=== PATIENT | male | born 1985 | race Caucasian/White ===

== ENCOUNTER 2017-01-26 17:17 | Emergency (ER) | payer BC, OTHER ==
[2017-01-26 17:50] VITALS: BP 127/74; PULSE 77; RESP 16; TEMP 98.8
--- NOTE | 2017-01-26 19:11 | ED ---
General Adult HPI - General Chief complaint: Upper Respiratory Infection Stated complaint: ENT Time Seen by Provider: 01/26/17 18:46 Source: patient, RN notes reviewed Mode of arrival: ambulatory Limitations: no limitations - History of Present Illness Initial comments: This is a 31-year-old male who presents with symptoms of sinus pressure that started last . Patient states he is been taking his azithromycin and has one dose left. Patient complains of some ear fullness and sinus headache but denies any cough, sore throat, fever or chills. Patient denies any shortness of breath. Patient denies any recent chest pain, abdominal pain, nausea/vomiting/diarrhea, back pain, numbness, tingling, hematuria, or visual changes, or any other complaints. - Related Data Home Medications Medication Instructions Recorded Confirmed Insulin Aspart [NovoLOG] 5 unit SQ AC-TID 06/03/14 01/26/17 Insulin Glargine [Lantus] 15 unit SQ HS 06/03/14 01/26/17 Azithromycin [Zithromax Z-pack] See Taper PO DAILY 01/26/17 01/26/17 Previous Rx's Medication Instructions Recorded Fluticasone Nasal [place] [Flonase 1 - 2 spray EA NOSTRIL DAILY #1 01/26/17 Nasal [place]] bottle Allergies Allergy/AdvReac Type Severity Reaction Status Date / Time No Known Allergies Allergy Verified 01/26/17 18:45 Review of Systems ROS Statement: Those systems with pertinent positive or pertinent negative responses have been documented in the HPI. ROS Other: All systems not noted in ROS Statement are negative. Past Medical History Past Medical History: Diabetes Mellitus History of Any Multi-Drug Resistant Organisms: None Reported Past Surgical History: No Surgical Hx Reported Past Psychological History: No Psychological Hx Reported Smoking Status: Never smoker Past Alcohol Use History: Occasional Past Drug Use History: Marijuana General Exam - General Exam Comments Initial Comments: General: The patient is awake and alert, in no distress, and does not appear acutely ill. Eye: Pupils are equal, round and reactive to light, extra-ocular movements are intact. No nystagmus. There is normal conjunctiva bilaterally. No signs of icterus. Ears: TMs pink and pearly with intact cone of light bilaterally. Normal external ear canals Nose: Nasal turbinates erythematous and edematous. Mouth and throat: There are moist mucous membranes and no oral lesions. Neck: The neck is supple, there is no tenderness or JVD. Cardiovascular: There is a regular rate and rhythm. No murmur, rub or gallop is appreciated. Respiratory: Lungs are clear to auscultation, respirations are non-labored, breath sounds are equal. No wheezes, stridor, rales, or rhonchi. Musculoskeletal: Normal ROM, no tenderness. Strength 5/5. Sensation intact. Radial pulses equal bilaterally 2+. Neurological: A&O x 3. CN II-XII intact, There are no obvious motor or sensory deficits. Coordination appears grossly intact. Speech is normal. Skin: Skin is warm and dry and no rashes or lesions are noted. Psychiatric: Cooperative, appropriate mood & affect, normal judgment. Limitations: no limitations Course Vital Signs 01/26/17 17:47 Temperature 98.8 F Pulse Rate 77 Respiratory 16 Rate Blood Pressure 127/74 O2 Sat by Pulse 99 Oximetry Medical Decision Making - Medical Decision Making Is a 31-year-old presents with symptoms of sinus infection. Patient has already been treated with antibiotics and still has 1 day left. On physical exam nasal turbinates are erythematous and edematous. Patient is afebrile in the EC today. I discussed that patient should finish his antibiotics. I discussed [id number] nasal rinses and nasal sprays. I discussed over-the- counter decongestants and ALLERGY pills for symptom relief. I discussed that most cases of sinusitis are viral. Patient was given a prescription for Flonase. I discussed that this is a steroid. I discussed that there is a risk that it can interfere with his blood sugar control due to the patient's history of diabetes. Discussed that patient should shop medication if it is affecting his blood glucose levels. I discussed return parameters. Discussed that patient should follow up with PCP in one to 2 days or return to the [facility] for any worsening symptoms or for any further concerns. Patient was receptive to this plan and patient will be discharged home. Disposition Clinical Impression: Sinusitis Disposition: HOME SELF-CARE Condition: Good Instructions: Sinusitis (ED) Additional Instructions: Please use Flonase as prescribed. May also try nasal rinses, Sudafed, Claritin for symptom relief. Please finish entire course of antibiotics currently on. Please use medication as discussed. Please follow-up with family doctor in the next 2 days of symptoms have not improved. Please return to emergency room if the symptoms increase or worsen or for any other concerns. Prescriptions: Fluticasone Nasal [place] [Flonase Nasal [place]] 1 - 2 spray EA NOSTRIL DAILY #1 bottle Referrals: Av Bain MD [Primary Care Provider] - 1-2 days Time of Disposition: 19:11
== END 2017-01-26 19:15 | disposition home or self-care (01) ==
LOC: EC 17:17
DX: J32.9 Chronic sinusitis, unspecified (principal); E11.9 Type 2 diabetes mellitus without complications; Z79.4 Long term (current) use of insulin
CPT/HCPCS: 99283

== ENCOUNTER 2017-01-28 12:30 | Emergency (ER) | payer OTHER ==
[2017-01-28 12:57] VITALS: BP 126/68; PULSE 73; RESP 16; TEMP 98.7
--- NOTE | 2017-01-28 13:20 | ED ---
General Adult HPI - General Chief complaint: Upper Respiratory Infection Stated complaint: Sinus Time Seen by Provider: 01/28/17 13:12 Source: patient, RN notes reviewed Mode of arrival: ambulatory Limitations: no limitations - History of Present Illness Initial comments: 31-year-old male who presents emergency room today with chief complaint of cough congestion and rhinorrhea over the last 10 days. Does admit that he was at the family doctor's office prescribed azithromycin for sinus infection. States that vision is antibiotic is still having the same symptoms. He states he didn't follow up here in the emergency room actually 2 days ago for this complaint was advised [id number] medication such as Flonase, Sudafed, Claritin. States been using this little relief. Does admit that at times feels like he's got fullness and pressure in his head and feels lightheaded at times. He denies any other complaints associated symptoms. Patient denies any recent fever, chills, shortness of breath, chest pain, back pain, abdominal pain , nausea or vomiting, numbness or tingling, dysuria or hematuria, constipation or diarrhea, headaches or visual changes, or any other complaints. - Related Data Home Medications Medication Instructions Recorded Confirmed Insulin Aspart [NovoLOG] 5 unit SQ AC-TID 06/03/14 01/26/17 Insulin Glargine [Lantus] 15 unit SQ HS 06/03/14 01/26/17 Azithromycin [Zithromax Z-pack] See Taper PO DAILY 01/26/17 01/26/17 Previous Rx's Medication Instructions Recorded Fluticasone Nasal [place] [Flonase 1 - 2 spray EA NOSTRIL DAILY #1 01/26/17 Nasal [place]] bottle Amoxicillin/Potassium Clav 1 each PO Q12HR #20 tab 01/28/17 [Augmentin 875-125 Tablet] Allergies Allergy/AdvReac Type Severity Reaction Status Date / Time No Known Allergies Allergy Verified 01/28/17 12:57 Review of Systems ROS Statement: Those systems with pertinent positive or pertinent negative responses have been documented in the HPI. ROS Other: All systems not noted in ROS Statement are negative. Past Medical History Past Medical History: Diabetes Mellitus History of Any Multi-Drug Resistant Organisms: None Reported Past Surgical History: No Surgical Hx Reported Past Psychological History: No Psychological Hx Reported Smoking Status: Never smoker Past Alcohol Use History: Occasional Past Drug Use History: Marijuana General Exam - General Exam Comments Initial Comments: General: The patient is awake and alert, in no distress, and does not appear acutely ill. Eye: Pupils are equal, round and reactive to light, extra-ocular movements are intact. No nystagmus. There is normal conjunctiva bilaterally. No signs of icterus. Ears, nose, mouth and throat: There are moist mucous membranes and no oral lesions. Multiple tenderness over the maxillary sinuses bilaterally. TMs clear bilaterally. Neck: The neck is supple, there is no tenderness or JVD. Cardiovascular: There is a regular rate and rhythm. No murmur, rub or gallop is appreciated. Respiratory: Lungs are clear to auscultation, respirations are non-labored, breath sounds are equal. No wheezes, stridor, rales, or rhonchi. Musculoskeletal: Normal ROM, no tenderness. Strength 5/5. Sensation intact. Pulses equal bilaterally 2+. Neurological: A&O x 3. CN II-XII intact, There are no obvious motor or sensory deficits. Coordination appears grossly intact. Speech is normal. Skin: Skin is warm and dry and no rashes or lesions are noted. Psychiatric: Cooperative, appropriate mood & affect, normal judgment. Limitations: no limitations Course Vital Signs 01/28/17 12:54 Temperature 98.7 F Pulse Rate 73 Respiratory 16 Rate Blood Pressure 126/68 O2 Sat by Pulse 99 Oximetry Medical Decision Making - Medical Decision Making Patient will be placed on Augmentin for sinus infection as he has had symptoms for 10 days with no relief. Advised faulted family doctor. Advised continue [id number] medications. Disposition Clinical Impression: Sinus infection Disposition: HOME SELF-CARE Condition: Good Instructions: Sinusitis (ED) Additional Instructions: Please use medication as discussed. Please follow-up with family doctor in the next 2 days of symptoms have not improved. Please return to emergency room if the symptoms increase or worsen or for any other concerns. Prescriptions: Amoxicillin/Potassium Clav [Augmentin 875-125 Tablet] 1 each PO Q12HR #20 tab Time of Disposition: 13:20
== END 2017-01-28 13:28 | disposition home or self-care (01) ==
LOC: EC 12:30
DX: J32.9 Chronic sinusitis, unspecified (principal); E11.9 Type 2 diabetes mellitus without complications; Z79.4 Long term (current) use of insulin; Z79.51 Long term (current) use of inhaled steroids
CPT/HCPCS: 99283

== ENCOUNTER 2017-02-04 20:19 | Emergency (ER) | payer OTHER ==
--- NOTE | 2017-02-04 20:58 | ED ---
General Adult HPI - General Chief complaint: ENT Stated complaint: Dizziness Time Seen by Provider: 02/04/17 20:37 Source: patient Mode of arrival: EMS Limitations: no limitations - History of Present Illness Initial comments: 31-year-old male patient presents to emergency department after having a near syncopal episode while at work. Patient states that he was working became very dizzy, sounds became muffled, and vision went dark. He states he has been having lightheadedness for the past week. Patient states that during this episode his cheeks became very hot and flushed, and his hands became cold. He states he has had headaches every day for the past 3 days. He states he is currently nauseated, denies any vomiting. Patient denies any chest pain, palpitations, shortness of breath, back pain, weakness, abdominal pain, constipation or diarrhea. Denies any blurred or double vision. Denies any hematuria, dysuria, frequency or urgency. Patient was seen here twice week for sinus symptoms and given antibiotics for sinusitis. Patient does have a past medical history significant for type 1 diabetes. Patient takes 5 units of Humalog before meals and 15 units of Lantus at bedtime. Patient states he does not check his blood sugar due to high cost of test strips. - Related Data Home Medications Medication Instructions Recorded Confirmed Insulin Aspart [NovoLOG] 5 unit SQ AC-TID 06/03/14 02/04/17 Insulin Glargine [Lantus] 15 unit SQ HS 06/03/14 02/04/17 Amoxicillin/Potassium Clav 1 tab PO Q12HR 02/04/17 02/04/17 [Augmentin 875-125 Tablet] Previous Rx's Medication Instructions Recorded Fluticasone Nasal [place] [Flonase 1 - 2 spray EA NOSTRIL DAILY #1 01/26/17 Nasal [place]] bottle Allergies Allergy/AdvReac Type Severity Reaction Status Date / Time No Known Allergies Allergy Verified 02/04/17 20:41 Review of Systems ROS Statement: Those systems with pertinent positive or pertinent negative responses have been documented in the HPI. ROS Other: All systems not noted in ROS Statement are negative. Past Medical History Past Medical History: Diabetes Mellitus History of Any Multi-Drug Resistant Organisms: None Reported Past Surgical History: No Surgical Hx Reported Past Psychological History: No Psychological Hx Reported Smoking Status: Never smoker Past Alcohol Use History: Occasional Past Drug Use History: Marijuana General Exam Limitations: no limitations General appearance: alert, in no apparent distress Head exam: Present: atraumatic, normocephalic, normal inspection Eye exam: Present: normal appearance, PERRL, EOMI. Absent: scleral icterus, conjunctival injection, periorbital swelling ENT exam: Present: normal exam, normal oropharynx, mucous membranes moist. Absent: mucous membranes dry Neck exam: Present: normal inspection. Absent: tenderness, meningismus, lymphadenopathy Respiratory exam: Present: normal lung sounds bilaterally. Absent: respiratory distress, wheezes, rales, rhonchi, stridor Cardiovascular Exam: Present: regular rate, normal rhythm, normal heart sounds. Absent: systolic murmur, diastolic murmur, rubs, gallop, clicks GI/Abdominal exam: Present: soft, normal bowel sounds. Absent: distended, tenderness, guarding, rebound, rigid Extremities exam: Present: normal inspection, full ROM, normal capillary refill. Absent: tenderness, pedal edema, joint swelling, calf tenderness Back exam: Present: normal inspection Neurological exam: Present: alert, oriented X3, CN II-XII intact, other ( Strength equal in all extremities 5/5.) Psychiatric exam: Present: normal affect, normal mood Skin exam: Present: warm, dry, intact, normal color. Absent: rash Course Vital Signs 02/04/17 20:38 Temperature 100.1 F H Pulse Rate 62 Respiratory 18 Rate Blood Pressure 141/92 O2 Sat by Pulse 98 Oximetry Medical Decision Making - Medical Decision Making 31-year-old male patient presented to emergency department today for a near syncopal episode while at work. Patient does have a past medical history significant for type 1 diabetes mellitus, he does take insulin, but he does not check his blood sugars. Patient also is being currently treated for a sinus infection. It is believed at this time that symptoms may be related to hypoglycemic episodes. Patient will be encouraged to monitor his blood glucose , and continue his antibiotics for treatment of his sinusitis. Patient will be discharged home at this time to follow-up with his primary care provider in one to 2 days for a recheck. Patient verbalizes understanding and agrees with this plan. - Lab Data Result diagrams: 02/04/17 20:57 02/04/17 20:57 Lab Results 03/15/17 03/15/17 03/15/17 Range/Units 20:57 20:57 21:03 WBC 5.8 (3.8-10.6) k/uL RBC 4.48 (4.30-5.90) m/uL Hgb 13.6 (13.0-17.5) gm/dL Hct 40.2 (39.0-53.0) % MCV 89.7 (80.0-100.0) fL MCH 30.3 (25.0-35.0) pg MCHC 33.8 (31.0-37.0) g/dL RDW 12.5 (11.5-15.5) % Plt Count 209 (150-450) k/uL Neutrophils % 73 % Lymphocytes % 17 % Monocytes % 7 % Eosinophils % 0 % Basophils % 0 % Neutrophils # 4.3 (1.3-7.7) k/uL Lymphocytes # 1.0 (1.0-4.8) k/uL Monocytes # 0.4 (0-1.0) k/uL Eosinophils # 0.0 (0-0.7) k/uL Basophils # 0.0 (0-0.2) k/uL Sodium 141 (137-145) mmol/L Potassium 4.0 (3.5-5.1) mmol/L Chloride 101 (98-107) mmol/L Carbon Dioxide 30 (22-30) mmol/L Anion Gap 10 mmol/L BUN 12 (9-20) mg/dL Creatinine 0.84 (0.66-1.25) mg/dL Est GFR (MDRD) Af Amer >60 (>60 ml/min/1.73 sqM) Est GFR (MDRD) Non-Af >60 (>60 ml/min/1.73 sqM) Glucose 235 H (74-99) mg/dL POC Glucose (mg/dL) 241 H (75-99) mg/dL POC Glu Rn Transfer ID [place], [place] Calcium 9.6 (8.4-10.2) mg/dL Total Bilirubin 1.2 (0.2-1.3) mg/dL AST 21 (17-59) U/L ALT 40 (21-72) U/L Alkaline Phosphatase 71 (38-126) U/L Total Protein 7.1 (6.3-8.2) g/dL Albumin 4.2 (3.5-5.0) g/dL Acetone, Qual Negative (Negative) - Radiology Data Radiology results: report reviewed CT of the brain without contrast was obtained, impression by Dr. Ch shows no acute intracranial hemorrhage, mass effect, or midline shift. Disposition Clinical Impression: Near syncope, Uncontrolled diabetes mellitus Disposition: HOME SELF-CARE Condition: Stable Instructions: Near Syncope (ED), Type 1 Diabetes in Adults (ED), Sinusitis (ED) Additional Instructions: Monitor blood glucose prior to administering insulin. Follow-up with primary care provider in one to 2 days for recheck. Complete antibiotic prescription and full. Return to emergency department for any worsening, new, or concerning symptoms. Referrals: Av Bain MD [Primary Care Provider] - 1-2 days Time of Disposition: 21:58
[2017-02-04 21:14] LABS: Basophils % (A) 0 %; CH 31.1; CHCM 34.8; Eosinophils % (A) 0 %; HCT 40.2 % (39.0-53.0); HDW 2.57; HGB 13.6 gm/dL (13.0-17.5); Luc # (Auto) 0.16; Luc % (Auto) 3; Lymphocytes % (A) 17 %; MCH 30.3 pg (25.0-35.0); MCHC 33.8 g/dL (31.0-37.0); MCV 89.7 fL (80.0-100.0); Mean Platelet Volume 8.9; Monocytes # (A) 0.4 k/uL (0-1.0); Monocytes % (A) 7 %; Neutrophils # (A) 4.3 k/uL (1.3-7.7); Neutrophils % (A) 73 %; RBC 4.48 m/uL (4.30-5.90); RDW 12.5 % (11.5-15.5); WBC 5.8 k/uL (3.8-10.6); WBC (Perox) 5.89
[2017-02-04 21:14] LABS: Glucose,Whole Blood 241 mg/dL (75-99)
[2017-02-04 21:28] LABS: ALT 40 U/L (21-72); AST 21 U/L (17-59); Alkaline Phosphatase 71 U/L (38-126); Anion Gap 10 mmol/L; Blood Urea Nitrogen 12 mg/dL (9-20); Calcium 9.6 mg/dL (8.4-10.2); Carbon Dioxide 30 mmol/L (22-30); Chloride 101 mmol/L (98-107); Glucose 235 mg/dL (74-99); Non-African American GFR(MDRD) >60 (>60 ml/min/1.73 sqM); Sodium 141 mmol/L (137-145); Total Bilirubin 1.2 mg/dL (0.2-1.3); Total Protein 7.1 g/dL (6.3-8.2)
--- NOTE | 2017-02-04 21:50 | CT ---
EXAMINATION TYPE: CT brain wo con DATE OF EXAM: 02/04/2017 9:20 PM COMPARISON: NONE HISTORY: Patient states he has been having sinus and ear congestion, near syncope today. CT DLP: 1133.10 mGycm Automated exposure control for dose reduction was used. FINDINGS: There is no acute intracranial hemorrhage, mass effect, or midline shift identified. The ventricles and sulci are within normal limits in size. Skeletal structures are unremarkable. The globes are intact. The mastoid sinus air cells and middle ear cavities and visualized paranasal s inuses are all clear with the exception of minimal mucosal thickening involving the left maxillary si nus. IMPRESSION: No acute intracranial hemorrhage, mass effect, or midline shift is seen.
[2017-02-04 22:03] VITALS: BP 139/82; PULSE 61; RESP 20; TEMP 99.3
== END 2017-02-04 22:21 | disposition home or self-care (01) ==
LOC: EC 20:19
DX: R55 Syncope and collapse (principal); E10.65 Type 1 diabetes mellitus with hyperglycemia; R11.0 Nausea; Z79.4 Long term (current) use of insulin
CPT/HCPCS: 36415; 70450; 80053; 82009; 85025; 93005; 99285

== ENCOUNTER 2017-02-06 15:06 | Emergency (ER) | payer OTHER ==
[2017-02-06] MEDS ORDERED: ONDANSETRON ODT 4 MG TAB PO STA (17:18)
[2017-02-06] MEDS ORDERED: ACETAMINOPHEN TAB 500 MG TAB PO STA (17:18)
--- NOTE | 2017-02-06 17:21 | ED ---
General Adult HPI - General Chief complaint: Chest Pain Stated complaint: Dizzy,Headache/vomiting Time Seen by Provider: 02/06/17 17:03 Source: patient, RN notes reviewed Mode of arrival: wheelchair Limitations: no limitations - History of Present Illness Initial comments: Patient 31-year-old male who presents emergency room today with chief complaint of sinus infection. Patient has been seen here in the emergency room for an complaint over the last 2 weeks. Patient does admit that he's been diagnosed with sinus infection was on azithromycin return from family doctor. Patient states that he had a changed to Augmentin which she spends still taking. Since he stopped and started again. States never started on Flonase. Does admit that he's tried Claritin at home and been using ibuprofen for headaches. Does admit to increased rhinorrhea. Does admit to a sore throat at times. Admits that over the last days had symptoms of nausea vomiting and some diarrhea. Patient does admit that he had some pain right side of the abdomen and lower chest wall. He states not having any pain or discomfort this time. Mitts to cough. Denies sputum production. He denies any complaints or symptoms. Patient denies any recent shortness of breath, chest pain, back pain, numbness or tingling, dysuria or hematuria, constipation, headaches or visual changes, or any other complaints. - Related Data Home Medications Medication Instructions Recorded Confirmed Insulin Aspart [NovoLOG] 5 unit SQ AC-TID 06/03/14 02/06/17 Insulin Glargine [Lantus] 15 unit SQ HS 06/03/14 02/06/17 Amoxicillin/Potassium Clav 1 tab PO Q12HR 02/04/17 02/06/17 [Augmentin 875-125 Tablet] Previous Rx's Medication Instructions Recorded Fluticasone Propionate [Flonase 1 - 2 spray EA NOSTRIL DAILY 5 Days 02/06/17 Allergy Relief] Loratadine [Claritin] 10 mg PO DAILY 20 Days 02/06/17 Ondansetron Odt [Zofran ODT] 4 mg PO Q8HR PRN #20 tab 02/06/17 Allergies Allergy/AdvReac Type Severity Reaction Status Date / Time No Known Allergies Allergy Verified 02/06/17 17:31 Review of Systems ROS Statement: Those systems with pertinent positive or pertinent negative responses have been documented in the HPI. ROS Other: All systems not noted in ROS Statement are negative. Past Medical History Past Medical History: Diabetes Mellitus History of Any Multi-Drug Resistant Organisms: None Reported Past Surgical History: No Surgical Hx Reported Past Psychological History: No Psychological Hx Reported Smoking Status: Never smoker Past Alcohol Use History: Occasional Past Drug Use History: Marijuana General Exam Limitations: no limitations Course Vital Signs 02/06/17 02/06/17 02/06/17 15:29 17:09 17:52 Temperature 100.6 F H 98.4 F Pulse Rate 74 73 76 Respiratory 18 16 16 Rate Blood Pressure 143/82 143/91 139/92 O2 Sat by Pulse 98 99 99 Oximetry Medical Decision Making - Medical Decision Making Patient reexamined at this time shows no signs of distress. Patient resting comfortably in the stretcher. Options were discussed about IV and labs. He is currently declined stating that he did have labs done recently here in the emergency room. He's had multiple visits for this complaint. He is not been compliant with medications that it been prescribed does not have his prescription for Flonase. Will be given a prescription again. Advised to use [id number] Claritin and Sudafed for his symptoms. Advised to increase oral fluids. Advised not to drink a pop. Advised to use nausea medication for symptoms as needed. Advised return to emergency room symptoms increase or worsen or for any other concerns. Disposition Clinical Impression: Acute sinusitis Disposition: HOME SELF-CARE Condition: Good Instructions: Sinusitis (ED) Additional Instructions: Please use medication as discussed. Please follow-up with family doctor in the next 2 days of symptoms have not improved. Please return to emergency room if the symptoms increase or worsen or for any other concerns. Prescriptions: Fluticasone Propionate [Flonase Allergy Relief] 1 - 2 spray EA NOSTRIL DAILY 5 Days Loratadine [Claritin] 10 mg PO DAILY 20 Days Ondansetron Odt [Zofran ODT] 4 mg PO Q8HR PRN #20 tab PRN Reason: Nausea Time of Disposition: 18:40
[2017-02-06 17:40] VITALS: RESP 16
[2017-02-06 19:12] VITALS: BP 146/83; PULSE 58; TEMP 98
--- NOTE | 2017-02-10 18:15 | XR ---
EXAMINATION TYPE: XR chest 2V DATE OF EXAM: 02/06/2017 5:35 PM COMPARISON: 03/15/2015 HISTORY: Cough TECHNIQUE: Frontal and lateral views of the chest are obtained. FINDINGS: Heart and mediastinum are normal. Lungs are clear. Diaphragm is normal. Bony thorax appear s normal. There are chest leads. IMPRESSION: Normal chest. No change.
== END 2017-02-06 19:11 | disposition home or self-care (01) ==
LOC: EC 15:06
DX: J01.90 Acute sinusitis, unspecified (principal); R19.7 Diarrhea, unspecified; R10.9 Unspecified abdominal pain; R07.89 Other chest pain; E11.9 Type 2 diabetes mellitus without complications; Z79.4 Long term (current) use of insulin
CPT/HCPCS: 71020; 99284

== ENCOUNTER 2018-05-30 11:09 | Emergency (ER) | payer OTHER ==
[2018-05-30 11:33] VITALS: RESP 20
--- NOTE | 2018-05-30 11:51 | ED ---
General Adult HPI - General Chief complaint: Dizziness Stated complaint: Dizzy, Finger numbness Time Seen by Provider: 05/30/18 11:36 Source: patient, RN notes reviewed Mode of arrival: ambulatory Limitations: no limitations - History of Present Illness Initial comments: Patient 32-year-old male presenting to the emergency room today with a chief complaint of headache. He doesn't that it started 4 days ago. He doesn't that he was at work. He does admit that he went to [facility]. Was evaluated there diagnosed with lens infection. Patient states he was told to take an [id number] decongestant. He states he's been taking off brand of Sudafed. Patient states that when he took this medication made him by mouth worse. He states is taken a few times. He states he's felt dizzy at times after this medication. He states that he's noticed some numbness sensation down to his fingertips. He states he's not had any other symptoms. He states still expecting a head pressure. He does admit that all week ago he had some cough congestion has not had any more cough but just feels the pressure behind his eyes. Patient denies any other symptoms or complaints at this time. Patient denies any recent fever, chills, shortness of breath, chest pain, back pain, abdominal pain, nausea or vomiting, dysuria or hematuria, constipation or diarrhea, visual changes, or any other complaints. - Related Data Home Medications Medication Instructions Recorded Confirmed Insulin Aspart [NovoLOG] 5 unit SQ AC-TID 06/03/14 05/30/18 Insulin Glargine [Lantus] 12 unit SQ HS 06/03/14 05/30/18 Previous Rx's Medication Instructions Recorded Fluticasone Propionate [Flonase 1 - 2 spray EA NOSTRIL DAILY 5 05/30/18 Allergy Relief] Days ml Allergies Allergy/AdvReac Type Severity Reaction Status Date / Time No Known Allergies Allergy Verified 05/30/18 11:33 Review of Systems ROS Statement: Those systems with pertinent positive or pertinent negative responses have been documented in the HPI. ROS Other: All systems not noted in ROS Statement are negative. Past Medical History Past Medical History: Diabetes Mellitus History of Any Multi-Drug Resistant Organisms: None Reported Past Surgical History: No Surgical Hx Reported Past Psychological History: No Psychological Hx Reported Smoking Status: Never smoker Past Alcohol Use History: Occasional Past Drug Use History: Marijuana General Exam - General Exam Comments Initial Comments: General: The patient is awake and alert, in no distress, and does not appear acutely ill. Eye: Pupils are equal, round and reactive to light, extra-ocular movements are intact. No nystagmus. There is normal conjunctiva bilaterally. No signs of icterus. Ears, nose, mouth and throat: There are moist mucous membranes and no oral lesions. Patient does have tenderness over the maxillary sinuses. Neck: The neck is supple, there is no tenderness or JVD. Cardiovascular: There is a regular rate and rhythm. No murmur, rub or gallop is appreciated. Respiratory: Lungs are clear to auscultation, respirations are non-labored, breath sounds are equal. No wheezes, stridor, rales, or rhonchi. Musculoskeletal: Normal ROM, no tenderness. Strength 5/5. Sensation intact. Pulses equal bilaterally 2+. Neurological: A&O x 3. CN II-XII intact, There are no obvious motor or sensory deficits. Coordination appears grossly intact. Speech is normal. Skin: Skin is warm and dry and no rashes or lesions are noted. Psychiatric: Cooperative, appropriate mood & affect, normal judgment. Limitations: no limitations Course Vital Signs 05/30/18 11:30 Temperature 98.5 F Pulse Rate 56 L Respiratory 20 Rate Blood Pressure 126/77 O2 Sat by Pulse 100 Oximetry Medical Decision Making - Medical Decision Making Patient's symptoms are consistent with sinus infection. Patient does have tenderness over the maxillary sinuses. He just met that it began feel worse after taking medication as Sudafed. Advised patient that some people do have a reaction to this medication. Patient labs been reviewed does show his glucose 250. He has not taken any insulin yet today. Patient does admit feeling better after IV fluids. 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 He was advised to increase oral fluids of water. Patient will be treated with Flonase for his sinus congestion and advised follow-up family doctor next 2 days return if symptoms increase or worsen. - Lab Data Result diagrams: 05/30/18 12:26 05/30/18 12:26 Lab Results 05/30/18 05/30/18 Range/Units 12:26 12:26 WBC 4.6 (3.8-10.6) k/uL RBC 4.75 (4.30-5.90) m/uL Hgb 14.6 (13.0-17.5) gm/dL Hct 42.1 (39.0-53.0) % MCV 88.5 (80.0-100.0) fL MCH 30.7 (25.0-35.0) pg MCHC 34.7 (31.0-37.0) g/dL RDW 13.0 (11.5-15.5) % Plt Count 228 (150-450) k/uL Neutrophils % 55 % Lymphocytes % 35 % Monocytes % 8 % Eosinophils % 1 % Basophils % 1 % Neutrophils # 2.5 (1.3-7.7) k/uL Lymphocytes # 1.6 (1.0-4.8) k/uL Monocytes # 0.4 (0-1.0) k/uL Eosinophils # 0.0 (0-0.7) k/uL Basophils # 0.0 (0-0.2) k/uL Sodium 142 (137-145) mmol/L Potassium 4.7 (3.5-5.1) mmol/L Chloride 101 (98-107) mmol/L Carbon Dioxide 32 H (22-30) mmol/L Anion Gap 9 mmol/L BUN 19 (9-20) mg/dL Creatinine 0.71 (0.66-1.25) mg/dL Est GFR (CKD-EPI)AfAm >90 (>60 ml/min/1.73 sqM) Est GFR (CKD-EPI)NonAf >90 (>60 ml/min/1.73 sqM) Glucose 250 H (74-99) mg/dL Calcium 9.5 (8.4-10.2) mg/dL Total Bilirubin 0.9 (0.2-1.3) mg/dL AST 15 L (17-59) U/L ALT 30 (21-72) U/L Alkaline Phosphatase 64 (38-126) U/L Total Protein 6.7 (6.3-8.2) g/dL Albumin 4.0 (3.5-5.0) g/dL Disposition Clinical Impression: Acute sinusitis Disposition: HOME SELF-CARE Condition: Good Instructions: Sinusitis (ED) Additional Instructions: Please use medication as discussed. Please follow-up with family doctor in the next 2 days of symptoms have not improved. Please return to emergency room if the symptoms increase or worsen or for any other concerns. Prescriptions: Fluticasone Propionate [Flonase Allergy Relief] 1 - 2 spray EA NOSTRIL DAILY 5 Days ml Is patient prescribed a controlled substance at d/c from ED?: No Referrals: Av Bain MD [Primary Care Provider] - 1-2 days Time of Disposition: 13:22
[2018-05-30] MEDS ORDERED: SODIUM CHLORIDE 0.9% 1,000 ML IV STA (12:02)
[2018-05-30 12:39] LABS: Basophils % (A) 1 %; Eosinophils % (A) 1 %; HCT 42.1 % (39.0-53.0); HGB 14.6 gm/dL (13.0-17.5); Lymphocytes # (A) 1.6 k/uL (1.0-4.8); Lymphocytes % (A) 35 %; MCH 30.7 pg (25.0-35.0); MCHC 34.7 g/dL (31.0-37.0); MCV 88.5 fL (80.0-100.0); Mean Platelet Volume 7.3; Monocytes # (A) 0.4 k/uL (0-1.0); Monocytes % (A) 8 %; Neutrophils # (A) 2.5 k/uL (1.3-7.7); Neutrophils % (A) 55 %; Platelet Count 228 k/uL (150-450); RBC 4.75 m/uL (4.30-5.90); WBC 4.6 k/uL (3.8-10.6)
[2018-05-30 12:55] LABS: ALT 30 U/L (21-72); AST 15 U/L (17-59); Alkaline Phosphatase 64 U/L (38-126); Anion Gap 9 mmol/L; Blood Urea Nitrogen 19 mg/dL (9-20); Calcium 9.5 mg/dL (8.4-10.2); Carbon Dioxide 32 mmol/L (22-30); Chloride 101 mmol/L (98-107); Glucose 250 mg/dL (74-99); Potassium 4.7 mmol/L (3.5-5.1); Sodium 142 mmol/L (137-145); Total Bilirubin 0.9 mg/dL (0.2-1.3); Total Protein 6.7 g/dL (6.3-8.2)
[2018-05-30 13:34] VITALS: BP 118/70; PULSE 72; TEMP 97.9
== END 2018-05-30 13:33 | disposition home or self-care (01) ==
LOC: EC 11:09
DX: J01.90 Acute sinusitis, unspecified (principal); R20.0 Anesthesia of skin; E11.9 Type 2 diabetes mellitus without complications; Z79.4 Long term (current) use of insulin
CPT/HCPCS: 36415; 80053; 85025; 96360; 99284

== ENCOUNTER 2018-06-01 07:47 | Observation (INO) | payer OTHER ==
[2018-06-01] MEDS ORDERED: MECLIZINE 12.5 MG TAB PO STA (08:09)
[2018-06-01] MEDS ORDERED: SODIUM CHLORIDE 0.9% 1,000 ML IV STA (08:09)
[2018-06-01 08:15] LABS: Glucose,Whole Blood 206 mg/dL (75-99)
[2018-06-01 08:40] LABS: Basophils % (A) 0 %; Eosinophils % (A) 1 %; HCT 39.9 % (39.0-53.0); HGB 13.2 gm/dL (13.0-17.5); Lymphocytes # (A) 1.5 k/uL (1.0-4.8); Lymphocytes % (A) 32 %; MCH 28.5 pg (25.0-35.0); MCV 86.3 fL (80.0-100.0); Mean Platelet Volume 7.8; Monocytes # (A) 0.3 k/uL (0-1.0); Monocytes % (A) 7 %; Neutrophils # (A) 2.7 k/uL (1.3-7.7); Neutrophils % (A) 59 %; Platelet Count 204 k/uL (150-450); RBC 4.62 m/uL (4.30-5.90); RDW 12.8 % (11.5-15.5); WBC 4.7 k/uL (3.8-10.6)
[2018-06-01 08:49] LABS: ALT 29 U/L (21-72); AST 16 U/L (17-59); Albumin 3.7 g/dL (3.5-5.0); Alkaline Phosphatase 58 U/L (38-126); Anion Gap 7 mmol/L; Blood Urea Nitrogen 16 mg/dL (9-20); Calcium 9.2 mg/dL (8.4-10.2); Carbon Dioxide 32 mmol/L (22-30); Chloride 102 mmol/L (98-107); Glucose 199 mg/dL (74-99); Potassium 3.9 mmol/L (3.5-5.1); Sodium 141 mmol/L (137-145); Total Bilirubin 0.8 mg/dL (0.2-1.3); Total Protein 6.1 g/dL (6.3-8.2)
--- NOTE | 2018-06-01 09:17 | XR ---
EXAMINATION TYPE: XR chest 2V DATE OF EXAM: 06/01/2018 COMPARISON: Chest x-ray February 06, 2017. HISTORY: Sore throat cough and congestion for one week, pneumonia? Per order. TECHNIQUE: Frontal and lateral views of the chest are obtained. FINDINGS: There is no focal air space opacity, pleural effusion, or pneumothorax seen. The cardiac silhouette size is within normal limits. The osseous structures are intact. IMPRESSION: No suspicious acute infiltrate.
--- NOTE | 2018-06-01 09:28 | ED ---
Dizziness HPI - General Chief Complaint: Dizziness Stated Complaint: Dizziness/Chest Pain Time Seen by Provider: 06/01/18 08:02 Source: patient Mode of arrival: wheelchair Limitations: no limitations - History of Present Illness Initial Comments: 32 years old fell has ongoing dizziness for about a week now he was treated with the sinus pressure or sinus infection he does have a history of diabetes he he woke up this morning he was quite dizzy he also developed some chest pain on the right side that was at 7:30 this morning it lasted off and on for a half an hour chest pain is resolved now, his medications worse were changed recently he denies any history of for blood clots as well as coronary artery disease he denies any history of any brain tumors in his family and nobody had any brain tumors or any aneurysms - Related Data Home Medications Medication Instructions Recorded Confirmed Insulin Aspart [NovoLOG] 5 unit SQ AC-TID 06/03/14 06/01/18 Insulin Glargine [Lantus] 12 unit SQ HS 06/03/14 06/01/18 Previous Rx's Medication Instructions Recorded Fluticasone Propionate [Flonase 1 - 2 spray EA NOSTRIL DAILY 5 05/30/18 Allergy Relief] Days ml Allergies Allergy/AdvReac Type Severity Reaction Status Date / Time No Known Allergies Allergy Verified 06/01/18 08:18 Review of Systems ROS Statement: Those systems with pertinent positive or pertinent negative responses have been documented in the HPI. ROS Other: All systems not noted in ROS Statement are negative. Past Medical History Past Medical History: Diabetes Mellitus History of Any Multi-Drug Resistant Organisms: None Reported Past Surgical History: No Surgical Hx Reported Past Psychological History: No Psychological Hx Reported Smoking Status: Never smoker Past Alcohol Use History: Occasional Past Drug Use History: Marijuana General Exam Limitations: no limitations Course Vital Signs 06/01/18 06/01/18 06/01/18 07:49 09:13 09:47 Temperature 98 F Pulse Rate 20 L 47 L Pulse Rate [ 56 L Sitting] Pulse Rate [ 50 L Standing] Pulse Rate [ 47 L Supine] Respiratory 53 H 18 Rate Blood Pressure 131/81 139/85 Blood Pressure 132/81 [Sitting] Blood Pressure 142/80 [Standing] Blood Pressure 135/83 [Supine] O2 Sat by Pulse 100 97 Oximetry She was reassessed at 10:15, he is a diabetic in the he recalls that he does get these chest pains off-and-on sometime in the right side sometime of the left side and his dad had a heart attack around 50 and considering this distracted for diabetes in a recurrent chest discomfort all observe him overnight with a cardiology consult and he be admitted to Dr. Dalal's hospitalist group. 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 Cordoba was contacted Dr. Cordoba agreed that plan as well 06/01/18 10:28 EKG Findings - EKG Comments: EKG Findings:: EKG is a sinus bradycardia ventricular rate is 50 AR interval is 142 QRS duration is 96 QT/QTc is 426/388 review of this EKG does not reveal any ST elevation or ST depression Medical Decision Making - Lab Data Result diagrams: 06/01/18 08:27 06/01/18 08:27 Lab Results 06/01/18 06/01/18 06/01/18 Range/Units 08:07 08:27 08:27 WBC 4.7 (3.8-10.6) k/uL RBC 4.62 (4.30-5.90) m/uL Hgb 13.2 (13.0-17.5) gm/dL Hct 39.9 (39.0-53.0) % MCV 86.3 (80.0-100.0) fL MCH 28.5 (25.0-35.0) pg MCHC 33.0 (31.0-37.0) g/dL RDW 12.8 (11.5-15.5) % Plt Count 204 (150-450) k/uL Neutrophils % 59 % Lymphocytes % 32 % Monocytes % 7 % Eosinophils % 1 % Basophils % 0 % Neutrophils # 2.7 (1.3-7.7) k/uL Lymphocytes # 1.5 (1.0-4.8) k/uL Monocytes # 0.3 (0-1.0) k/uL Eosinophils # 0.0 (0-0.7) k/uL Basophils # 0.0 (0-0.2) k/uL Sodium 141 (137-145) mmol/L Potassium 3.9 (3.5-5.1) mmol/L Chloride 102 (98-107) mmol/L Carbon Dioxide 32 H (22-30) mmol/L Anion Gap 7 mmol/L BUN 16 (9-20) mg/dL Creatinine 0.69 (0.66-1.25) mg/dL Est GFR (CKD-EPI)AfAm >90 (>60 ml/min/1.73 sqM) Est GFR (CKD-EPI)NonAf >90 (>60 ml/min/1.73 sqM) Glucose 199 H (74-99) mg/dL POC Glucose (mg/dL) 206 H (75-99) mg/dL POC Glu Clay Artist ID Anabel Narayanan Calcium 9.2 (8.4-10.2) mg/dL Total Bilirubin 0.8 (0.2-1.3) mg/dL AST 16 L (17-59) U/L ALT 29 (21-72) U/L Alkaline Phosphatase 58 (38-126) U/L Troponin I (0.000-0.034) ng/mL Total Protein 6.1 L (6.3-8.2) g/dL Albumin 3.7 (3.5-5.0) g/dL 06/01/18 Range/Units 08:27 WBC (3.8-10.6) k/uL RBC (4.30-5.90) m/uL Hgb (13.0-17.5) gm/dL Hct (39.0-53.0) % MCV (80.0-100.0) fL MCH (25.0-35.0) pg MCHC (31.0-37.0) g/dL RDW (11.5-15.5) % Plt Count (150-450) k/uL Neutrophils % % Lymphocytes % % Monocytes % % Eosinophils % % Basophils % % Neutrophils # (1.3-7.7) k/uL Lymphocytes # (1.0-4.8) k/uL Monocytes # (0-1.0) k/uL Eosinophils # (0-0.7) k/uL Basophils # (0-0.2) k/uL Sodium (137-145) mmol/L Potassium (3.5-5.1) mmol/L Chloride (98-107) mmol/L Carbon Dioxide (22-30) mmol/L Anion Gap mmol/L BUN (9-20) mg/dL Creatinine (0.66-1.25) mg/dL Est GFR (CKD-EPI)AfAm (>60 ml/min/1.73 sqM) Est GFR (CKD-EPI)NonAf (>60 ml/min/1.73 sqM) Glucose (74-99) mg/dL POC Glucose (mg/dL) (75-99) mg/dL POC Glu Clay Artist ID Calcium (8.4-10.2) mg/dL Total Bilirubin (0.2-1.3) mg/dL AST (17-59) U/L ALT (21-72) U/L Alkaline Phosphatase (38-126) U/L Troponin I <0.012 (0.000-0.034) ng/mL Total Protein (6.3-8.2) g/dL Albumin (3.5-5.0) g/dL Disposition Clinical Impression: Dizziness, Chest pain Disposition: ADMITTED IP TO THIS HOSP Condition: Good Referrals: Av Bain MD [Primary Care Provider] - 1-2 days
--- NOTE | 2018-06-01 09:56 | CT ---
EXAMINATION TYPE: CT brain wo con DATE OF EXAM: 06/01/2018 COMPARISON: 02/04/2017 HISTORY: Dizziness and Headache CT DLP: 1180.[address] of the brain was performed. The ventricles, basal cisterns and sulci overlying the cerebral convexities demonstrate a normal appe arance. There is no evidence for intracranial hemorrhage or sulcal effacement. No mass effects are seen. Osseous calvarium is intact. If symptoms persist consider MRI as clinically warranted. IMPRESSION: 1. No acute intracranial process is seen at this time.
--- NOTE | 2018-06-01 09:56 | CT ---
EXAMINATION TYPE: CT sinus wo con DATE OF EXAM: 06/01/2018 COMPARISON: None HISTORY: Dizziness and Headache CT DLP: 446.[address] of the paranasal sinuses was performed in the axial and coronal planes. Bone and soft tissue settings are submitted. The paranasal sinuses demonstrate normal aeration and development. The paranasal sinuses are free of mucosal thickening or air fluid level. The osteal meatal units are patent bilaterally. The nasal septum is midline. No bony destructive changes are seen within the field of view. IMPRESSION: Normal unenhanced CT of the paranasal sinuses.
[2018-06-01] MEDS ORDERED: NITROGLYCERIN SL TABS 0.4 MG TAB SUBLINGUAL PRN (10:29)
[2018-06-01] MEDS ORDERED: ACETAMINOPHEN TAB 325 MG TAB PO PRN (10:29)
[2018-06-01] MEDS ORDERED: MORPHINE SULFATE 2 MG/ML SYRINGE IVP PRN (10:29)
[2018-06-01 12:02] LABS: Glucose,Whole Blood 184 mg/dL (75-99)
[2018-06-01] MEDS: INSULIN ASPART 100 UNIT/ML 1 ML 10 ML VIAL SQ SCH ×2 (12:03→17:56)
[2018-06-01] MEDS ORDERED: INSULIN ASPART 100 UNIT/ML 1 ML 10 ML VIAL SQ ONE (12:04)
--- NOTE | 2018-06-01 14:46 | P.HPIM ---
History of Present Illness H&P Date: 06/01/18 Chief Complaint: Dizziness Patient is a 32-year-old male with a known history of diabetes type 1 came to ER with complaints of dizziness for about a week. Patient says that it all started with a sore throat about a week ago and lateral was having headache on and off. Today patient about went to work and then he felt very dizzy and the blurry vision along with fading and numbness. Patient also developed right lower chest pain and felt like something pulsating. No radiation. No cough or sputum production. No fever no chills. Patient felt like he is floating and felt very dizzy and came to the hospital for further evaluation. Denied any history of cardiac problems or blood clots. Patient was recently started on Flomax about a week ago for sinus problems. Denied any antibiotic use. Denied any recent travel or sick contacts. EKG showed sinus bradycardia with heart rate around [address] head and CT sinuses in the ER. Showed no acute abnormality. Chest x-ray showed no acute cardio pulmonary process Troponin 1 negative. CBG 206 on admission Review of Systems Constitutional: Patient denies any fever or chills . No generalized weakness or weight loss. Abdomen: Patient denied nausea vomiting and diarrhea and abdominal pain. Cardiovascular: Patient denies any chest pain or short of breath no palpitations. Respiratory: patient denied any cough is from production. No shortness of breath Neurologic: Patient denied any numbness or tingling headache. Patient does have dizziness Musculoskeletal: Patient denies any complaints of joint swelling or deformity. Skin: Negative Psychiatric: Negative Endocrine: No heat or cold intolerance. No recent weight gain. Genitourinary: No dysuria or hematuria. All other 14 point ROS negative except the above Past Medical History Past Medical History: Diabetes Mellitus Additional Past Medical History / Comment(s): IDDM type II diagnosed 2009 History of Any Multi-Drug Resistant Organisms: None Reported Past Surgical History: No Surgical Hx Reported Smoking Status: Never smoker - Past Family History Mother Family Medical History: Hyperlipidemia Additional Family Medical History / Comment(s): Elevated heart rate, RLS. Father Family Medical History: Coronary Artery Disease (CAD), Myocardial Infarction ([place] ) Additional Family Medical History / Comment(s): Father had a [place] at the age of 50 yrs and has 2 coronary stents. Medications and Allergies Home Medications Medication Instructions Recorded Confirmed Type Insulin Aspart [NovoLOG] 5 unit SQ AC-TID 06/03/14 06/01/18 History Insulin Glargine [Lantus] 12 unit SQ HS 06/03/14 06/01/18 History Fluticasone Propionate [Flonase 1 - 2 spray EA NOSTRIL DAILY 5 05/30/18 Rx Allergy Relief] Days ml Allergies Allergy/AdvReac Type Severity Reaction Status Date / Time No Known Allergies Allergy Verified 06/01/18 08:18 Physical Exam Vitals: Vital Signs Temp Pulse Pulse Pulse Pulse Resp BP 06/01/18 12:09 65 18 123/86 06/01/18 09:47 56 L 50 L 47 L 06/01/18 09:13 47 L 18 139/85 06/01/18 07:49 98 F 20 L 53 H 131/81 BP BP BP Pulse Ox 06/01/18 12:09 97 06/01/18 09:47 132/81 142/80 135/83 06/01/18 09:13 97 06/01/18 07:49 100 Intake and Output 05/31/18 06/01/18 06/01/18 22:59 06:59 14:59 Other: Weight 81.193 kg PHYSICAL EXAMINATION: Patient is lying in the bed comfortably, no acute distress, awake alert and oriented.. HEENT: Normocephalic. Neck is supple. Pupils reactive. Nostrils clear. Oral cavity is moist. Ears reveal no drainage. Neck reveals no JVD, carotid bruits, or thyromegaly. CHEST EXAMINATION: Trachea is central. Symmetrical expansion. Lung hodges clear to auscultation and percussion. CARDIAC: Normal S1, S2 with no gallops. No murmurs ABDOMEN: Soft. Bowel sounds normal. No organomegaly. No abdominal bruits. Extremities: reveal no edema. No clubbing or cyanosis Neurologically awake, alert, oriented x3 with well-coordinated movements. No focal deficits noted Skin: No rash or skin lesions. Psychiatric: Coperative. Nonsuicidal Musculoskeletal: No joint swelling or deformity. Normal range of motion. Results CBC & Chem 7: 06/01/18 08:27 06/01/18 08:27 Labs: Abnormal Lab Results - Last 24 Hours (Table) 07/10/18 07/10/18 07/10/18 Range/Units 08:07 08:27 12:01 Carbon Dioxide 32 H (22-30) mmol/L Glucose 199 H (74-99) mg/dL POC Glucose (mg/dL) 206 H 184 H (75-99) mg/dL AST 16 L (17-59) U/L Total Protein 6.1 L (6.3-8.2) g/dL Thrombosis Risk Factor Assmnt - DVT/VTE Prophylaxis DVT/VTE Prophylaxis: Pharmacologic Prophylaxis ordered - Choose All That Apply Any of the Below Risk Factors Present?: No Other Risk Factors: No Other congenital or acquired thrombophilia - If yes, enter type in comment: No Thrombosis Risk Factor Assessment Level: Very Low Risk Assessment and Plan Assessment: Dizziness likely due to vertigo and ear fullness Sinus bradycardia Chest pain likely pleuritic. D-dimer was ordered to rule out thrombosis. Diabetes type 1 Recent sinus problems Plan: Patient will be continued on telemetry monitoring. Initial EKG and troponins are negative. Patient will be started on meclizine 12.5 mg twice a day when necessary for dizziness. Will follow-up d-dimer level and also check UDS. Continue with home insulin dose and sliding scale. Cardiology was consulted. Further recommendations based on the clinical course. Time with Patient: Greater than 30
--- NOTE | 2018-06-01 15:02 | P.CRDCN ---
History of Present Illness History of present illness: Mr. Serna is a pleasant 32-year-old male past medical history significant for diabetes mellitus on insulin. We have been asked to see him in consultation for persistent dizziness. He states this is his third time coming to the hospital for similar symptoms in the last week. He states he feels light headed with any movement or position changes with pressure in his face. He feels like he has water in his ears. Today while he was at work he got up to walk around looking for boxes and became acutely light headed with blurred vision. 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 He then started having some pain in his chest on the right thoracic region that was heavy and sharp at times. The pain was intermittent with no specific aggravating factors and occurred approximately 5 times over the course of a few minutes. He denies radiation to the arm, back, neck or jaw. He did notice his heart was racing but felt regular just fast. He denies shortness of breath, nausea, vomiting or diaphoresis. CT brain is negative for an acute intracranial process. CT sinus normal. Irthostatic vital signs obtained were negative for hypotensive changes. He was recently started on flonase after leaving the ED 2 days ago and has noticed no change in his symptoms. EKG reveals sinus bradycardia heart rate 50. Chest x-ray negative for an acute cardiopulmonary process. Laboratory data reviewed, hemoglobin 13.2, platelets 24, sodium 141, potassium 3.9, creatinine 0.69, cardiac enzymes negative 1. Review of Systems At the time of my exam: CONSTITUTIONAL: Denies fever. Denies chills. EYES: Denies blurred vision. Denies vision changes. Denies eye pain. EARS, NOSE, MOUTH & THROAT: Denies headache. Denies sore throat. Denies ear pain. CARDIOVASCULAR: Denies chest pain. Denies shortness of breath. Denies orthopnea. Denies PND. Denies palpitations. RESPIRATORY: Denies cough. GASTROINTESTINAL: Denies abdominal pain. Denies diarrhea. Denies constipation. Denies nausea. Denies vomiting. MUSCULOSKELETAL: Denies myalgias. INTEGUMENTARY: Denies pruitis. Denies rash. NEUROLOGIC: Denies numbness. Denies tingling. Denies weakness. Complains of light headed with movement/position changes. PSYCHIATRIC: Denies anxiety. Denies depression. ENDOCRINE: Denies fatigue. Denies weight change. Denies polydipsia. Denies polyurina. GENITOURINARY: Denies burning, hematuria or urgency with micturation. HEMATOLOGIC: Denies history of anemia. Denies bleeding. Past Medical History Past Medical History: Diabetes Mellitus Additional Past Medical History / Comment(s): IDDM type II diagnosed 2009 History of Any Multi-Drug Resistant Organisms: None Reported Past Surgical History: No Surgical Hx Reported Smoking Status: Never smoker - Past Family History Mother Family Medical History: Hyperlipidemia Additional Family Medical History / Comment(s): Elevated heart rate, RLS. Father Family Medical History: Coronary Artery Disease (CAD), Myocardial Infarction ([place] ) Additional Family Medical History / Comment(s): Father had a [place] at the age of 50 yrs and has 2 coronary stents. Medications and Allergies Home Medications Medication Instructions Recorded Confirmed Type Insulin Aspart [NovoLOG] 5 unit SQ AC-TID 06/03/14 06/01/18 History Insulin Glargine [Lantus] 12 unit SQ HS 06/03/14 06/01/18 History Fluticasone Propionate [Flonase 1 - 2 spray EA NOSTRIL DAILY 5 05/30/18 Rx Allergy Relief] Days ml Allergies Allergy/AdvReac Type Severity Reaction Status Date / Time No Known Allergies Allergy Verified 06/01/18 08:18 Physical Exam Vitals: Vital Signs Temp Pulse Pulse Pulse Pulse Resp BP 06/01/18 13:11 98 F 57 L 18 122/60 06/01/18 12:09 65 18 123/86 06/01/18 09:47 56 L 50 L 47 L 06/01/18 09:13 47 L 18 139/85 06/01/18 07:49 98 F 20 L 53 H 131/81 BP BP BP Pulse Ox 06/01/18 13:11 99 06/01/18 12:09 97 06/01/18 09:47 132/81 142/80 135/83 06/01/18 09:13 97 06/01/18 07:49 100 Intake and Output 05/31/18 06/01/18 06/01/18 22:59 06:59 14:59 Other: Weight 81.193 kg Blood pressure 122/60 heart rate 57 afebrile maintaining oxygen saturation on room air GENERAL: This is a 32-year-old male in no apparent distress at the time of my examination. HEENT: Head is atraumatic, normocephalic. Pupils are equal, round. Sclerae anicteric. Conjunctivae are clear. Mucous membranes of the mouth are moist. Neck is supple. There is no jugular venous distention. No carotid bruit is heard. LUNGS: Clear to auscultation no wheezes, rales or rhonchi. No chest wall tenderness is noted on palpation or with deep breathing. HEART: Regular rate and rhythm without murmurs, rubs or gallops. S1 and S2 heard. ABDOMEN: Soft, nontender. Bowel sounds are heard. No organomegaly noted. EXTREMITIES: No evidence of peripheral edema and no calf tenderness noted. VASCULAR: Radial and dorsalis pedis pulses palpated, no evidence of clubbing. NEUROLOGIC: Patient is awake, alert and oriented x3. Results 06/01/18 08:27 06/01/18 08:27 Cardiac Enzymes 06/01/18 06/01/18 Range/Units 08:27 08:27 AST 16 L (17-59) U/L Troponin I <0.012 (0.000-0.034) ng/mL CBC 06/01/18 Range/Units 08:27 WBC 4.7 (3.8-10.6) k/uL RBC 4.62 (4.30-5.90) m/uL Hgb 13.2 (13.0-17.5) gm/dL Hct 39.9 (39.0-53.0) % Plt Count 204 (150-450) k/uL Comprehensive Metabolic Panel 06/01/18 Range/Units 08:27 Sodium 141 (137-145) mmol/L Potassium 3.9 (3.5-5.1) mmol/L Chloride 102 (98-107) mmol/L Carbon Dioxide 32 H (22-30) mmol/L BUN 16 (9-20) mg/dL Creatinine 0.69 (0.66-1.25) mg/dL Glucose 199 H (74-99) mg/dL Calcium 9.2 (8.4-10.2) mg/dL AST 16 L (17-59) U/L ALT 29 (21-72) U/L Alkaline Phosphatase 58 (38-126) U/L Total Protein 6.1 L (6.3-8.2) g/dL Albumin 3.7 (3.5-5.0) g/dL Current Medications Generic Name Dose Route Start Last Admin Trade Name Freq PRN Reason Stop Dose Admin Acetaminophen 650 mg 06/01/18 10:29 Tylenol Tab PO Q4HR PRN Pain Aspirin 325 mg 06/02/18 09:00 Aspirin PO DAILY ROBY Fluticasone Propionate 2 spray 06/02/18 09:00 Flonase Nasal [place] EA NOSTRIL DAILY ROBY Insulin Aspart 5 unit 06/01/18 12:30 06/01/18 12:03 Novolog SQ Not Given AC-TID ROBY Insulin Detemir 12 unit 06/01/18 21:00 Levemir SQ HS ROBY Meclizine HCl 12.5 mg 06/01/18 13:35 Antivert PO BID PRN Vertigo Morphine Sulfate 2 mg 06/01/18 10:29 Morphine Sulfate (Inj) IVP Q5M PRN Chest Pain Nitroglycerin 0.4 mg 06/01/18 10:29 Nitrostat SUBLINGUAL Q5M PRN Chest Pain Intake and Output 05/31/18 06/01/18 06/01/18 22:59 06:59 14:59 Other: Weight 81.193 kg Patient Weight 06/02/18 06:59 Weight 81.193 kg 06/01/18 08:27 06/01/18 08:27 Assessment and Plan Assessment: ASSESSMENT Dizzy with vision changes with position changes. Diabetes mellitus, maintained on insulin. PLAN Obtain 2D echocardiogram and doppler study to assess cardiac structure and function. Repeat EKG now. Agree with d-dimer. Tilt table test tomorrow. Continue to obtain serial cardiac enzymes to rule out an acute coronary event. Continue to monitor for an acute arrhythmia. Thank you kindly for this consultation. We will continue to follow. Nurse Practitioner note has been reviewed, I agree with a documented findings and plan of care. Patient was seen and examined.
[2018-06-01 15:29] LABS: Creatine Kinase 54 U/L (55-170)
[2018-06-01 15:40] LABS: Creatine Kinase MB <0.2 ng/mL (0.0-2.4); Troponin I <0.012 ng/mL (0.000-0.034)
[2018-06-01 16:12] VITALS: RESP 16
[2018-06-01 17:36] LABS: Glucose,Whole Blood 130 mg/dL (75-99)
[2018-06-01] MEDS: SODIUM CHLORIDE 0.9% 1,000 ML IV SCH (17:55)
[2018-06-01 20:35] LABS: Glucose,Whole Blood 95 mg/dL (75-99)
[2018-06-01] MEDS: INSULIN DETEMIR 100 UNIT/ML 10 ML VIAL SQ SCH (21:07)
[2018-06-01] MEDS: MECLIZINE 12.5 MG TAB PO PRN (21:07)
--- NOTE | 2018-06-01 21:44 | CT ---
EXAMINATION TYPE: CT angio chest with 3-D reconstruction renderings DATE OF EXAM: 06/01/2018 5:16 PM COMPARISON: None. HISTORY: R/O PE CT DLP: 285.80 mGycm Automated exposure control for dose reduction was used. CONTRAST: CTA scan of the thorax is performed with IV Contrast, patient injected with 80 mL of Isovue 370, pulmonary embolism protocol. 3-D reconstruction renderings. FINDINGS: LUNGS: The lungs are grossly clear, there is no concerning parenchymal mass or nodule identified. T here is no pleural effusion or pneumothorax seen. The tracheobronchial tree is patent. MEDIASTINUM: There is satisfactory enhancement of the pulmonary artery and its branches, there is no CT evidence for pulmonary embolism. There are no greater than 1 cm hilar or mediastinal lymph nodes. No pericardial effusion is seen. OTHER: No additional significant abnormality is seen. IMPRESSION: NEGATIVE FOR PULMONARY EMBOLISM; NO ACUTE RADIOGRAPHIC PROCESS.
[2018-06-01 21:54] LABS: Creatine Kinase 53 U/L (55-170)
[2018-06-01 22:08] LABS: Creatine Kinase MB <0.2 ng/mL (0.0-2.4); Troponin I <0.012 ng/mL (0.000-0.034)
[2018-06-01 22:19] LABS: Cholesterol 143 mg/dL (<200); HDL Cholesterol 44 mg/dL (40-60); Triglycerides 74 mg/dL (<150)
[2018-06-01 22:20] LABS: LDL Cholesterol,Calculated 84 mg/dL (0-99)
[2018-06-02 06:50] LABS: Glucose,Whole Blood 149 mg/dL (75-99)
[2018-06-02] MEDS: MECLIZINE 12.5 MG TAB PO PRN ×2 (07:57→20:50)
[2018-06-02] MEDS: FLUTICASONE 50MCG/SPRAY NASAL 16GM EA NOSTRIL SCH (07:58)
[2018-06-02] MEDS: INSULIN ASPART 100 UNIT/ML 1 ML 10 ML VIAL SQ SCH ×3 (08:21→17:43)
[2018-06-02] MEDS ORDERED: ASPIRIN 325 MG TAB PO SCH (09:00)
--- NOTE | 2018-06-02 10:42 | ECHOF ---
Referral Reason:dizziness MEASUREMENTS -------- HEIGHT: 177.8 cm WEIGHT: 81.2 kg BP: 122/60 RVIDd: 2.1 cm (< 3.3) IVSd: 0.8 cm (0.6 - 1.1) LVIDd: 4.6 cm (3.9 - 5.3) LVPWd: 0.8 cm (0.6 - 1.1) IVSs: 1.4 cm LVIDs: 2.7 cm LVPWs: 1.4 cm LAESV Index (A-L): 19.86 ml/m Ao Diam: 3.0 cm (2.0 - 3.7) AV Cusp: 2.0 cm (1.5 - 2.6) LA Diam: 3.3 cm (2.7 - 3.8) MV E Vijay: 1.04 m/s MV DecT: 270 ms MV A Vijay: 0.49 m/s MV E/A Ratio: 2.11 RAP: 5.00 mmHg RVSP: 24.09 mmHg MV EF SLOPE: 164.89 mm/s (70 - 150) MV EXCURSION: 2.09 cm (> 18.000) FINDINGS -------- Sinus rhythm. This was a technically good study. The left ventricular size is normal. Left ventricular wall thickness is normal. Overall left vent ricular systolic function is normal with, an EF between 55 - 60 %. The right ventricle is normal in size and function. Normal LA size by volume 22+/-6 ml/m2. The right atrium is normal in size. Aortic valve is trileaflet and is mildly thickened. There is no evidence of aortic regurgitation. There is no evidence of aortic stenosis. The mitral valve leaflets are mildly thickened. There is trace mitral regurgitation. Trace tricuspid regurgitation present. Right ventricular systolic pressure is normal at < 35 mmHg. There is no evidence of pulmonary hypertension. Trace/mild (physiologic) pulmonic regurgitation. The aortic root size is normal. Normal inferior vena cava with normal inspiratory collapse consistent with estimated right atrial pre ssure of 5 mmHg. There is no pericardial effusion. CONCLUSIONS -------- 1. Sinus rhythm. 2. This was a technically good study. 3. The left ventricular size is normal. 4. Left ventricular wall thickness is normal. 5. Overall left ventricular systolic function is normal with, an EF between 55 - 60 %. 6. Normal LA size by volume 22+/-6 ml/m2. 7. Aortic valve is trileaflet and is mildly thickened. 8. The mitral valve leaflets are mildly thickened. 9. There is trace mitral regurgitation. 10. Trace tricuspid regurgitation present. 11. Right ventricular systolic pressure is normal at < 35 mmHg. 12. There is no evidence of pulmonary hypertension. 13. Trace/mild (physiologic) pulmonic regurgitation. 14. The aortic root size is normal. 15. There is no pericardial effusion. NETWORK IN[employer]RA[employer]URE ARCHITECT: Jerry Cobos RDCS
--- NOTE | 2018-06-02 11:54 | P.PN ---
Subjective Mr. Serna is seen and examined resting comfortably in bed in no acute distress. He continues to complain of ongoing dizziness, congestion and generalized weakness. Telemetry tracings reveal significant bradycardia with resting heart rate as low as 40. Tilt table study test to be performed today currently pending. Laboratory data reviewed, cardiac enzymes negative 3, elevated d-dimer 0.85 CT angiogram performed negative for pulmonary embolism. Blood pressure 125/75 heart rate 72 afebrile maintaining oxygen saturation on room air. Echocardiogram performed yesterday reveals preserved left ventricular systolic function with ejection fraction 55-60%. Objective - Vital Signs Vital signs: Vital Signs Temp 98.2 F 06/02/18 11:19 Pulse 72 06/02/18 11:19 Resp 16 06/02/18 11:19 BP 125/75 06/02/18 11:19 Pulse Ox 100 06/02/18 11:19 Intake & Output 06/01/18 06/02/18 06/02/18 18:59 06:59 18:59 Output Total 500 Balance -500 Weight 80.2 kg Output: Urine 500 Other: Voiding Method Toilet Toilet Toilet # Voids 1 - Exam GENERAL: Well-appearing, well-nourished and in no acute distress. NECK: Supple without JVD or thyromegaly. LUNGS: Breath sounds clear to auscultation bilaterally. Respiration equal and unlabored. No wheezes, rales or rhonchi. HEART: Regular rate and rhythm without murmurs, rubs or gallops. S1 and S2 heard. EXTREMITIES: Normal range of motion, no edema. No clubbing or cyanosis. Peripheral pulses intact. - Labs CBC & Chem 7: 06/01/18 08:27 06/01/18 08:27 Labs: Abnormal Lab Results - Last 24 Hours (Table) 06/01/18 06/01/18 06/01/18 Range/Units 12:01 14:23 14:23 D-Dimer 0.85 H (<0.60) mg/L FEU POC Glucose (mg/dL) 184 H (75-99) mg/dL Total Creatine Kinase 54 L (55-170) U/L 06/01/18 06/01/18 06/02/18 Range/Units 17:28 20:56 06:46 D-Dimer (<0.60) mg/L FEU POC Glucose (mg/dL) 130 H 149 H (75-99) mg/dL Total Creatine Kinase 53 L (55-170) U/L Assessment and Plan Assessment: ASSESSMENT Dizzy with vision changes with position changes. Diabetes mellitus, maintained on insulin. Bradycardia, may be normal component in young active male. PLAN Proceed with tilt table study. If normal he should have a neurology evaluation. An acute coronary event has been ruled out. Upon discharge we will set up for a holter monitor through our office. Will need outpatient stress testing to assess heart rate response to exercise. Nurse Practitioner note has been reviewed, I agree with a documented findings and plan of care. Patient was seen and examined.
[2018-06-02 12:34] LABS: Glucose,Whole Blood 256 mg/dL (75-99)
[2018-06-02 13:40] LABS: Urine Alcohol Negative (Negative); Urine Barbiturate Negative (Negative); Urine Cocaine Negative (Negative); Urine Methadone Negative (Negative); Urine Opiates Negative (Negative); Urine Phencyclidine Negative (Negative)
[2018-06-02] MEDS ORDERED: SODIUM CHLORIDE 0.9% 500 ML IV ONE (13:50)
[2018-06-02 17:23] LABS: Glucose,Whole Blood 276 mg/dL (75-99)
[2018-06-02] MEDS: SODIUM CHLORIDE 0.9% 1,000 ML IV SCH (17:29)
--- NOTE | 2018-06-02 18:41 | P.CNNES ---
History of Present Illness Consult date: 06/02/18 History of Present Illness: The patient is a 32-year-old right-handed white male who states that his problem began one week ago after going swimming. He developed a sinus infection. He states he had felt some pressure in his sinuses and congestion as well as sinus headache. He states that he went to [facility] emergency room last week and was given Sudafed. He is symptoms did not resolve and he came to [facility] emergency room last and was given a nasal spray Flonase. This also did not help. He continued to go to work but yesterday morning at work he felt lightheadedness and he nearly passed out. He has been experiencing lightheadedness for about one week. He denied any vertigo. He is describes lightheadedness as a sense of feeling as if he is going to pass out. When he arrived in the emergency room was EKG showed bradycardia with a heart rate of 50. He states he did not pass out or lose consciousness. He states that he is also had a dry cough for 1 week. He did experience chest pain also yesterday when he was at work. Review of Systems Constitutional: Denies chills, Denies fever Eyes: denies blurred vision, denies pain Cardiovascular: Denies chest pain, Denies shortness of breath Respiratory: Denies cough Musculoskeletal: Denies myalgias Neurological: Denies numbness, Denies weakness Psychiatric: Denies anxiety, Denies depression Past Medical History Past Medical History: Diabetes Mellitus Additional Past Medical History / Comment(s): IDDM type II diagnosed 2009 History of Any Multi-Drug Resistant Organisms: None Reported Past Surgical History: No Surgical Hx Reported Smoking Status: Never smoker - Past Family History Mother Family Medical History: Hyperlipidemia Additional Family Medical History / Comment(s): Elevated heart rate, RLS. Father Family Medical History: Coronary Artery Disease (CAD), Myocardial Infarction ([place] ) Additional Family Medical History / Comment(s): Father had a [place] at the age of 50 yrs and has 2 coronary stents. Medications and Allergies Home Medications Medication Instructions Recorded Confirmed Type Insulin Aspart [NovoLOG] 5 unit SQ AC-TID 06/03/14 06/01/18 History Insulin Glargine [Lantus] 12 unit SQ HS 06/03/14 06/01/18 History Fluticasone Propionate [Flonase 1 - 2 spray EA NOSTRIL DAILY 5 05/30/18 Rx Allergy Relief] Days ml Allergies Allergy/AdvReac Type Severity Reaction Status Date / Time No Known Allergies Allergy Verified 06/01/18 08:18 Physical Examination - Vital Signs Vital Signs: Vital Signs Temp Pulse Resp BP Pulse Ox 06/02/18 16:00 16 06/02/18 15:10 98 F 53 L 16 119/78 100 06/02/18 11:19 98.2 F 72 16 125/75 100 06/02/18 07:07 97.4 F L 46 L 16 120/74 99 06/02/18 04:00 97.5 F L 56 L 16 116/71 99 06/01/18 23:01 16 06/01/18 22:58 98.3 F 72 16 117/70 100 06/01/18 20:00 16 06/01/18 19:47 98.3 F 70 16 127/79 99 Intake and Output 06/02/18 06/02/18 06/02/18 06:59 14:59 22:59 Intake Total 240 Balance 240 Intake: Oral 240 Other: Voiding Method Toilet Toilet Toilet # Voids 1 - Constitutional General appearance: cooperative, thin - EENT EENT: PERRL, hearing intact, vision intact - Respiratory Respiratory: lungs clear - Cardiovascular Cardiovascular: regular rate, normal S1, normal S2 - Integumentary Integumentary: normal - Neurologic Mental status: He was awake alert and oriented 3. Speech is fluent there is no a aphasia or dysarthria next Cranial nerves II through XII are grossly intact next Motor examination 5 out of 5 throughout Sensory examination intact to light touch next Deep tendon reflexes were 2+ and symmetric Coronation's finger to nose supination intact Gait was not tested Results - Laboratory Findings CBC and BMP: 06/01/18 08:27 06/01/18 08:27 Abnormal Lab Findings: Abnormal Labs 06/01/18 06/01/18 06/01/18 08:07 08:27 12:01 D-Dimer Carbon Dioxide 32 H Glucose 199 H POC Glucose (mg/dL) 206 H 184 H AST 16 L Total Creatine Kinase Total Protein 6.1 L 06/01/18 06/01/18 06/01/18 14:23 14:23 17:28 D-Dimer 0.85 H Carbon Dioxide Glucose POC Glucose (mg/dL) 130 H AST Total Creatine Kinase 54 L Total Protein 06/01/18 06/02/18 06/02/18 20:56 06:46 12:25 D-Dimer Carbon Dioxide Glucose POC Glucose (mg/dL) 149 H 256 H AST Total Creatine Kinase 53 L Total Protein 06/02/18 17:20 D-Dimer Carbon Dioxide Glucose POC Glucose (mg/dL) 276 H AST Total Creatine Kinase Total Protein Assessment and Plan (1) Pre-syncope Current Visit: Yes Status: Acute SNOMED Code(s): 319296225 (2) Acute sinusitis Current Visit: No Status: Acute SNOMED Code(s): 20110961 (3) Bradycardia Current Visit: Yes Status: Acute SNOMED Code(s): 58908452 Plan: The patient is a 32-year-old man who developed sinus infection and cough after swimming 1 week ago. He has been feeling a lightheadedness since that time. He is admitted to the hospital with chest pain, bradycardia, and lightheadedness. The patient may have pre-syncope secondary to bradycardia. The patient is undergoing cardiac evaluation. He has had a CT of the brain which was unremarkable. Recommend carotid ultrasound.
[2018-06-02] MEDS: INSULIN DETEMIR 100 UNIT/ML 10 ML VIAL SQ SCH (20:50)
[2018-06-02 20:54] LABS: Glucose,Whole Blood 262 mg/dL (75-99)
[2018-06-03 06:43] LABS: Glucose,Whole Blood 184 mg/dL (75-99)
[2018-06-03] MEDS: INSULIN ASPART 100 UNIT/ML 1 ML 10 ML VIAL SQ SCH ×3 (07:50→17:54)
--- NOTE | 2018-06-03 10:17 | CE ---
CARDIAC ELECTROPHYSIOLOGY REPORT This is a 32-year-old, male patient who presented with constant dizziness and sensation of fogginess in the head. His resting heart rate was in the mid 40s while lying down. His 12-lead ECG shows sinus rhythm with early repolarization abnormality (normal variant). There was normal [place] intervals, normal QT interval. No epsilon waves. No delta waves. Normal ST segments other than early repolarization abnormality. He underwent a tilt table test per protocol. Baseline blood pressure 131/84 mmHg, baseline heart rate 50 beats per minute. Patient is tilted upright at an angle of 70 degrees per protocol: He complained of lightheadedness throughout the procedure and his blood pressure was in the normal range. His heart rates ranged from 57 to 90 beats per minute (normal heart rates). He was laid supine at the end of procedure and in the supine position, his heart rate was 49 beats per minute. IMPRESSION: Patient complained of constant dizziness during the tilt-table test with a normal heart rate and blood pressure response to upright tilting. MMODL / IJN: [id number] /
[2018-06-03] MEDS: FLUTICASONE 50MCG/SPRAY NASAL 16GM EA NOSTRIL SCH (10:32)
[2018-06-03] MEDS: MECLIZINE 12.5 MG TAB PO PRN (10:32)
--- NOTE | 2018-06-03 11:09 | US ---
EXAMINATION TYPE: US carotid duplex BILAT DATE OF EXAM: 06/03/2018 COMPARISON: NONE CLINICAL HISTORY: Presyncope. headaches, dizziness, no h/o stroke EXAM MEASUREMENTS: RIGHT: Peak Systolic Velocity (PSV) cm/sec ----- Right CCA: 88.6 ----- Right ICA: 85.2 ----- Right ECA: 82.6 ICA/CCA ratio: 1.0 RIGHT: End Diastole cm/sec ----- Right CCA: 20.4 ----- Right ICA: 26.7 ----- Right ECA: 7.5 LEFT: Peak Systolic Velocity (PSV) cm/sec ----- Left CCA: 91.3 ----- Left ICA: 79.8 ----- Left ECA: 85.3 ICA/CCA ratio: 0.9 LEFT: End Diastole cm/sec ----- Left CCA: 20.6 ----- Left ICA: 27.0 ----- Left ECA: 10.6 VERTEBRALS (direction of flow): Right Vertebral: Antegrade Left Vertebral: Antegrade Rhythm: Normal Minimal homogeneous plaque on grayscale images. IMPRESSION: No hemodynamically significant stenosis is seen in either internal carotid artery.
[2018-06-03 12:25] LABS: Glucose,Whole Blood 146 mg/dL (75-99)
--- NOTE | 2018-06-03 12:56 | P.PN ---
Subjective Mr. Serna is seen and examined resting comfortably in bed in no acute distress. He continues to complain of ongoing dizziness, congestion and generalized weakness. Telemetry tracings reveal significant bradycardia with resting heart rate as low as 40. Tilt table study test to be performed today currently pending. Laboratory data reviewed, cardiac enzymes negative 3, elevated d-dimer 0.85 CT angiogram performed negative for pulmonary embolism. Blood pressure 125/75 heart rate 72 afebrile maintaining oxygen saturation on room air. Echocardiogram performed yesterday reveals preserved left ventricular systolic function with ejection fraction 55-60%. 06/03/2018 Tilt table study performed yesterday was negative. He continues to complains of dizziness at rest or with exertion despite what the heart rate is. Exercise stress test this morning was performed. There was no EKG evidence of ischemia and he achieved a heart rate of 155. He had symptoms of dizziness at this heart rate. Blood pressure 122/80 heart rate 62 afebrile. Objective - Vital Signs Vital signs: Vital Signs Temp 98.4 F 06/03/18 11:50 Pulse 62 06/03/18 11:50 Resp 16 06/03/18 11:50 BP 122/80 06/03/18 11:50 Pulse Ox 100 06/03/18 11:50 Intake & Output 06/02/18 06/03/18 06/03/18 18:59 06:59 18:59 Intake Total 240 Balance 240 Weight 79.832 kg Intake: Oral 240 Other: Voiding Method Toilet Toilet Toilet - Exam GENERAL: Well-appearing, well-nourished and in no acute distress. NECK: Supple without JVD or thyromegaly. LUNGS: Breath sounds clear to auscultation bilaterally. Respiration equal and unlabored. No wheezes, rales or rhonchi. HEART: Regular rate and rhythm without murmurs, rubs or gallops. S1 and S2 heard. EXTREMITIES: Normal range of motion, no edema. No clubbing or cyanosis. Peripheral pulses intact. - Labs CBC & Chem 7: 06/01/18 08:27 06/01/18 08:27 Labs: Abnormal Lab Results - Last 24 Hours (Table) 06/02/18 06/02/18 06/03/18 Range/Units 17:20 20:51 06:40 POC Glucose (mg/dL) 276 H 262 H 184 H (75-99) mg/dL 06/03/18 Range/Units 12:19 POC Glucose (mg/dL) 146 H (75-99) mg/dL Assessment and Plan Assessment: ASSESSMENT Dizzy with vision changes with position changes. Diabetes mellitus, maintained on insulin. Bradycardia, may be normal component in young active male. PLAN Bradycardia is normal variant, not causing his dizziness. Stable from a cardiac perspective. He can be discharged with a 24-hour Holter monitor. Follow up with Dr. Martinez in 2-3 weeks. Nurse Practitioner note has been reviewed, I agree with a documented findings and plan of care. Patient was seen and examined.
--- NOTE | 2018-06-03 14:08 | P.PN ---
Subjective Principal diagnosis: 32-year-old male patient who presented with dizziness and fuzziness in the head. His resting heart rates are from 45-50 beats a minute sinus rhythm/sinus bradycardia but with standing up and with little activity his heart rates are usually in the 60s. He underwent an exercise stress test and he demonstrated good exercise capacity as well as chronotropic capacity. His 2-D echo showed preserved LV size and systolic function. TSH is normal. His dizziness does not appear to be cardiac and certainly cannot be prescribed to the resting heart rates of between 45-50 bpm. He remained dizzy and fuzziness head even during his stress test while his heart rates were above 100 beats a minute PC for dictation [place] practitioner Objective - Vital Signs Vital signs: Vital Signs Temp 98.4 F 06/03/18 11:50 Pulse 62 06/03/18 11:50 Resp 16 06/03/18 11:50 BP 122/80 06/03/18 11:50 Pulse Ox 100 06/03/18 11:50 Intake & Output 06/02/18 06/03/18 06/03/18 18:59 06:59 18:59 Intake Total 240 240 Balance 240 240 Weight 79.832 kg Intake: Oral 240 240 Other: Voiding Method Toilet Toilet Toilet - Labs CBC & Chem 7: 06/01/18 08:27 06/01/18 08:27 Labs: Abnormal Lab Results - Last 24 Hours (Table) 06/02/18 06/02/18 06/03/18 Range/Units 17:20 20:51 06:40 POC Glucose (mg/dL) 276 H 262 H 184 H (75-99) mg/dL 06/03/18 Range/Units 12:19 POC Glucose (mg/dL) 146 H (75-99) mg/dL
--- NOTE | 2018-06-03 15:15 | EST ---
EXERCISE STRESS AGE: 32 SEX: M HT: 70" WT: 179 PROTOCOL: Malcolm Stress Test STAGE: 4 DURATION OF EXERCISE: 11:03 HEART RATE REST: 70 BLOOD PRESSURE REST: 117/69 MAXIMUM HEART RATE ACHIEVED: 154 MAXIMUM BLOOD PRESSURE: 163/57 85% MPHR: 159 100% MPHR: 187 METS: 12.1 INDICATIONS: Chest pain, Dizziness. CLINICAL INFORMATION: Anshu Serna is a 32-year-old male patient who presented with dizziness and chest pain. He underwent an exercise stress test. Baseline heart rate 70 beats per minute. Baseline blood pressure 117/69 mmHg. Baseline 12-lead ECG shows sinus rhythm with early repolarization abnormality. Patient exercised on a Malcolm protocol for 11 minute 3 seconds achieving a peak heart rate of 154 beats per minute. Normal blood pressure response to exercise. He complained of lightheadedness throughout the test at every stage and even into recovery. No chest pain. There is no ECG evidence for ischemia. No arrhythmias were noted. IMPRESSION: 1. Good exercise capacity. Normal heart rate response to exercise with adequate chronotropic capacity. Normal blood pressure response to exercise. No ECG evidence for ischemia. No arrhythmias. 2. The patient's lightheadedness does not correspond to patient's heart rhythm or blood pressure. Please look for noncardiac causes of dizziness and fuzziness in the head. MMODL / IJN: [id number] /
[2018-06-03 17:13] LABS: Glucose,Whole Blood 176 mg/dL (75-99)
[2018-06-03] MEDS: SODIUM CHLORIDE 0.9% 1,000 ML IV SCH (17:33)
--- NOTE | 2018-06-03 19:18 | EEG ---
ELECTROENCEPHALOGRAM REPORT DATE OF EE06/03/2018. REFERRING PHYSICIAN: Dr. Dalal. CONSULTING AND INTERPRETING PHYSICIAN: Dr. Musa Jacobo. INDICATION FOR EXAMINATION: This patient is a 32-year-old male being evaluated for near syncope and chest pain. CT scan of the brain was negative. AGE: 32. EEG FINDINGS: A routine 21 channel awake digital EEG recording was accomplished utilizing the 10-20 international system with bipolar and referential montages. The background activity in the most alert resting state consists of a low to medium amplitude, fairly well- developed and well-sustained 7-8 Hz activity over the posterior head regions. This posterior rhythm attenuates to eye opening. There is a small amount of low amplitude 18-20 Hz beta activity seen maximally over the anterior head regions. Muscle and movement artifact was observed on a few occasions during the tracing. Hyperventilation failed to add any additional information to the tracing. No further activation was noted. Photic stimulation at flash frequencies of 2-30 Hz produced a good symmetrical occipital driving response. No epileptiform discharges were seen. IMPRESSION: This EEG is normal for the patient's age. The EEG failed to reveal any focal, lateralized or epileptiform abnormalities. Clinical correlation is recommended. MMODL / IJN: [id number] /
[2018-06-03 20:18] VITALS: BP 134/82; PULSE 59; TEMP 98
--- NOTE | 2018-06-11 13:47 | HM ---
20 for a Holter monitor shows sinus mechanism heart racing from 42-120 beats a minute average 65 beats a minute. Several short runs of nonsustained atrial tachycardia, very brief. Nighttime bradycardia which is a normal finding No sustained arrhythmias MTDD
== END 2018-06-03 20:44 | disposition home or self-care (01) ==
LOC: EC 07:47 → 3OBS 10:29
PROVIDERS: ADMIT Hospitalist; ATTEND Hospitalist
DX: R42 Dizziness and giddiness (principal); H93.90 Unspecified disorder of ear, unspecified ear; R00.1 Bradycardia, unspecified; R05 Cough; J01.90 Acute sinusitis, unspecified; R55 Syncope and collapse; H53.8 Other visual disturbances; M54.6 Pain in thoracic spine; R53.1 Weakness; R07.89 Other chest pain; R79.89 Other specified abnormal findings of blood chemistry; E10.9 Type 1 diabetes mellitus without complications; Z79.4 Long term (current) use of insulin; Z79.51 Long term (current) use of inhaled steroids; Z82.49 Family history of ischemic heart disease and other diseases of the circulatory system
CPT/HCPCS: 99285 ×2; 96360 ×2; 36415; 95816; 93005; 93017; 93225; 93226; 93306; 93660; 85379; 80061; 80053; 82550; 82553; 84484; 85025; 80306; 71046; 93880; 70450; 71275; 70486; G0378 ×3; Q9967

== ENCOUNTER 2019-03-03 10:08 | Inpatient (IN) | payer OTHER ==
--- NOTE | 2019-03-03 11:05 | ED ---
Psych HPI - General Chief Complaint: Psychiatric Symptoms Stated Complaint: mental health Time Seen by Provider: 03/03/19 10:31 Source: patient, family, RN notes reviewed Mode of arrival: ambulatory Limitations: no limitations - History of Present Illness Initial Comments: 33-year-old male presents emergency Department with chief complaint of depression, hearing voices, suicidal ideation. Patient states that this has been building up for last few weeks. Patient states he cannot tolerate this time. Patient states they do not write states that he does have thoughts of hurting himself. No drug or alcohol abuse. Patient is well-controlled insulin dependent diabetic. Patient denies any physical complaints. Patient has talked her counselor past states is very expensive and did not help. - Related Data Home Medications Medication Instructions Recorded Confirmed INSULIN ASPART (NovoLOG) [NovoLOG 5 - 10 unit SQ ACHS 06/03/14 03/03/19 (formulary)] Insulin Glargine [Lantus] 12 unit SQ HS 06/03/14 03/03/19 Allergies Allergy/AdvReac Type Severity Reaction Status Date / Time No Known Allergies Allergy Verified 03/03/19 10:44 Review of Systems ROS Statement: Those systems with pertinent positive or pertinent negative responses have been documented in the HPI. ROS Other: All systems not noted in ROS Statement are negative. Past Medical History Past Medical History: Diabetes Mellitus Additional Past Medical History / Comment(s): IDDM type II diagnosed 2009 History of Any Multi-Drug Resistant Organisms: None Reported Past Surgical History: No Surgical Hx Reported Past Psychological History: No Psychological Hx Reported Smoking Status: Never smoker Past Alcohol Use History: Occasional Past Drug Use History: Marijuana - Past Family History Mother Family Medical History: Hyperlipidemia Additional Family Medical History / Comment(s): Elevated heart rate, RLS. Father Family Medical History: Coronary Artery Disease (CAD), Myocardial Infarction ([place]) Additional Family Medical History / Comment(s): Father had a MA at the age of 50 yrs and has 2 coronary stents. General Exam Limitations: no limitations General appearance: alert, in no apparent distress Head exam: Present: atraumatic, normocephalic, normal inspection Eye exam: Present: normal appearance, PERRL, EOMI. Absent: scleral icterus, conjunctival injection, periorbital swelling ENT exam: Present: normal exam, normal oropharynx, mucous membranes moist Neck exam: Present: normal inspection. Absent: tenderness, meningismus, lymphadenopathy Respiratory exam: Present: normal lung sounds bilaterally. Absent: respiratory distress, wheezes, rales, rhonchi, stridor Cardiovascular Exam: Present: regular rate, normal rhythm, normal heart sounds. Absent: systolic murmur, diastolic murmur, rubs, gallop, clicks Neurological exam: Present: alert, oriented X3, CN II-XII intact Psychiatric exam: Present: flat affect Skin exam: Present: warm, dry, intact, normal color. Absent: rash Course Vital Signs 03/03/19 10:18 Temperature 98.1 F Pulse Rate 63 Respiratory 20 Rate Blood Pressure 148/87 O2 Sat by Pulse 99 Oximetry Medical Decision Making - Medical Decision Making Patient evaluated by EPS case discussed with psychiatrist will admit for further treatment. - Lab Data Lab Results 03/03/19 Range/Units 10:50 Urine Opiates Screen Not Detected (NotDetected) Ur Oxycodone Screen Not Detected (NotDetected) Urine Methadone Screen Not Detected (NotDetected) Ur Propoxyphene Screen Not Detected (NotDetected) Ur Barbiturates Screen Not Detected (NotDetected) U Tricyclic Antidepress Not Detected (NotDetected) Ur Phencyclidine Scrn Not Detected (NotDetected) Ur Amphetamines Screen Not Detected (NotDetected) U Methamphetamines Scrn Not Detected (NotDetected) U Benzodiazepines Scrn Not Detected (NotDetected) Urine Cocaine Screen Not Detected (NotDetected) U Marijuana (THC) Screen Not Detected (NotDetected) Disposition Clinical Impression: Depression, Suicidal ideation, Psychosis Disposition: TRANSFER TO PSYCH HOSP/UNIT Referrals: Av Bain MD [Primary Care Provider] - 1-2 days
[2019-03-03 12:52] LABS: Amphetamine Screen,Urine Not Detected (NotDetected); Barbiturate Screen,Urine Not Detected (NotDetected); Benzodiazepines Screen,Urine Not Detected (NotDetected); Cocaine Screen,Urine Not Detected (NotDetected); Methadone Screen, Urine Not Detected (NotDetected); Opiate Screen,Urine Not Detected (NotDetected); Oxycodone Screen, Urine Not Detected (NotDetected); Phencyclidine Screen,Urine Not Detected (NotDetected); Tricyclic Antidepressant,Urine Not Detected (NotDetected); Urn Cannabinoid Scrn Not Detected (NotDetected)
[2019-03-03 17:13] LABS: Glucose,Whole Blood 391 mg/dL (75-99)
[2019-03-03] MEDS ORDERED: INSULIN ASPART (NovoLOG) 100 UNIT/ML VIAL SQ ONE (17:18)
[2019-03-03] MEDS ORDERED: MAG HYDROX/AL HYDROX/SIMETH 30 ML CUP PO PRN (17:46)
[2019-03-03] MEDS ORDERED: MAGNESIUM HYDROXIDE 2,400 MG/10 ML CUP PO PRN (17:46)
[2019-03-03] MEDS ORDERED: LORazepam 1 MG TAB PO PRN (17:46)
[2019-03-03] MEDS ORDERED: ACETAMINOPHEN TAB 325 MG TAB PO PRN (17:46)
[2019-03-03] MEDS ORDERED: ZIPRASIDONE 20 MG VIAL IM PRN (17:46)
[2019-03-03 18:28] VITALS: BP 137/79; PULSE 65; RESP 18; TEMP 98.2; BMI 25.8
[2019-03-03 20:01] LABS: Glucose,Whole Blood 328 mg/dL (75-99)
[2019-03-03] MEDS: INSULIN ASPART (NovoLOG) 100 UNIT/ML VIAL SQ SCH (20:46)
[2019-03-03] MEDS ORDERED: INSULIN DETEMIR (LEVEMIR) 100 UNIT/ML SYR SQ SCH (21:00)
[2019-03-04 06:57] LABS: Glucose,Whole Blood 144 mg/dL (75-99)
[2019-03-04] MEDS: INSULIN ASPART (NovoLOG) 100 UNIT/ML VIAL SQ SCH ×2 (08:42→13:09)
[2019-03-04 10:14] LABS: Basophils % (A) 0 %; Eosinophils # (A) 0.1 k/uL (0-0.7); Eosinophils % (A) 1 %; HCT 45.5 % (39.0-53.0); HGB 14.7 gm/dL (13.0-17.5); Lymphocytes # (A) 1.4 k/uL (1.0-4.8); Lymphocytes % (A) 26 %; MCH 29.1 pg (25.0-35.0); MCHC 32.3 g/dL (31.0-37.0); Mean Platelet Volume 7.4; Monocytes # (A) 0.2 k/uL (0-1.0); Monocytes % (A) 5 %; Neutrophils # (A) 3.6 k/uL (1.3-7.7); Neutrophils % (A) 67 %; Platelet Count 209 k/uL (150-450); RBC 5.06 m/uL (4.30-5.90); RDW 12.8 % (11.5-15.5); WBC 5.4 k/uL (3.8-10.6)
[2019-03-04 10:21] LABS: ALT 25 U/L (21-72); AST 17 U/L (17-59); Alkaline Phosphatase 56 U/L (38-126); Anion Gap 5 mmol/L; Bilirubin, Delta 0.2 mg/dL (0.0-0.2); Bilirubin,Unconjugated 0.7 mg/dL (0.0-1.1); Blood Urea Nitrogen 15 mg/dL (9-20); Calcium 9.6 mg/dL (8.4-10.2); Carbon Dioxide 33 mmol/L (22-30); Chloride 100 mmol/L (98-107); Cholesterol 173 mg/dL (<200); Glucose 261 mg/dL (74-99); HDL Cholesterol 58 mg/dL (40-60); LDL Cholesterol,Calculated 92 mg/dL (0-99); Potassium 4.2 mmol/L (3.5-5.1); Sodium 138 mmol/L (137-145); Total Bilirubin 0.9 mg/dL (0.2-1.3); Total Protein 6.5 g/dL (6.3-8.2); Triglycerides 115 mg/dL (<150)
[2019-03-04 12:55] LABS: Glucose,Whole Blood 245 mg/dL (75-99)
--- NOTE | 2019-03-04 15:04 | CONS ---
CONSULTATION DATE OF SERVICE: 03/04/2019 REASON FOR CONSULTATION: Advice regarding diabetes mellitus and other medical issues, requested by Psychiatry. HISTORY OF PRESENT ILLNESS: This 33-year-old gentleman with a past medical history of diabetes mellitus, history of THC, being followed by Dr. Bain in the outpatient setting, was admitted for psychiatric evaluation. There is no history of any fever, rigor or chills. No history of headache, loss of consciousness, seizures. The patient is taking a combination of Lantus and NovoLog. The blood sugars appear to be fairly controlled at home. The patient was admitted with suicidal ideations. Psychiatric evaluation is in progress. PAST MEDICAL HISTORY: 1. Diabetes mellitus, type 1. 2. History of THC. HOME MEDICATIONS: 1. Lantus 12 units subcutaneously at bedtime. 2. NovoLog 5 to 10 units before meals and at bedtime. ALLERGIES: NONE. FAMILY HISTORY: History of hyperlipidemia, history of restless legs syndrome. SOCIAL HISTORY: No history of smoking. History of THC. REVIEW OF SYSTEMS: ENT: No diminished hearing. No diminished vision. CARDIOVASCULAR SYSTEM: No angina, palpitations. RESPIRATORY SYSTEM: As mentioned earlier. GI: No nausea, vomiting. : No dysuria or retention. NERVOUS SYSTEM: No numbness, weakness. ALLERGY/IMMUNOLOGY: No asthma, hayfever. MUSCULOSKELETAL: As mentioned earlier. HEMATOLOGY/ONCOLOGY: No history of anemia. ENDOCRINE: As mentioned earlier. CONSTITUTIONAL: As mentioned earlier. DERMATOLOGY: Negative. RHEUMATOLOGY: Negative. PSYCHIATRY: As mentioned earlier. PHYSICAL EXAMINATION: Patient alert and oriented x3. Pulse is 87, blood pressure 126/78, respiration 16, temperature 98.1, pulse ox 100% on room air. HEENT: Conjunctivae normal. NECK: No jugular venous distention. CARDIOVASCULAR SYSTEM: S1, S2 muffled. RESPIRATORY SYSTEM: Breath sounds diminished at the bases. A few scattered rhonchi and crackles. ABDOMEN: Soft, non-tender. No mass palpable. LEGS: No edema. No swelling. NERVOUS SYSTEM: Higher functions as mentioned earlier. Moves all 4 limbs. No focal motor or sensory deficit. LYMPHATICS: No lymph node palpable in neck, axillae or groin. SKIN: No ulcer, rash, bleeding. JOINTS: No active deforming arthropathy. LABS: CBC within normal limits. Sodium 138, potassium 4.2, glucose 261, 245. ASSESSMENT: 1. Diabetes mellitus, type 1. 2. Depression. 3. History of tetrahydrocannabinol. RECOMMENDATIONS AND DISCUSSION: In this 33-year-old gentleman who presented with multiple medical issues, at this time I recommend to continue current medications, continue with symptomatic treatment. Otherwise, continue the rest of the home dose of medications and follow up closely with the primary physician in the outpatient setting. Insulin dosage changes may be necessary in the outpatient setting. Otherwise, hemoglobin A1c is not available. Further recommendations to follow. Thank you for letting us participate in the care of this patient. MMODL / IJN: [id number] /
[2019-03-04 20:02] LABS: Hemoglobin A1C 12.9 % (4.0-6.0)
--- NOTE | 2019-03-10 14:29 | P.HP ---
Psychiatric H&P - . H&P Date: 03/03/19 History & Physical: Allergies Allergy/AdvReac Type Severity Reaction Status Date / Time No Known Allergies Allergy Verified 03/03/19 18:18 Vital Signs Temp 98.2 F 03/03/19 18:20 Pulse 65 03/03/19 18:20 Resp 18 03/03/19 18:20 BP 137/79 03/03/19 18:20 Pulse Ox 100 03/03/19 17:48 Laboratory Last Values WBC 5.4 k/uL (3.8-10.6) 03/04/19 09:26 RBC 5.06 m/uL (4.30-5.90) 03/04/19 09:26 Hgb 14.7 gm/dL (13.0-17.5) 03/04/19 09:26 Hct 45.5 % (39.0-53.0) 03/04/19 09:26 MCV 90.0 fL (80.0-100.0) 03/04/19 09:26 MCH 29.1 pg (25.0-35.0) 03/04/19 09:26 MCHC 32.3 g/dL (31.0-37.0) 03/04/19 09:26 RDW 12.8 % (11.5-15.5) 03/04/19 09:26 Plt Count 209 k/uL (150-450) 03/04/19 09:26 Neutrophils % 67 % 03/04/19 09:26 Lymphocytes % 26 % 03/04/19 09:26 Monocytes % 5 % 03/04/19 09:26 Eosinophils % 1 % 03/04/19 09:26 Basophils % 0 % 03/04/19 09:26 Neutrophils # 3.6 k/uL (1.3-7.7) 03/04/19 09:26 Lymphocytes # 1.4 k/uL (1.0-4.8) 03/04/19 09:26 Monocytes # 0.2 k/uL (0-1.0) 03/04/19 09:26 Eosinophils # 0.1 k/uL (0-0.7) 03/04/19 09:26 Basophils # 0.0 k/uL (0-0.2) 03/04/19 09:26 Sodium 138 mmol/L (137-145) 03/04/19 09:26 Potassium 4.2 mmol/L (3.5-5.1) 03/04/19 09:26 Chloride 100 mmol/L (98-107) 03/04/19 09:26 Carbon Dioxide 33 mmol/L (22-30) H 03/04/19 09:26 Anion Gap 5 mmol/L 03/04/19 09:26 BUN 15 mg/dL (9-20) 03/04/19 09:26 Creatinine 0.70 mg/dL (0.66-1.25) 03/04/19 09:26 Est GFR (CKD-EPI)AfAm >90 (>60 ml/min/1.73 sqM) 03/04/19 09:26 Est GFR (CKD-EPI)NonAf >90 (>60 ml/min/1.73 sqM) 03/04/19 09:26 Glucose 261 mg/dL (74-99) H 03/04/19 09:26 POC Glucose (mg/dL) 245 mg/dL (75-99) H 03/04/19 12:43 POC [employer] ZACHARY Oksana Kumar 03/04/19 12:[address] Glu mg/dL 324 03/04/19 09:26 Hemoglobin A1c 12.9 % (4.0-6.0) H 03/04/19 09:26 Calcium 9.6 mg/dL (8.4-10.2) 03/04/19 09:26 Total Bilirubin 0.9 mg/dL (0.2-1.3) 03/04/19 09:26 Conjugated Bilirubin 0.0 mg/dL (0.0-0.3) 03/04/19 09:26 Unconjugated Bilirubin 0.7 mg/dL (0.0-1.1) 03/04/19 09:26 Delta Bilirubin 0.2 mg/dL (0.0-0.2) 03/04/19 09:26 AST 17 U/L (17-59) 03/04/19 09:26 ALT 25 U/L (21-72) 03/04/19 09:26 Alkaline Phosphatase 56 U/L (38-126) 03/04/19 09:26 Total Protein 6.5 g/dL (6.3-8.2) 03/04/19 09:26 Albumin 4.0 g/dL (3.5-5.0) 03/04/19 09:26 Triglycerides 115 mg/dL (<150) 03/04/19 09:26 Cholesterol 173 mg/dL (<200) 03/04/19 09:26 LDL Cholesterol, Calc 92 mg/dL (0-99) 03/04/19 09:26 HDL Cholesterol 58 mg/dL (40-60) 03/04/19 09:26 TSH 0.935 mIU/L (0.465-4.680) 03/04/19 09:26 Urine Opiates Screen Not Detected (NotDetected) 03/03/19 10:50 Ur Oxycodone Screen Not Detected (NotDetected) 03/03/19 10:50 Urine Methadone Screen Not Detected (NotDetected) 03/03/19 10:50 Ur Propoxyphene Screen Not Detected (NotDetected) 03/03/19 10:50 Ur Barbiturates Screen Not Detected (NotDetected) 03/03/19 10:50 U Tricyclic Antidepress Not Detected (NotDetected) 03/03/19 10:50 Ur Phencyclidine Scrn Not Detected (NotDetected) 03/03/19 10:50 Ur Amphetamines Screen Not Detected (NotDetected) 03/03/19 10:50 U Methamphetamines Scrn Not Detected (NotDetected) 03/03/19 10:50 U Benzodiazepines Scrn Not Detected (NotDetected) 03/03/19 10:50 Urine Cocaine Screen Not Detected (NotDetected) 03/03/19 10:50 U Marijuana (THC) Screen Not Detected (NotDetected) 03/03/19 10:50 Assessment and Plan Assessment: 33-year-old male presents emergency Department with chief complaint of depression, hearing voices, suicidal ideation. Patient states that this has been building up for last few weeks. Patient states he cannot tolerate this time. Patient states they do not write states that he does have thoughts of hurting himself. No drug or alcohol abuse. Patient is well-controlled insulin dependent diabetic. Patient denies any physical complaints. Patient has talked her counselor past states is very expensive and did not help. - Related Data Home Medications Medication Instructions Recorded Confirmed INSULIN ASPART (NovoLOG) [NovoLOG 5 - 10 unit SQ ACHS 06/03/14 03/03/19 (formulary)] Insulin Glargine [Lantus] 12 unit SQ HS 06/03/14 03/03/19 Allergies Allergy/AdvReac Type Severity Reaction Status Date / Time No Known Allergies Allergy Verified 03/03/19 10:44 Past Medical History Past Medical History: Diabetes Mellitus Additional Past Medical History / Comment(s): IDDM type II diagnosed 2008 History of Any Multi-Drug Resistant Organisms: None Reported Past Surgical History: No Surgical Hx Reported Past Psychological History: No Psychological Hx Reported Smoking Status: Never smoker Past Alcohol Use History: Occasional Past Drug Use History: Marijuana - Past Family History Mother Family Medical History: Hyperlipidemia Additional Family Medical History / Comment(s): Elevated heart rate, RLS. Father Family Medical History: Coronary Artery Disease (CAD), Myocardial Infarction ([place] ) Additional Family Medical History / Comment(s): Father had a [place] at the age of 50 yrs and has 2 coronary stents. Mental status examination time of admission 03/03/2019: The patient presents alert, pleasant, and cooperative. There calmly seated without any agitated behavior. []He reports that [his] mood is good. Affect is congruent and euthymic. [He] deny having any suicidal or homicidal ideation intent or plan. [He] denies any auditory or visual hallucinations. There is no evidence of any delusional thought content. [His] thought process is linear and goal-directed. [His] speech is fluent and nonpressured. [His] memory and concentration is grossly intact for the purposes of this session. Diagnosis: Adjustment disorder Plan: Discharge to home (1) Adjustment disorder with anxious mood Status: Acute Priority: Low Code(s): F43.22 - ADJUSTMENT DISORDER WITH ANXI ETY SNOMED Code(s): 36238827 Time with Patient: Less than 30
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
== END 2019-03-04 14:11 | disposition home or self-care (01) | DRG 885 ==
LOC: EC 10:08 → 3MHU 17:08
PROVIDERS: ADMIT Psychiatry & Neurology Psychiatry; ATTEND Psychiatry & Neurology Psychiatry
DX: F29 Unspecified psychosis not due to a substance or known physiological condition (principal); R45.851 Suicidal ideations; F32.9 Major depressive disorder, single episode, unspecified; E10.9 Type 1 diabetes mellitus without complications; Z79.4 Long term (current) use of insulin; Z82.49 Family history of ischemic heart disease and other diseases of the circulatory system
CPT/HCPCS: 80053; 80061; 80306; 82075; 82248; 83036; 84443; 85025; 99285

== ENCOUNTER 2019-06-07 08:41 | Emergency (ER) | payer OTHER ==
[2019-06-07 08:53] VITALS: TEMP 97.6
[2019-06-07] MEDS ORDERED: SODIUM CHLORIDE 0.9% 500 ML 500 ML IV STA (09:10)
[2019-06-07 09:19] LABS: Glucose,Whole Blood 369 mg/dL (75-99)
[2019-06-07 10:01] LABS: ALT 26 U/L (21-72); AST 20 U/L (17-59); African American GFR (CKD) >90 (>60 ml/min/1.73 sqM); Albumin 4.2 g/dL (3.5-5.0); Alkaline Phosphatase 71 U/L (38-126); Anion Gap 6 mmol/L; Blood Urea Nitrogen 21 mg/dL (9-20); Calcium 9.3 mg/dL (8.4-10.2); Carbon Dioxide 30 mmol/L (22-30); Chloride 103 mmol/L (98-107); Glucose 318 mg/dL (74-99); Magnesium 1.8 mg/dL (1.6-2.3); Potassium 4.1 mmol/L (3.5-5.1); Sodium 139 mmol/L (137-145); Total Bilirubin 0.6 mg/dL (0.2-1.3)
--- NOTE | 2019-06-07 10:03 | XR ---
EXAMINATION TYPE: XR chest 2V DATE OF EXAM: 06/07/2019 COMPARISON: Chest x-ray and CTA chest June 01, 2018. HISTORY: Lightheadedness and weakness. TECHNIQUE: Frontal and lateral views of the chest are obtained. FINDINGS: Overlying EKG leads are redemonstrated. There is no focal air space opacity, pleural effus ion, or pneumothorax seen. The cardiac silhouette size is within normal limits. The osseous struct ures are intact. IMPRESSION: No acute cardiopulmonary process. No significant change from prior studies.
[2019-06-07 10:04] LABS: INR 0.8 (<1.2); Prothrombin Time 9.4 sec (9.0-12.0)
[2019-06-07 10:12] LABS: Partial Thromboplastin Time 20.1 sec (22.0-30.0)
[2019-06-07 10:28] LABS: Basophils % (A) 0 %; Eosinophils % (A) 1 %; HCT 43.8 % (39.0-53.0); HGB 14.7 gm/dL (13.0-17.5); Lymphocytes # (A) 1.5 k/uL (1.0-4.8); Lymphocytes % (A) 29 %; MCH 29.2 pg (25.0-35.0); MCHC 33.5 g/dL (31.0-37.0); MCV 87.1 fL (80.0-100.0); Mean Platelet Volume 8.1; Monocytes # (A) 0.3 k/uL (0-1.0); Monocytes % (A) 6 %; Neutrophils # (A) 3.1 k/uL (1.3-7.7); Neutrophils % (A) 62 %; Platelet Count 196 k/uL (150-450); RBC 5.02 m/uL (4.30-5.90)
[2019-06-07 10:41] LABS: Appearance,Urine Clear (Clear); Bilirubin,Urine Negative (Negative); Blood,Urine Negative (Negative); Color,Urine Light Yellow; Glucose,Urine (UA) 4+ (Negative); Ketones,Urine Negative (Negative); Leukocyte Esterase,Urine Negative (Negative); Nitrite,Urine Negative (Negative); Protein,Urine Negative (Negative); Specific Gravity,Urine 1.036 (1.001-1.035); Urobilinogen,Urine <2.0 mg/dL (<2.0)
--- NOTE | 2019-06-07 10:45 | ED ---
General Adult HPI - General Chief complaint: Weakness Stated complaint: Lightheaded/nausea Time Seen by Provider: 06/07/19 08:50 Source: patient, family, RN notes reviewed Mode of arrival: ambulatory Limitations: no limitations - History of Present Illness Initial comments: This is a 33-year-old male who presents emergency Department complaining of gene ralized weakness. Patient states he is a diabetic and is insulin dependent. Patient states he had just eaten a granola bar and all of a sudden he started feeling lightheaded and slightly dizzy and a little abdominal upset but no pain or vomiting. Patient denies any diarrhea. Patient states prior to this he felt fine and had no symptoms whatsoever. Patient denies any fever or chills. Patient denies any chest pain difficulty breathing shortness of breath. Patient denies any headache patient denies numbness weakness. Patient denies any near syncopal episode. Patient denies any abdominal pain patient denies vomiting or diarrhea. - Related Data Home Medications Medication Instructions Recorded Confirmed INSULIN ASPART (NovoLOG) [NovoLOG See Protocol SQ ACHS 06/03/14 06/07/19 (formulary)] Insulin Glargine [Lantus] 10 - 15 unit SQ HS 06/03/14 06/07/19 Allergies Allergy/AdvReac Type Severity Reaction Status Date / Time No Known Allergies Allergy Verified 06/07/19 10:23 Review of Systems ROS Statement: Those systems with pertinent positive or pertinent negative responses have been documented in the HPI. ROS Other: All systems not noted in ROS Statement are negative. Past Medical History Past Medical History: Diabetes Mellitus Additional Past Medical History / Comment(s): IDDM type II diagnosed 2009 History of Any Multi-Drug Resistant Organisms: None Reported Past Surgical History: No Surgical Hx Reported Past Psychological History: No Psychological Hx Reported Smoking Status: Never smoker Past Alcohol Use History: Occasional Past Drug Use History: Marijuana - Past Family History Mother Family Medical History: Hyperlipidemia Additional Family Medical History / Comment(s): Elevated heart rate, RLS. Father Family Medical History: Coronary Artery Disease (CAD), Myocardial Infarction ([place]) Additional Family Medical History / Comment(s): Father had a [place] at the age of 50 yrs and has 2 coronary stents. General Exam - General Exam Comments Initial Comments: GENERAL: Patient is well-developed and well-nourished. Patient is nontoxic and well- hydrated and is in mild distress. ENT: Neck is soft and supple. No significant lymphadenopathy is noted. Oropharynx is clear. Moist mucous membranes. Neck has full range of motion without eliciting any pain. EYES: The sclera were anicteric and conjunctiva were pink and moist. Extraocular movements were intact and pupils were equal round and reactive to light. Eyelids were unremarkable. PULMONARY: Unlabored respirations. Good breath sounds bilaterally. No audible rales rhonchi or wheezing was noted. CARDIOVASCULAR: There is a regular rate and rhythm without any murmurs gallops or rubs. ABDOMEN: Soft and nontender with normal bowel sounds. No palpable organomegaly was noted. There is no palpable pulsatile mass. SKIN: Skin is clear with no lesions or rashes and otherwise unremarkable. NEUROLOGIC: Patient is alert and oriented x3. Cranial nerves II through XII are grossly intact. Motor and sensory are also intact. Normal speech, volume and content. Symmetrical smile. MUSCULOSKELETAL: Normal extremities with adequate strength and full range of motion. LYMPHATICS: No significant lymphadenopathy is noted PSYCHIATRIC: Normal psychiatric evaluation. Limitations: no limitations Course Vital Signs 06/07/19 06/07/19 08:50 09:40 Temperature 97.6 F Pulse Rate 66 Respiratory 20 Rate Blood Pressure 115/72 Blood Pressure 112/79 [Sitting] Blood Pressure 119/79 [Standing] Blood Pressure 120/78 [Supine] O2 Sat by Pulse 99 Oximetry Medical Decision Making - Medical Decision Making EKG shows normal sinus rhythm at 62 bpm TN interval is 136 dresses 92 QT inter ronni 392 QTC is 397. Patient's EKG shows peaked T waves but no other significant abnormalities. Patient's sugar was elevated emergency department received 4 units of NovoLog. Patient states she will follow-up with top stop attacher. - Lab Data Result diagrams: 06/07/19 09:28 06/07/19 09:28 Lab Results 06/07/19 06/07/19 06/07/19 Range/Units 08:54 09:28 09:28 WBC 5.0 (3.8-10.6) k/uL RBC 5.02 (4.30-5.90) m/uL Hgb 14.7 (13.0-17.5) gm/dL Hct 43.8 (39.0-53.0) % MCV 87.1 (80.0-100.0) fL MCH 29.2 (25.0-35.0) pg MCHC 33.5 (31.0-37.0) g/dL RDW 13.0 (11.5-15.5) % Plt Count 196 (150-450) k/uL Neutrophils % 62 % Lymphocytes % 29 % Monocytes % 6 % Eosinophils % 1 % Basophils % 0 % Neutrophils # 3.1 (1.3-7.7) k/uL Lymphocytes # 1.5 (1.0-4.8) k/uL Monocytes # 0.3 (0-1.0) k/uL Eosinophils # 0.0 (0-0.7) k/uL Basophils # 0.0 (0-0.2) k/uL PT (9.0-12.0) sec INR (<1.2) APTT (22.0-30.0) sec Sodium 139 (137-145) mmol/L Potassium 4.1 (3.5-5.1) mmol/L Chloride 103 (98-107) mmol/L Carbon Dioxide 30 (22-30) mmol/L Anion Gap 6 mmol/L BUN 21 H (9-20) mg/dL Creatinine 0.70 (0.66-1.25) mg/dL Est GFR (CKD-EPI)AfAm >90 (>60 ml/min/1.73 sqM) Est GFR (CKD-EPI)NonAf >90 (>60 ml/min/1.73 sqM) Glucose 318 H (74-99) mg/dL POC Glucose (mg/dL) 369 H (75-99) mg/dL POC Glu Thermal Cutter Hand ID Tony Klein Plasma Lactic Acid [place] (0.7-2.0) mmol/L Calcium 9.3 (8.4-10.2) mg/dL Magnesium 1.8 (1.6-2.3) mg/dL Total Bilirubin 0.6 (0.2-1.3) mg/dL AST 20 (17-59) U/L ALT 26 (21-72) U/L Alkaline Phosphatase 71 (38-126) U/L Troponin I (0.000-0.034) ng/mL Total Protein 7.0 (6.3-8.2) g/dL Albumin 4.2 (3.5-5.0) g/dL Urine Color Urine Appearance (Clear) Urine pH (5.0-8.0) Ur Specific [place] (1.001-1.035) Urine Protein (Negative) Urine Glucose (UA) (Negative) Urine Ketones (Negative) Urine Blood (Negative) Urine Nitrite (Negative) Urine Bilirubin (Negative) Urine Urobilinogen (<2.0) mg/dL Ur Leukocyte Esterase (Negative) Acetone, Qual Negative (Negative) 06/07/19 06/07/19 06/07/19 Range/Units 09:28 09:28 09:28 WBC (3.8-10.6) k/uL RBC (4.30-5.90) m/uL Hgb (13.0-17.5) gm/dL Hct (39.0-53.0) % MCV (80.0-100.0) fL MCH (25.0-35.0) pg MCHC (31.0-37.0) g/dL RDW (11.5-15.5) % Plt Count (150-450) k/uL Neutrophils % % Lymphocytes % % Monocytes % % Eosinophils % % Basophils % % Neutrophils # (1.3-7.7) k/uL Lymphocytes # (1.0-4.8) k/uL Monocytes # (0-1.0) k/uL Eosinophils # (0-0.7) k/uL Basophils # (0-0.2) k/uL PT 9.4 (9.0-12.0) sec INR 0.8 (<1.2) APTT 20.1 L (22.0-30.0) sec Sodium (137-145) mmol/L Potassium (3.5-5.1) mmol/L Chloride (98-107) mmol/L Carbon Dioxide (22-30) mmol/L Anion Gap mmol/L BUN (9-20) mg/dL Creatinine (0.66-1.25) mg/dL Est GFR (CKD-EPI)AfAm (>60 ml/min/1.73 sqM) Est GFR (CKD-EPI)NonAf (>60 ml/min/1.73 sqM) Glucose (74-99) mg/dL POC Glucose (mg/dL) (75-99) mg/dL POC Glu Thermal Cutter Hand ID Plasma Lactic Acid [place] 1.4 (0.7-2.0) mmol/L Calcium (8.4-10.2) mg/dL Magnesium (1.6-2.3) mg/dL Total Bilirubin (0.2-1.3) mg/dL AST (17-59) U/L ALT (21-72) U/L Alkaline Phosphatase (38-126) U/L Troponin I <0.012 (0.000-0.034) ng/mL Total Protein (6.3-8.2) g/dL Albumin (3.5-5.0) g/dL Urine Color Urine Appearance (Clear) Urine pH (5.0-8.0) Ur Specific [place] (1.001-1.035) Urine Protein (Negative) Urine Glucose (UA) (Negative) Urine Ketones (Negative) Urine Blood (Negative) Urine Nitrite (Negative) Urine Bilirubin (Negative) Urine Urobilinogen (<2.0) mg/dL Ur Leukocyte Esterase (Negative) Acetone, Qual (Negative) 06/07/19 Range/Units 10:22 WBC (3.8-10.6) k/uL RBC (4.30-5.90) m/uL Hgb (13.0-17.5) gm/dL Hct (39.0-53.0) % MCV (80.0-100.0) fL MCH (25.0-35.0) pg MCHC (31.0-37.0) g/dL RDW (11.5-15.5) % Plt Count (150-450) k/uL Neutrophils % % Lymphocytes % % Monocytes % % Eosinophils % % Basophils % % Neutrophils # (1.3-7.7) k/uL Lymphocytes # (1.0-4.8) k/uL Monocytes # (0-1.0) k/uL Eosinophils # (0-0.7) k/uL Basophils # (0-0.2) k/uL PT (9.0-12.0) sec INR (<1.2) APTT (22.0-30.0) sec Sodium (137-145) mmol/L Potassium (3.5-5.1) mmol/L Chloride (98-107) mmol/L Carbon Dioxide (22-30) mmol/L Anion Gap mmol/L BUN (9-20) mg/dL Creatinine (0.66-1.25) mg/dL Est GFR (CKD-EPI)AfAm (>60 ml/min/1.73 sqM) Est GFR (CKD-EPI)NonAf (>60 ml/min/1.73 sqM) Glucose (74-99) mg/dL POC Glucose (mg/dL) (75-99) mg/dL POC Glu Thermal Cutter Hand ID Plasma Lactic Acid [place] (0.7-2.0) mmol/L Calcium (8.4-10.2) mg/dL Magnesium (1.6-2.3) mg/dL Total Bilirubin (0.2-1.3) mg/dL AST (17-59) U/L ALT (21-72) U/L Alkaline Phosphatase (38-126) U/L Troponin I (0.000-0.034) ng/mL Total Protein (6.3-8.2) g/dL Albumin (3.5-5.0) g/dL Urine Color Light Yellow Urine Appearance Clear (Clear) Urine pH 6.0 (5.0-8.0) Ur Specific [place] 1.036 H (1.001-1.035) Urine Protein Negative (Negative) Urine Glucose (UA) 4+ H (Negative) Urine Ketones Negative (Negative) Urine Blood Negative (Negative) Urine Nitrite Negative (Negative) Urine Bilirubin Negative (Negative) Urine Urobilinogen <2.0 (<2.0) mg/dL Ur Leukocyte Esterase Negative (Negative) Acetone, Qual (Negative) Disposition Clinical Impression: Lightheaded, Dehydration, Hyperglycemia Disposition: HOME SELF-CARE Condition: Good Instructions (If sedation given, give patient instructions): Diabetic Hyperglycemia (ED) Additional Instructions: Patient should follow-up with an top stop attacher. Is patient prescribed a controlled substance at d/c from ED?: No Referrals: Av Bain MD [Primary Care Provider] - 1-2 days Time of Disposition: 12:08
[2019-06-07] MEDS ORDERED: INSULIN ASPART (NovoLOG) 100 UNIT/ML VIAL SQ ONE (12:02)
[2019-06-07 12:06] LABS: Glucose,Whole Blood 252 mg/dL (75-99)
[2019-06-07 13:03] VITALS: BP 113/68; PULSE 75; RESP 18
== END 2019-06-07 13:05 | disposition home or self-care (01) ==
LOC: EC 08:41
DX: E86.0 Dehydration (principal); E11.65 Type 2 diabetes mellitus with hyperglycemia; Z79.4 Long term (current) use of insulin
CPT/HCPCS: 36415; 71046; 80053; 81003; 82009; 83605; 83735; 84484; 85025; 85610; 85730; 93005; 96360; 99285

== ENCOUNTER 2020-02-29 14:05 | Emergency (ER) | payer OTHER ==
[2020-02-29 14:11] VITALS: RESP 18
[2020-02-29] MEDS ORDERED: SODIUM CHLORIDE 0.9% 1,000 ML IV ONE (15:17)
[2020-02-29 15:32] LABS: Basophils % (A) 0 %; Eosinophils # (A) 0.1 k/uL (0-0.7); Eosinophils % (A) 1 %; HCT 49.6 % (39.0-53.0); HGB 16.7 gm/dL (13.0-17.5); Lymphocytes # (A) 1.2 k/uL (1.0-4.8); Lymphocytes % (A) 13 %; MCH 29.5 pg (25.0-35.0); MCHC 33.7 g/dL (31.0-37.0); MCV 87.5 fL (80.0-100.0); Mean Platelet Volume 8.2; Monocytes # (A) 0.5 k/uL (0-1.0); Monocytes % (A) 5 %; Neutrophils # (A) 7.8 k/uL (1.3-7.7); Neutrophils % (A) 80 %; Platelet Count 215 k/uL (150-450); RBC 5.67 m/uL (4.30-5.90); RDW 12.1 % (11.5-15.5); WBC 9.7 k/uL (3.8-10.6)
--- NOTE | 2020-02-29 15:33 | ED ---
General Adult HPI - General Chief complaint: Headache Stated complaint: Headache/Dizzy Time Seen by Provider: 02/29/20 15:00 Source: patient, RN notes reviewed, old records reviewed Mode of arrival: ambulatory Limitations: no limitations - History of Present Illness Initial comments: 34-year-old male with type 1 diabetes presenting for evaluation of frontal headache and concern that he may be dehydrated. He's had a poor appetite over the past 12 hours. No vomiting. No fever. His headache is similar to previous sinus headaches he's had in the past and does admit that he was outside all day yesterday. He denies any pain complaints. Denies URI complaints. He has been compliant with his insulin. States his blood sugars have been running between 120 and 180. No dysuria or hematuria. - Related Data Home Medications Medication Instructions Recorded Confirmed INSULIN ASPART (NovoLOG) [NovoLOG See Protocol SQ ACHS 06/03/14 06/07/19 (formulary)] Insulin Glargine [Lantus] 10 - 15 unit SQ HS 06/03/14 06/07/19 Allergies Allergy/AdvReac Type Severity Reaction Status Date / Time No Known Allergies Allergy Verified 02/29/20 14:06 Review of Systems ROS Statement: Those systems with pertinent positive or pertinent negative responses have been documented in the HPI. ROS Other: All systems not noted in ROS Statement are negative. Past Medical History Past Medical History: Diabetes Mellitus Additional Past Medical History / Comment(s): IDDM type I diagnosed 2008 (no insulin pump) History of Any Multi-Drug Resistant Organisms: None Reported Past Surgical History: No Surgical Hx Reported Past Psychological History: No Psychological Hx Reported Smoking Status: Never smoker Past Alcohol Use History: None Reported, Occasional Past Drug Use History: None Reported, Marijuana - Past Family History Mother Family Medical History: Hyperlipidemia Additional Family Medical History / Comment(s): Elevated heart rate, RLS. Father Family Medical History: Coronary Artery Disease (CAD), Myocardial Infarction ([place]) Additional Family Medical History / Comment(s): Father had a [place] at the age of 50 yrs and has 2 coronary stents. General Exam Limitations: no limitations General appearance: alert, in no apparent distress Head exam: Present: atraumatic, normocephalic Eye exam: Present: normal appearance. Absent: PERRL, EOMI ENT exam: Present: mucous membranes dry Neck exam: Present: normal inspection. Absent: tenderness, meningismus Respiratory exam: Present: normal lung sounds bilaterally. Absent: respiratory distress, wheezes Cardiovascular Exam: Present: regular rate, normal rhythm GI/Abdominal exam: Present: soft. Absent: distended, tenderness, guarding, rebound Extremities exam: Present: normal inspection, normal capillary refill. Absent: pedal edema Neurological exam: Present: alert, oriented X3, CN II-XII intact. Absent: motor sensory deficit Psychiatric exam: Present: normal affect, normal mood Skin exam: Present: warm, dry, intact. Absent: cyanosis, diaphoretic Course Vital Signs 02/29/20 14:07 Temperature 98 F Pulse Rate 79 Respiratory 18 Rate Blood Pressure 112/81 O2 Sat by Pulse 99 Oximetry Medical Decision Making - Medical Decision Making 34-year-old male with lightheadedness, dehydration. Type I diabetic. CBC is normal, CMP shows elevated blood glucose at 200, normal anion gap, normal CO2. He has a sodium of 136 other electrolytes are within normal limits. Urinalysis showed 4+ glucose and 1+ ketones. He is given 1 L of IV hydration and on reeval uation is feeling better. He will closely monitor his blood sugar at home. He will maintain oral hydration. - Lab Data Result diagrams: 02/29/20 15:21 02/29/20 15:21 Lab Results 02/29/20 02/29/20 02/29/20 Range/Units 15:21 15:21 15:21 WBC 9.7 (3.8-10.6) k/uL RBC 5.67 (4.30-5.90) m/uL Hgb 16.7 (13.0-17.5) gm/dL Hct 49.6 (39.0-53.0) % MCV 87.5 (80.0-100.0) fL MCH 29.5 (25.0-35.0) pg MCHC 33.7 (31.0-37.0) g/dL RDW 12.1 (11.5-15.5) % Plt Count 215 (150-450) k/uL Neutrophils % 80 % Lymphocytes % 13 % Monocytes % 5 % Eosinophils % 1 % Basophils % 0 % Neutrophils # 7.8 H (1.3-7.7) k/uL Lymphocytes # 1.2 (1.0-4.8) k/uL Monocytes # 0.5 (0-1.0) k/uL Eosinophils # 0.1 (0-0.7) k/uL Basophils # 0.0 (0-0.2) k/uL Sodium 136 L (137-145) mmol/L Potassium 4.3 (3.5-5.1) mmol/L Chloride 100 (98-107) mmol/L Carbon Dioxide 26 (22-30) mmol/L Anion Gap 10 mmol/L BUN 19 (9-20) mg/dL Creatinine 0.62 L (0.66-1.25) mg/dL Est GFR (CKD-EPI)AfAm >90 (>60 ml/min/1.73 sqM) Est GFR (CKD-EPI)NonAf >90 (>60 ml/min/1.73 sqM) Glucose 202 H (74-99) mg/dL Calcium 10.0 (8.4-10.2) mg/dL Urine Color Yellow Urine Appearance Clear (Clear) Urine pH 5.5 (5.0-8.0) Ur Specific [place] 1.022 (1.001-1.035) Urine Protein Negative (Negative) Urine Glucose (UA) 4+ H (Negative) Urine Ketones 1+ H (Negative) Urine Blood Negative (Negative) Urine Nitrite Negative (Negative) Urine Bilirubin Negative (Negative) Urine Urobilinogen <2.0 (<2.0) mg/dL Ur Leukocyte Esterase Negative (Negative) Disposition Clinical Impression: Diabetes, Dehydration Disposition: HOME SELF-CARE Condition: Good Instructions (If sedation given, give patient instructions): Acute Headache (ED), Dehydration (ED) Additional Instructions: Please closely monitoring her blood sugar, please maintain hydration. Please return with worsening or changing symptoms. Is patient prescribed a controlled substance at d/c from ED?: No Referrals: Av Bain MD [Primary Care Provider] - 1-2 days Time of Disposition: 16:04
[2020-02-29 15:35] LABS: Appearance,Urine Clear (Clear); Bilirubin,Urine Negative (Negative); Blood,Urine Negative (Negative); Color,Urine Yellow; Glucose,Urine (UA) 4+ (Negative); Ketones,Urine 1+ (Negative); Leukocyte Esterase,Urine Negative (Negative); Nitrite,Urine Negative (Negative); PH, Urine 5.5 (5.0-8.0); Protein,Urine Negative (Negative); Specific Gravity,Urine 1.022 (1.001-1.035); Urobilinogen,Urine <2.0 mg/dL (<2.0)
[2020-02-29 15:44] LABS: African American GFR (CKD) >90 (>60 ml/min/1.73 sqM); Anion Gap 10 mmol/L; Blood Urea Nitrogen 19 mg/dL (9-20); Carbon Dioxide 26 mmol/L (22-30); Chloride 100 mmol/L (98-107); Glucose 202 mg/dL (74-99); Non-African American GFR(CKD) >90 (>60 ml/min/1.73 sqM); Potassium 4.3 mmol/L (3.5-5.1); Sodium 136 mmol/L (137-145)
[2020-02-29 16:19] VITALS: BP 128/85; PULSE 91; TEMP 98.2
== END 2020-02-29 16:25 | disposition home or self-care (01) ==
LOC: EC 14:05
DX: E10.65 Type 1 diabetes mellitus with hyperglycemia (principal); E86.0 Dehydration; Z79.4 Long term (current) use of insulin
CPT/HCPCS: 36415; 80048; 81003; 85025; 96360; 99284

== ENCOUNTER 2021-03-15 10:08 | Emergency (ER) | payer OTHER ==
[2021-03-15 10:12] VITALS: TEMP 98
[2021-03-15 10:21] LABS: Glucose,Whole Blood 288 mg/dL (75-99)
[2021-03-15] MEDS ORDERED: ACETAMINOPHEN TAB 500 MG TAB PO STA (10:28)
--- NOTE | 2021-03-15 10:31 | ED ---
General Adult HPI - General Chief complaint: Upper Respiratory Infection Stated complaint: body aches/lightheaded Time Seen by Provider: 03/15/21 10:21 Source: patient, RN notes reviewed Mode of arrival: ambulatory Limitations: no limitations - History of Present Illness Initial comments: Patient is a pleasant 35-year-old diabetic male presenting to the emergency department with not feeling well. Patient has been achy for the past 2-3 days. Patient has had some chills and fatigue. Patient did lose his taste. Slightly diminished small. Decreased appetite. Patient does have mild cough. No dyspnea. No abdominal pain. No vomiting or diarrhea. - Related Data Home Medications Medication Instructions Recorded Confirmed Insulin Aspart [NovoLOG Flexpen] See Protocol SQ AC-TID 03/15/21 03/15/21 Insulin Detemir [Levemir Flextouch] 15 units SQ HS 03/15/21 03/15/21 Allergies Allergy/AdvReac Type Severity Reaction Status Date / Time No Known Allergies Allergy Verified 03/15/21 11:04 Review of Systems ROS Statement: Those systems with pertinent positive or pertinent negative responses have been documented in the HPI. ROS Other: All systems not noted in ROS Statement are negative. Constitutional: Reports: as per HPI, chills Eyes: Denies: eye pain ENT: Denies: ear pain Respiratory: Reports: cough. Denies: dyspnea Cardiovascular: Denies: chest pain Endocrine: Reports: fatigue Gastrointestinal: Reports: as per HPI. Denies: abdominal pain Genitourinary: Denies: dysuria Musculoskeletal: Denies: back pain Skin: Denies: rash Neurological: Denies: weakness Past Medical History Past Medical History: Diabetes Mellitus Additional Past Medical History / Comment(s): IDDM type I diagnosed 2008 (no insulin pump) History of Any Multi-Drug Resistant Organisms: None Reported Past Surgical History: No Surgical Hx Reported Past Psychological History: No Psychological Hx Reported Smoking Status: Never smoker Past Alcohol Use History: None Reported, Occasional Past Drug Use History: None Reported, Marijuana - Past Family History Mother Family Medical History: Hyperlipidemia Additional Family Medical History / Comment(s): Elevated heart rate, RLS. Father Family Medical History: Coronary Artery Disease (CAD), Myocardial Infarction ([place]) Additional Family Medical History / Comment(s): Father had a [place] at the age of 50 yrs and has 2 coronary stents. General Exam Limitations: no limitations General appearance: alert, in no apparent distress Head exam: Present: normocephalic Eye exam: Present: normal appearance Neck exam: Present: normal inspection Respiratory exam: Present: normal lung sounds bilaterally Cardiovascular Exam: Present: regular rate, normal rhythm GI/Abdominal exam: Present: soft. Absent: tenderness Extremities exam: Present: normal inspection. Absent: pedal edema, calf tenderness Neurological exam: Present: alert Psychiatric exam: Present: normal affect, normal mood Skin exam: Present: normal color Course Vital Signs 03/15/21 10:10 Temperature 98 F Pulse Rate 76 Respiratory 20 Rate Blood Pressure 130/81 O2 Sat by Pulse 98 Oximetry EKG Findings - EKG Comments: EKG Findings:: Normal sinus rhythm at 65. ND 146. QRS 96. QT 392. QTC 407. Normal axis. Normal QRS. No acute ST change. Medical Decision Making - Medical Decision Making Patient reevaluated and updated. Patient made aware of stability for undiagnosed COVID-19 infection and recommend he gets rechecked if symptoms continue - Lab Data Result diagrams: 03/15/21 10:42 03/15/21 10:42 Lab Results 03/15/21 03/15/21 03/15/21 Range/Units 10:19 10:21 10:42 WBC 6.9 (3.8-10.6) k/uL RBC 4.95 (4.30-5.90) m/uL Hgb 15.4 (13.0-17.5) gm/dL Hct 43.7 (39.0-53.0) % MCV 88.4 (80.0-100.0) fL MCH 31.2 (25.0-35.0) pg MCHC 35.3 (31.0-37.0) g/dL RDW 11.9 (11.5-15.5) % Plt Count 194 (150-450) k/uL MPV 8.1 Neutrophils % 77 % Lymphocytes % 17 % Monocytes % 4 % Eosinophils % 1 % Basophils % 0 % Neutrophils # 5.3 (1.3-7.7) k/uL Lymphocytes # 1.2 (1.0-4.8) k/uL Monocytes # 0.3 (0-1.0) k/uL Eosinophils # 0.1 (0-0.7) k/uL Basophils # 0.0 (0-0.2) k/uL PT (9.0-12.0) sec INR (<1.2) APTT (22.0-30.0) sec Sodium (137-145) mmol/L Potassium (3.5-5.1) mmol/L Chloride (98-107) mmol/L Carbon Dioxide (22-30) mmol/L Anion Gap mmol/L BUN (9-20) mg/dL Creatinine (0.66-1.25) mg/dL Est GFR (CKD-EPI)AfAm (>60 ml/min/1.73 sqM) Est GFR (CKD-EPI)NonAf (>60 ml/min/1.73 sqM) Glucose (74-99) mg/dL POC Glucose (mg/dL) 288 H (75-99) mg/dL POC Glu Computer Systems Engineer ID Svacha, II, Roshan Plasma Lactic Acid Homar (0.7-2.0) mmol/L Calcium (8.4-10.2) mg/dL Magnesium (1.6-2.3) mg/dL Total Bilirubin (0.2-1.3) mg/dL AST (17-59) U/L ALT (4-49) U/L Alkaline Phosphatase (38-126) U/L Lactate Dehydrogenase (313-618) U/L C-Reactive Protein (<1.0) mg/dL Total Protein (6.3-8.2) g/dL Albumin (3.5-5.0) g/dL Coronavirus (PCR) Not Detected (Not Detectd) 03/15/21 03/15/21 03/15/21 Range/Units 10:42 10:42 10:42 WBC (3.8-10.6) k/uL RBC (4.30-5.90) m/uL Hgb (13.0-17.5) gm/dL Hct (39.0-53.0) % MCV (80.0-100.0) fL MCH (25.0-35.0) pg MCHC (31.0-37.0) g/dL RDW (11.5-15.5) % Plt Count (150-450) k/uL MPV Neutrophils % % Lymphocytes % % Monocytes % % Eosinophils % % Basophils % % Neutrophils # (1.3-7.7) k/uL Lymphocytes # (1.0-4.8) k/uL Monocytes # (0-1.0) k/uL Eosinophils # (0-0.7) k/uL Basophils # (0-0.2) k/uL PT 9.6 (9.0-12.0) sec INR 0.9 (<1.2) APTT 21.3 L (22.0-30.0) sec Sodium 135 L (137-145) mmol/L Potassium 4.6 (3.5-5.1) mmol/L Chloride 98 (98-107) mmol/L Carbon Dioxide 26 (22-30) mmol/L Anion Gap 11 mmol/L BUN 16 (9-20) mg/dL Creatinine 0.62 L (0.66-1.25) mg/dL Est GFR (CKD-EPI)AfAm >90 (>60 ml/min/1.73 sqM) Est GFR (CKD-EPI)NonAf >90 (>60 ml/min/1.73 sqM) Glucose 312 H (74-99) mg/dL POC Glucose (mg/dL) (75-99) mg/dL POC Glu Computer Systems Engineer ID Plasma Lactic Acid Homar 1.2 (0.7-2.0) mmol/L Calcium 10.0 (8.4-10.2) mg/dL Magnesium 1.8 (1.6-2.3) mg/dL Total Bilirubin 1.0 (0.2-1.3) mg/dL AST 24 (17-59) U/L ALT 24 (4-49) U/L Alkaline Phosphatase 83 (38-126) U/L Lactate Dehydrogenase 393 (313-618) U/L C-Reactive Protein 1.0 H (<1.0) mg/dL Total Protein 7.7 (6.3-8.2) g/dL Albumin 4.7 (3.5-5.0) g/dL Coronavirus (PCR) (Not Detectd) - Radiology Data Radiology results: image reviewed (Chest x-ray shows no acute process) Disposition Clinical Impression: Chills, Fatigue Disposition: HOME SELF-CARE Condition: Stable Instructions (If sedation given, give patient instructions): Fever in Adults (ED), Viral Syndrome (ED) Additional Instructions: Please do follow-up with your primary care physician in the next day or 2 for recheck. Administer insulin when he returned home as planned. If symptoms continue you will need repeat testing in the near future. Return for positive test, difficulty breathing, fevers, worsening or change in symptoms or other concerns. Is patient prescribed a controlled substance at d/c from ED?: No Referrals: Av Bain MD [Primary Care Provider] - 1-2 days Time of Disposition: 12:18
[2021-03-15 10:58] LABS: Basophils % (A) 0 %; Eosinophils # (A) 0.1 k/uL (0-0.7); Eosinophils % (A) 1 %; HCT 43.7 % (39.0-53.0); HGB 15.4 gm/dL (13.0-17.5); Lymphocytes # (A) 1.2 k/uL (1.0-4.8); Lymphocytes % (A) 17 %; MCH 31.2 pg (25.0-35.0); MCHC 35.3 g/dL (31.0-37.0); MCV 88.4 fL (80.0-100.0); Mean Platelet Volume 8.1; Monocytes # (A) 0.3 k/uL (0-1.0); Monocytes % (A) 4 %; Neutrophils # (A) 5.3 k/uL (1.3-7.7); Neutrophils % (A) 77 %; Platelet Count 194 k/uL (150-450); RBC 4.95 m/uL (4.30-5.90); RDW 11.9 % (11.5-15.5); WBC 6.9 k/uL (3.8-10.6)
[2021-03-15 11:15] LABS: ALT 24 U/L (4-49); AST 24 U/L (17-59); African American GFR (CKD) >90 (>60 ml/min/1.73 sqM); Albumin 4.7 g/dL (3.5-5.0); Alkaline Phosphatase 83 U/L (38-126); Anion Gap 11 mmol/L; Blood Urea Nitrogen 16 mg/dL (9-20); Carbon Dioxide 26 mmol/L (22-30); Chloride 98 mmol/L (98-107); Glucose 312 mg/dL (74-99); LDH 393 U/L (313-618); Magnesium 1.8 mg/dL (1.6-2.3); Non-African American GFR(CKD) >90 (>60 ml/min/1.73 sqM); Potassium 4.6 mmol/L (3.5-5.1); Sodium 135 mmol/L (137-145); Total Protein 7.7 g/dL (6.3-8.2)
[2021-03-15 11:27] LABS: INR 0.9 (<1.2); Prothrombin Time 9.6 sec (9.0-12.0)
--- NOTE | 2021-03-15 11:31 | XR ---
EXAMINATION TYPE: XR chest 1V portable DATE OF EXAM: 03/15/2021 COMPARISON: Chest x-ray 06/07/2019 HISTORY: Body aches, headache, Covid 19 TECHNIQUE: Single frontal view of the chest is obtained. FINDINGS: There is no focal air space opacity, pleural effusion, or pneumothorax seen. The cardiac silhouette size is within normal limits. The osseous structures are intact. IMPRESSION: No acute process.
[2021-03-15 11:36] LABS: Partial Thromboplastin Time 21.3 sec (22.0-30.0)
[2021-03-15 12:39] VITALS: BP 125/81; PULSE 82; RESP 18
[2021-03-16 06:48] LABS: Ferritin 186.7 ng/mL (22.0-322.0)
== END 2021-03-15 12:39 | disposition home or self-care (01) ==
LOC: EC 10:08
DX: R68.83 Chills (without fever) (principal); R53.83 Other fatigue; R42 Dizziness and giddiness; R05 Cough; R63.0 Anorexia; R52 Pain, unspecified; E10.9 Type 1 diabetes mellitus without complications; Z20.822 Contact with and (suspected) exposure to COVID-19
CPT/HCPCS: 36415; 71045; 80053; 82728; 83605; 83615; 83735; 84145; 85025; 85610; 85730; 86140; 87635; 93005; 99284

== ENCOUNTER 2021-11-26 18:40 | Emergency (ER) | payer OTHER ==
[2021-11-26 19:44] VITALS: BP 148/101; RESP 18
[2021-11-26] MEDS ORDERED: SODIUM CHLORIDE 0.9% 1,000 ML IV ONE (21:25)
[2021-11-26] MEDS ORDERED: IBUPROFEN 400 MG TAB PO STA (21:27)
[2021-11-26] MEDS ORDERED: ONDANSETRON 4 MG/2 ML VIAL IVP STA (21:27)
--- NOTE | 2021-11-26 21:32 | ED ---
URI HPI - General Chief Complaint: Upper Respiratory Infection Stated Complaint: Covid+, dizzy Time Seen by Provider: 11/26/21 20:57 Source: patient Mode of arrival: ambulatory Limitations: no limitations - History of Present Illness Initial Comments: 's patient is a 36-year-old man who presents with complaint that he feels he is getting dehydrated and just not feeling well in general. The patient states he started getting sick on [place] and then was diagnosed with COVID-19 infection. He states that he just does not seem to be improving. He complains of having cough, body aches, fever and chills, nausea and diarrhea. Patient feels like he is dehydrated though he is taking fluids. MD Complaint: cough, nasal congestion, other Consistency: constant Improves With: nothing Worsens With: nothing Associated Symptoms: fever, chills, myalgias, headache, nasal congestion, cough, nausea, diarrhea - Related Data Home Medications Medication Instructions Recorded Confirmed Insulin Aspart [NovoLOG Flexpen] See Protocol SQ AC-TID 03/15/21 11/26/21 Insulin Detemir [Levemir Flextouch] 15 units SQ HS 03/15/21 11/26/21 Previous Rx's Medication Instructions Recorded Azithromycin [Zithromax Z-pack (6 250 mg PO DIRECTED #6 tab 11/27/21 tabs)] Allergies Allergy/AdvReac Type Severity Reaction Status Date / Time No Known Allergies Allergy Verified 11/26/21 21:46 Review of Systems ROS Statement: Those systems with pertinent positive or pertinent negative responses have been documented in the HPI. ROS Other: All systems not noted in ROS Statement are negative. Constitutional: Reports: fever, chills ENT: Reports: congestion Respiratory: Reports: cough. Denies: dyspnea, wheezes Cardiovascular: Denies: chest pain, palpitations Gastrointestinal: Reports: nausea, diarrhea. Denies: abdominal pain, vomiting, constipation Genitourinary: Denies: dysuria, hematuria Musculoskeletal: Denies: back pain Skin: Denies: rash Neurological: Reports: headache. Denies: weakness, numbness Past Medical History Past Medical History: Diabetes Mellitus Additional Past Medical History / Comment(s): IDDM type I diagnosed 2008 (no insulin pump), COVID 11/12 History of Any Multi-Drug Resistant Organisms: None Reported Past Surgical History: No Surgical Hx Reported Past Psychological History: No Psychological Hx Reported Smoking Status: Never smoker Past Alcohol Use History: None Reported, Occasional Past Drug Use History: None Reported, Marijuana - Past Family History Mother Family Medical History: Hyperlipidemia Additional Family Medical History / Comment(s): Elevated heart rate, RLS. Father Family Medical History: Coronary Artery Disease (CAD), Myocardial Infarction ([place]) Additional Family Medical History / Comment(s): Father had a ME at the age of 50 yrs and has 2 coronary stents. General Exam Limitations: no limitations General appearance: alert, in no apparent distress Head exam: Present: atraumatic, normocephalic Eye exam: Present: normal appearance Respiratory exam: Present: normal lung sounds bilaterally. Absent: respiratory distress, wheezes, rales, rhonchi, stridor, accessory muscle use, decreased breath sounds Cardiovascular Exam: Present: regular rate, normal rhythm, normal heart sounds. Absent: systolic murmur, diastolic murmur, rubs, gallop GI/Abdominal exam: Present: soft. Absent: distended, tenderness, guarding, rebound, rigid, mass Extremities exam: Present: normal inspection Back exam: Present: normal inspection. Absent: CVA tenderness (R), CVA tenderness (L) Neurological exam: Present: alert Skin exam: Present: warm, dry, intact, normal color. Absent: rash Course Vital Signs 11/26/21 11/27/21 19:40 00:12 Temperature 100.2 F H Pulse Rate 88 77 Respiratory 18 18 Rate Blood Pressure 148/101 O2 Sat by Pulse 97 97 Oximetry Medical Decision Making - Lab Data Result diagrams: 11/26/21 21:58 11/26/21 21:58 Lab Results 11/26/21 11/26/21 Range/Units 21:58 21:58 WBC 7.8 (3.8-10.6) k/uL RBC 4.83 (4.30-5.90) m/uL Hgb 14.9 (13.0-17.5) gm/dL Hct 42.8 (39.0-53.0) % MCV 88.6 (80.0-100.0) fL MCH 30.9 (25.0-35.0) pg MCHC 34.9 (31.0-37.0) g/dL RDW 11.8 (11.5-15.5) % Plt Count 205 (150-450) k/uL MPV 8.8 Neutrophils % 76 % Lymphocytes % 13 % Monocytes % 8 % Eosinophils % 0 % Basophils % 0 % Neutrophils # 6.0 (1.3-7.7) k/uL Lymphocytes # 1.1 (1.0-4.8) k/uL Monocytes # 0.6 (0-1.0) k/uL Eosinophils # 0.0 (0-0.7) k/uL Basophils # 0.0 (0-0.2) k/uL Sodium 137 (137-145) mmol/L Potassium 4.1 (3.5-5.1) mmol/L Chloride 101 (98-107) mmol/L Carbon Dioxide 22 (22-30) mmol/L Anion Gap 14 mmol/L BUN 13 (9-20) mg/dL Creatinine 0.56 L (0.66-1.25) mg/dL Est GFR (CKD-EPI)AfAm >90 (>60 ml/min/1.73 sqM) Est GFR (CKD-EPI)NonAf >90 (>60 ml/min/1.73 sqM) Glucose 209 H (74-99) mg/dL Calcium 8.9 (8.4-10.2) mg/dL Acetone, Qual Negative (Negative) Disposition Clinical Impression: COVID-19, Pneumonia Disposition: HOME SELF-CARE Condition: Good Instructions (If sedation given, give patient instructions): Pneumonia (ED) Prescriptions: Azithromycin [Zithromax Z-pack (6 tabs)] 250 mg PO DIRECTED #6 tab Is patient prescribed a controlled substance at d/c from ED?: No Referrals: Av Bain MD [Primary Care Provider] - 1-2 days
--- NOTE | 2021-11-26 21:38 | XR ---
EXAMINATION TYPE: XR chest 2V DATE OF EXAM: 11/26/2021 COMPARISON: 03/15/2021 HISTORY: Cough TECHNIQUE: 2 view FINDINGS: There is a poorly marginated 4 cm patch of infiltrate in the left lower lung field. Heart a nd mediastinum are normal. Diaphragm is normal. Bony thorax is intact IMPRESSION: Small pneumonia in the left lower lobe appears new compared to old exam. Normal heart.
[2021-11-26 22:07] LABS: Basophils % (A) 0 %; Eosinophils % (A) 0 %; HCT 42.8 % (39.0-53.0); HGB 14.9 gm/dL (13.0-17.5); Lymphocytes # (A) 1.1 k/uL (1.0-4.8); Lymphocytes % (A) 13 %; MCH 30.9 pg (25.0-35.0); MCHC 34.9 g/dL (31.0-37.0); MCV 88.6 fL (80.0-100.0); Mean Platelet Volume 8.8; Monocytes # (A) 0.6 k/uL (0-1.0); Monocytes % (A) 8 %; Neutrophils % (A) 76 %; Platelet Count 205 k/uL (150-450); RBC 4.83 m/uL (4.30-5.90); RDW 11.8 % (11.5-15.5); WBC 7.8 k/uL (3.8-10.6)
[2021-11-26 22:19] LABS: African American GFR (CKD) >90 (>60 ml/min/1.73 sqM); Anion Gap 14 mmol/L; Blood Urea Nitrogen 13 mg/dL (9-20); Calcium 8.9 mg/dL (8.4-10.2); Carbon Dioxide 22 mmol/L (22-30); Chloride 101 mmol/L (98-107); Glucose 209 mg/dL (74-99); Non-African American GFR(CKD) >90 (>60 ml/min/1.73 sqM); Potassium 4.1 mmol/L (3.5-5.1); Sodium 137 mmol/L (137-145)
[2021-11-26] MEDS ORDERED: AZITHROMYCIN 500 MG TAB PO STA (23:08)
[2021-11-27 00:13] VITALS: PULSE 77
[2021-11-27 01:01] VITALS: TEMP 98.9
== END 2021-11-27 01:01 | disposition home or self-care (01) ==
LOC: EC 18:40
DX: U07.1 COVID-19 (principal); J18.9 Pneumonia, unspecified organism; E11.9 Type 2 diabetes mellitus without complications; Z79.4 Long term (current) use of insulin
CPT/HCPCS: 36415; 80048; 82009; 85025; 71046; 96365; 96375; 96361; 99284; J2405; J0696

== ENCOUNTER 2022-03-05 08:09 | Emergency (ER) | payer OTHER ==
[2022-03-05 08:14] VITALS: TEMP 98.3
--- NOTE | 2022-03-05 08:59 | ED ---
Chest Pain HPI - General Chief Complaint: Chest Pain Stated Complaint: chest pressure Time Seen by Provider: 03/05/22 08:16 Source: patient, RN notes reviewed Mode of arrival: ambulatory Limitations: no limitations - History of Present Illness Initial Comments: This is a 36 -year-old male presented to the emergency Department with chief complaint right-sided chest discomfort. Patient states he woke up to sensation states she has intermittent symptoms in which she feels a pinching sensation in the right side of his ribs. Denies any abdominal point size and has not diarrhea constipation no shortness of breath no recent fevers or chills. Patient has no prior lung or cardiac disease does admit that he is a type I diabetic on insulin. Patient denies any trauma no rashes noted. - Related Data Home Medications Medication Instructions Recorded Confirmed Insulin Aspart [NovoLOG Flexpen] See Protocol SQ AC-TID 03/15/21 03/05/22 Insulin Detemir [Levemir Flextouch] 15 units SQ HS 03/15/21 03/05/22 Allergies Allergy/AdvReac Type Severity Reaction Status Date / Time No Known Allergies Allergy Verified 03/05/22 09:12 Review of Systems ROS Statement: Those systems with pertinent positive or pertinent negative responses have been documented in the HPI. ROS Other: All systems not noted in ROS Statement are negative. EKG Findings - EKG Comments: EKG Findings:: EKG performed at 8:25 sinus bradycardia with a rate of 53 [place] 142 QRS 99 QT/QTC 401/385 Past Medical History Past Medical History: Diabetes Mellitus Additional Past Medical History / Comment(s): IDDM type I diagnosed 2008 (no insulin pump), COVID 11/12 History of Any Multi-Drug Resistant Organisms: None Reported Past Surgical History: No Surgical Hx Reported Past Psychological History: No Psychological Hx Reported Smoking Status: Never smoker Past Alcohol Use History: None Reported, Occasional Past Drug Use History: None Reported, Marijuana - Past Family History Mother Family Medical History: Hyperlipidemia Additional Family Medical History / Comment(s): Elevated heart rate, RLS. Father Family Medical History: Coronary Artery Disease (CAD), Myocardial Infarction ([place]) Additional Family Medical History / Comment(s): Father had a [place] at the age of 50 yrs and has 2 coronary stents. General Exam Limitations: no limitations General appearance: alert, in no apparent distress Head exam: Present: atraumatic, normocephalic, normal inspection Eye exam: Present: normal appearance, PERRL, EOMI. Absent: scleral icterus, conjunctival injection, periorbital swelling ENT exam: Present: normal exam, mucous membranes moist Neck exam: Present: normal inspection. Absent: tenderness, meningismus, lymphadenopathy Respiratory exam: Present: normal lung sounds bilaterally, chest wall tenderness. Absent: respiratory distress, wheezes, rales, rhonchi, stridor Cardiovascular Exam: Present: regular rate, normal rhythm, normal heart sounds. Absent: systolic murmur, diastolic murmur, rubs, gallop, clicks GI/Abdominal exam: Present: soft, normal bowel sounds. Absent: distended, tenderness, guarding, rebound, rigid Course Vital Signs 03/05/22 03/05/22 03/05/22 08:12 08:57 09:19 Temperature 98.3 F Pulse Rate 55 L 57 L Pulse Rate [ 67 [place] ] Respiratory 18 18 Rate Blood Pressure 149/91 134/90 O2 Sat by Pulse 99 99 Oximetry 03/05/22 10:23 Temperature Pulse Rate 64 Pulse Rate [ [place] Tier ] Respiratory 18 Rate Blood Pressure 133/85 O2 Sat by Pulse 98 Oximetry Chest Pain MDM - MDM Labs EKG and chest x-ray unremarkable. Patient's had episodic chest wall pain. Patient does not have any evidence of cardiac disease no lung infection at this time. Patient discharged advised take anti-inflammatories return for any worsening changes symptoms. Disposition Clinical Impression: Chest wall pain Disposition: HOME SELF-CARE Condition: Stable Instructions (If sedation given, give patient instructions): Chest Pain (ED) Additional Instructions: Please return to the Emergency Department if symptoms worsen or any other concerns. Is patient prescribed a controlled substance at d/c from ED?: No Referrals: Av Bain MD [Primary Care Provider] - 1-2 days Time of Disposition: 10:44
[2022-03-05 09:06] LABS: Basophils # (A) 0.1 k/uL (0-0.2); Basophils % (A) 1 %; Eosinophils # (A) 0.1 k/uL (0-0.7); Eosinophils % (A) 1 %; HCT 44.5 % (39.0-53.0); HGB 14.7 gm/dL (13.0-17.5); Lymphocytes # (A) 1.3 k/uL (1.0-4.8); Lymphocytes % (A) 27 %; MCH 29.6 pg (25.0-35.0); MCV 89.6 fL (80.0-100.0); Mean Platelet Volume 8.5; Monocytes # (A) 0.3 k/uL (0-1.0); Monocytes % (A) 7 %; Neutrophils # (A) 2.9 k/uL (1.3-7.7); Neutrophils % (A) 62 %; Platelet Count 189 k/uL (150-450); RBC 4.97 m/uL (4.30-5.90); RDW 12.5 % (11.5-15.5); WBC 4.8 k/uL (3.8-10.6)
[2022-03-05 09:19] LABS: INR 0.9 (<1.2); Partial Thromboplastin Time 22.7 sec (22.0-30.0); Prothrombin Time 9.7 sec (9.0-12.0)
[2022-03-05 09:23] LABS: ALT 20 U/L (4-49); AST 19 U/L (17-59); African American GFR (CKD) >90 (>60 ml/min/1.73 sqM); Albumin 4.2 g/dL (3.5-5.0); Alkaline Phosphatase 71 U/L (38-126); Anion Gap 9 mmol/L; Blood Urea Nitrogen 15 mg/dL (9-20); Calcium 9.5 mg/dL (8.4-10.2); Carbon Dioxide 27 mmol/L (22-30); Chloride 102 mmol/L (98-107); Glucose 251 mg/dL (74-99); Lipase 36 U/L (23-300); Magnesium 1.9 mg/dL (1.6-2.3); Non-African American GFR(CKD) >90 (>60 ml/min/1.73 sqM); Potassium 4.2 mmol/L (3.5-5.1); Sodium 138 mmol/L (137-145); Total Bilirubin 1.1 mg/dL (0.2-1.3); Total Protein 7.2 g/dL (6.3-8.2)
--- NOTE | 2022-03-05 10:29 | XR ---
EXAMINATION TYPE: XR chest 2V DATE OF EXAM: 03/05/2022 COMPARISON: 11/26/2021 INDICATION: Chest pain TECHNIQUE: Frontal and lateral views of the chest are obtained. FINDINGS: The heart size is normal. The pulmonary vasculature is normal. The lungs are clear. Previous left lung infiltrate has resolved. IMPRESSION: 1. No acute pulmonary process.
[2022-03-05 11:27] VITALS: BP 134/88; PULSE 78; RESP 20
== END 2022-03-05 11:22 | disposition home or self-care (01) ==
LOC: EC 08:09
DX: R07.89 Other chest pain (principal); E11.9 Type 2 diabetes mellitus without complications; Z86.16 Personal history of COVID-19
CPT/HCPCS: 36415; 71046; 80053; 83690; 83735; 84484; 85025; 85379; 85610; 85730; 93005; 99285

== ENCOUNTER 2023-08-25 08:14 | Emergency (ER) | payer OTHER ==
--- NOTE | 2023-08-25 08:30 | ED ---
Extremity Problem HPI - General Chief complaint: Extremity Problem,Nontraumatic Stated complaint: numbness in hand and feet Time Seen by Provider: 08/25/23 08:19 Source: patient, RN notes reviewed Mode of arrival: ambulatory Limitations: no limitations - History of Present Illness Initial comments: This is a 38-year-old male who presents to the emergency department for numbness and tingling in his bilateral upper and lower extremities. States that he has type 1 diabetes, and has had problems with peripheral neuropathy in his feet. However, over the last 3 days it has got much worse and is now also in his hands. He does note that he has been unable to get his nighttime insulin for 4 days as he is waiting for his paycheck, which she does not get until 08/28. States that his blood sugar has been well controlled, and that it is usually been running around 160. Also states that he has felt fairly rundown over the last couple of days and is worried that he may be getting sick. They have tried him on gabapentin, however this made him feel very loopy, and he stopped taking it. He has since been taking [id number] vitamin B12, which he states had actually been making him feel much better in terms of the neuropathy. Denies any fevers, chills, sore throat, cough, dyspnea, chest pain, palpitations, abdominal pain, nausea, vomiting, diarrhea, or back pain. - Related Data Home Medications Medication Instructions Recorded Confirmed Insulin Aspart [NovoLOG Flexpen] See Protocol SQ AC-TID 03/15/21 03/05/22 Insulin Detemir [Levemir Flextouch] 15 units SQ HS 03/15/21 03/05/22 Allergies Allergy/AdvReac Type Severity Reaction Status Date / Time No Known Allergies Allergy Verified 08/25/23 08:18 Review of Systems ROS Statement: Those systems with pertinent positive or pertinent negative responses have been documented in the HPI. ROS Other: All systems not noted in ROS Statement are negative. Past Medical History Past Medical History: Diabetes Mellitus Additional Past Medical History / Comment(s): IDDM type I diagnosed 2008 (no insulin pump), COVID 11/12 History of Any Multi-Drug Resistant Organisms: None Reported Past Surgical History: No Surgical Hx Reported Past Psychological History: No Psychological Hx Reported Smoking Status: Never smoker Past Alcohol Use History: None Reported, Occasional Past Drug Use History: Marijuana - Past Family History Mother Family Medical History: Hyperlipidemia Additional Family Medical History / Comment(s): Elevated heart rate, RLS. Father Family Medical History: Coronary Artery Disease (CAD), Myocardial Infarction ([place]) Additional Family Medical History / Comment(s): Father had a [place] at the age of 50 yrs and has 2 coronary stents. General Exam Limitations: no limitations General appearance: alert, in no apparent distress Head exam: Present: atraumatic, normocephalic, normal inspection Respiratory exam: Present: normal lung sounds bilaterally. Absent: respiratory distress, wheezes, rales, rhonchi, stridor Cardiovascular Exam: Present: regular rate, normal rhythm, normal heart sounds. Absent: systolic murmur, diastolic murmur, rubs, gallop, clicks Neurological exam: Present: alert, oriented X3, CN II-XII intact, other (Sensation is equal and intact bilaterally to the upper and lower extremities.) Expanded Motor strength exam: RUE: 5, LUE: 5, RLE: 5, LLE: 5 Psychiatric exam: Present: normal affect, normal mood Skin exam: Present: warm, dry, intact, normal color. Absent: rash Course Vital Signs 08/25/23 08/25/23 08:16 10:06 Temperature 98.1 F 98.7 F Pulse Rate 49 L 73 Respiratory 16 17 Rate Blood Pressure 169/88 138/76 O2 Sat by Pulse 100 100 Oximetry Medical Decision Making - Medical Decision Making This is a 38-year-old male who presents to the emergency department for numbness and tingling in the bilateral upper and lower extremities. Was pt. sent in by a medical professional or institution? @ -No Did you speak to anyone other than the patient for history? @ -No Did you review nursing and triage notes? @ -Yes, and I agree, it is accurate with regards to the patient's symptoms. Were old charts reviewed? @ -No Differential Diagnosis? @ -Differential Peripheral neuropathy: Diabetic neuropathy, vitamin B12 deficiency, alcoholism, CVA/TIA, this is not meant to be an all-inclusive list. EKG interpreted by me (3pts min.)? @ -Not obtained X-rays interpreted by me (1pt min.)? @ -Not obtained CT interpreted by me (1pt min.)? @ -Not obtained U/S interpreted by me (1pt. min.)? @ -Not obtained What testing was considered but not performed? (CT, X-rays, U/S, labs)? Why? @ -None What meds were considered but not given? Why? @ -None Did you discuss the management of the patient with other professionals? @ -No Did you reconcile home meds? @ -No Was smoking cessation discussed for >3mins.? @ -No Was critical care preformed (if so, how long)? @ -No Were there social determinants of health that impacted care today? How? (Homelessness, low income, unemployed, alcoholism, drug addiction, transportation, low edu. Level, literacy, decrease access to med. care, nursing home, rehab)? @ -No Was there de-escalation of care discussed even if they declined? (Discuss DNR or withdrawal of care, Hospice)? @ -No What co-morbidities impacted this encounter? (DM, HTN, Smoking, COPD, CAD, Cancer, CVA, Hep., AIDS, mental health diagnosis, sleep apnea, morbid obesity)? @ -DM Was patient admitted / discharged? @ -Discharged. Lab work obtained revealing a blood sugar of 253. There was no evidence of acidosis or other findings to suggest DKA. Discussed with the patient that it is very possible that this is related to advancement of the diabetes. Advised he discussed with his primary care provider the financial difficulties associated with his current prescription, and see if he can be started on something more affordable or if there is some way he can be set up with prescription savings programs. Discussed risks for progressive neuropathy if he continues to have elevated blood sugar and cannot take his prescribed medication. Patient expresses understanding and was discharged home in stable condition. Undiagnosed new problem with uncertain prognosis? @ -None Drug Therapy requiring intensive monitoring for toxicity (Heparin, Nitro, Insulin, Cardizem)? @ -None Were any procedures done? @ -None Diagnosis/symptom? @ -Peripheral neuropathy Acute, or Chronic, or Acute on Chronic? @ -Chronic Uncomplicated (without systemic symptoms) or Complicated (systemic symptoms)? @ -Uncomplicated Side effects of treatment? @ -None Exacerbation, Progression, or Severe Exacerbation] @ -Exacerbation vs progression Poses a threat to life or bodily function? @ -No Return precautions reviewed in depth, the patient is instructed to return to the emergency department with any new, worsening, or concerning symptoms. Patient verbalized understanding. This case was discussed in detail with the attending ED physician, Dr. Rosario. Presentation, findings, and treatment plan discussed in detail as well. - Lab Data Result diagrams: 08/25/23 08:52 08/25/23 08:52 Lab Results 08/25/23 08/25/23 08/25/23 Range/Units 08:52 08:52 08:52 WBC 5.3 (3.8-10.6) k/uL RBC 4.52 (4.30-5.90) m/uL Hgb 14.1 (13.0-17.5) gm/dL Hct 41.8 (39.0-53.0) % MCV 92.4 (80.0-100.0) fL MCH 31.1 (25.0-35.0) pg MCHC 33.7 (31.0-37.0) g/dL RDW 12.7 (11.5-15.5) % Plt Count 184 (150-450) k/uL MPV 9.7 Neutrophils % 67 % Lymphocytes % 24 % Monocytes % 6 % Eosinophils % 1 % Basophils % 0 % Neutrophils # 3.6 (1.3-7.7) k/uL Lymphocytes # 1.3 (1.0-4.8) k/uL Monocytes # 0.3 (0-1.0) k/uL Eosinophils # 0.1 (0-0.7) k/uL Basophils # 0.0 (0-0.2) k/uL Sodium 137 (137-145) mmol/L Potassium 4.5 (3.5-5.1) mmol/L Chloride 102 (98-107) mmol/L Carbon Dioxide 29 (22-30) mmol/L Anion Gap 6 mmol/L BUN 13 (9-20) mg/dL Creatinine 0.66 (0.66-1.25) mg/dL Est GFR (CKD-EPI)AfAm >90 (>60 ml/min/1.73 sqM) Est GFR (CKD-EPI)NonAf >90 (>60 ml/min/1.73 sqM) Glucose 253 H (74-99) mg/dL Calcium 9.5 (8.4-10.2) mg/dL Magnesium 1.9 (1.6-2.3) mg/dL Total Bilirubin 0.7 (0.2-1.3) mg/dL AST 37 (17-59) U/L ALT 36 (4-49) U/L Alkaline Phosphatase 73 (38-126) U/L Total Protein 6.9 (6.3-8.2) g/dL Albumin 4.1 (3.5-5.0) g/dL TSH 1.310 (0.465-4.680) mIU/L Influenza Type A (PCR) Not Detected (Not Detectd) Influenza Type B (PCR) Not Detected (Not Detectd) RSV (PCR) Not Detected (Not Detectd) SARS-CoV-2 (PCR) Not Detected (Not Detectd) Disposition Clinical Impression: Peripheral neuropathy Disposition: HOME SELF-CARE Instructions (If sedation given, give patient instructions): Peripheral Neuropathy (ED) Additional Instructions: Return to the emergency department with any new, worsening, or concerning symptoms. Continue taking [id number] vitamin B12. Resume taking your nighttime insulin as soon as you are able to. Follow up with your primary care provider in 1-2 days. Is patient prescribed a controlled substance at d/c from ED?: No Referrals: Av Bain MD [Primary Care Provider] - 1-2 days
[2023-08-25 09:18] LABS: Basophils % (A) 0 %; Eosinophils # (A) 0.1 k/uL (0-0.7); Eosinophils % (A) 1 %; HCT 41.8 % (39.0-53.0); HGB 14.1 gm/dL (13.0-17.5); Lymphocytes # (A) 1.3 k/uL (1.0-4.8); Lymphocytes % (A) 24 %; MCH 31.1 pg (25.0-35.0); MCHC 33.7 g/dL (31.0-37.0); MCV 92.4 fL (80.0-100.0); Mean Platelet Volume 9.7; Monocytes # (A) 0.3 k/uL (0-1.0); Monocytes % (A) 6 %; Neutrophils # (A) 3.6 k/uL (1.3-7.7); Neutrophils % (A) 67 %; Platelet Count 184 k/uL (150-450); RBC 4.52 m/uL (4.30-5.90); RDW 12.7 % (11.5-15.5); WBC 5.3 k/uL (3.8-10.6)
[2023-08-25 09:30] LABS: ALT 36 U/L (4-49); AST 37 U/L (17-59); African American GFR (CKD) >90 (>60 ml/min/1.73 sqM); Albumin 4.1 g/dL (3.5-5.0); Alkaline Phosphatase 73 U/L (38-126); Anion Gap 6 mmol/L; Blood Urea Nitrogen 13 mg/dL (9-20); Calcium 9.5 mg/dL (8.4-10.2); Carbon Dioxide 29 mmol/L (22-30); Chloride 102 mmol/L (98-107); Glucose 253 mg/dL (74-99); Magnesium 1.9 mg/dL (1.6-2.3); Non-African American GFR(CKD) >90 (>60 ml/min/1.73 sqM); Potassium 4.5 mmol/L (3.5-5.1); Sodium 137 mmol/L (137-145); Total Bilirubin 0.7 mg/dL (0.2-1.3); Total Protein 6.9 g/dL (6.3-8.2)
[2023-08-25 10:16] VITALS: BP 138/76; PULSE 73; RESP 17; TEMP 98.7
== END 2023-08-25 10:18 | disposition home or self-care (01) ==
LOC: EC 08:14
DX: G90.09 Other idiopathic peripheral autonomic neuropathy (principal); E10.42 Type 1 diabetes mellitus with diabetic polyneuropathy; F12.90 Cannabis use, unspecified, uncomplicated; Z86.16 Personal history of COVID-19; Z79.4 Long term (current) use of insulin; Z20.822 Contact with and (suspected) exposure to COVID-19
CPT/HCPCS: 36415; 80053; 83735; 84443; 85025; 87636; 99284

== ENCOUNTER 2023-11-12 11:03 | Emergency (ER) | payer OTHER ==
[2023-11-12 11:47] VITALS: RESP 18
--- NOTE | 2023-11-12 12:31 | ED ---
General Adult HPI - General Chief complaint: Extremity Injury, Lower Stated complaint: leg pain Time Seen by Provider: 11/12/23 12:19 Source: patient, RN notes reviewed, old records reviewed Mode of arrival: ambulatory Limitations: no limitations - History of Present Illness Initial comments: 38-year-old male history of type 1 diabetes presenting with bilateral lower extremity pain and cramping. Patient states his symptoms have been present for many months. He's been seen by his primary care provider and his neurologist. He states he had peripheral nerve testing done. He states he was prescribed gabapentin but has not been taking this medication because it made him feel somewhat lightheaded. He denies any injury. Denies fever. Denies chest pain or dyspnea. - Related Data Home Medications Medication Instructions Recorded Confirmed Insulin Aspart [NovoLOG Flexpen] See Protocol SQ AC-TID 03/15/21 03/05/22 Insulin Detemir [Levemir Flextouch] 15 units SQ HS 03/15/21 03/05/22 Allergies Allergy/AdvReac Type Severity Reaction Status Date / Time No Known Allergies Allergy Verified 11/12/23 11:29 Review of Systems ROS Statement: Those systems with pertinent positive or pertinent negative responses have been documented in the HPI. ROS Other: All systems not noted in ROS Statement are negative. Past Medical History Past Medical History: Diabetes Mellitus Additional Past Medical History / Comment(s): IDDM type I diagnosed 2008 (no insulin pump), COVID 11/12 History of Any Multi-Drug Resistant Organisms: None Reported Past Surgical History: No Surgical Hx Reported Past Psychological History: No Psychological Hx Reported Smoking Status: Never smoker Past Alcohol Use History: None Reported, Occasional Past Drug Use History: Marijuana - Past Family History Mother Family Medical History: Hyperlipidemia Additional Family Medical History / Comment(s): Elevated heart rate, RLS. Father Family Medical History: Coronary Artery Disease (CAD), Myocardial Infarction ([place] ) Additional Family Medical History / Comment(s): Father had a [place] at the age of 50 yrs and has 2 coronary stents. General Exam Limitations: no limitations General appearance: alert, in no apparent distress Head exam: Present: atraumatic, normocephalic Eye exam: Present: normal appearance, PERRL ENT exam: Present: mucous membranes moist Respiratory exam: Present: normal lung sounds bilaterally. Absent: respiratory distress, wheezes Cardiovascular Exam: Present: regular rate, normal rhythm GI/Abdominal exam: Present: soft. Absent: distended, tenderness, guarding Extremities exam: Present: normal inspection, normal capillary refill. Absent: pedal edema, joint swelling, calf tenderness Neurological exam: Present: alert, oriented X3, CN II-XII intact. Absent: motor sensory deficit Psychiatric exam: Present: normal affect, normal mood Skin exam: Present: warm, dry, intact. Absent: cyanosis, diaphoretic Course Vital Signs 11/12/23 11/12/23 11:27 12:22 Temperature 98.4 F Pulse Rate 82 74 Respiratory 18 18 Rate Blood Pressure 137/69 136/81 O2 Sat by Pulse 99 98 Oximetry Medical Decision Making - Medical Decision Making Was pt. sent in by a medical professional or institution (NIKI Retana, CLINICAL SPECIALIST, urgent care, hospital, or [facility]...) When possible be specific @ -No Did you speak to anyone other than the patient for history (EMS, parent, family, police, friend...)? What history was obtained from this source @ -No Did you review nursing and triage notes (agree or disagree)? Why? @ -I reviewed and agree with nursing and triage notes Were old charts reviewed (outside hosp., previous admission, EMS record, old EKG, old radiological studies, urgent care reports/EKG's, [facility] records)? Report findings @ -No old charts were reviewed Differential Diagnosis (chest pain, altered mental status, abdominal pain women, abdominal pain men, vaginal bleeding, weakness, fever, dyspnea, syncope, headache, dizziness, GI bleed, back pain, seizure, CVA, palpatations, mental health, musculoskeletal)? @ -[Electrolyte abnormality, peripheral neuropathy EKG interpreted by me (3pts min.). @ -As above X-rays interpreted by me (1pt min.). @ -None done CT interpreted by me (1pt min.). @ -None done U/S interpreted by me (1pt. min.). @ -None done What testing was considered but not performed or refused? (CT, X-rays, U/S, labs)? Why? @ -None What meds were considered but not given or refused? Why? @ -None Did you discuss the management of the patient with other professionals (professionals i.e. NIKI Retana, CLINICAL SPECIALIST, lab, RT, psych nurse, social media community manager, corporate lawyer, teacher, tactical deception plans officer, showcase trimmer)? Give summary @ -No Was smoking cessation discussed for >3mins.? @ -No Was critical care preformed (if so, how long)? @ -No Were there social determinants of health that impacted care today? How? (Homelessness, low income, unemployed, alcoholism, drug addiction, transportation, low edu. Level, literacy, decrease access to med. care, snf, rehab)? @ -No Was there de-escalation of care discussed even if they declined (Discuss DNR or withdrawal of care, Hospice)? DNR status @ -No What co-morbidities impacted this encounter? (DM, HTN, Smoking, COPD, CAD, Cancer, CVA, ARF, Chemo, Hep., AIDS, mental health diagnosis, sleep apnea, morbid obesity)? @ Type I diabetic Was patient admitted / discharged? Hospital course, mention meds given and route, prescriptions, significant lab abnormalities, going to OR and other pertinent info. @ -[38-year-old male with type 1 diabetes who has complained of bilateral leg pain for the past several months. He's been seen by his primary care and his neurologist. Symptoms persist. His physical exam is unremarkable, legs are warm with normal cap refill no swelling no tenderness to palpation, no erythema. I did obtain laboratory testing on this patient he has normal CBC, normal CMP with the exception of elevated blood glucose at 340. No signs of DKA. Normal potassium, normal magnesium. Patient is instructed to follow with his primary care provider regarding continuous glucose monitor and an insulin pump for tighter blood glucose control. Stable for continued outpatient follow-up. Undiagnosed new problem with uncertain prognosis? @ -No Drug Therapy requiring intensive monitoring for toxicity (Heparin, Nitro, Insulin, Cardizem)? @ -No] Were any procedures done? @ -[No] Diagnosis/symptom? @ -[Hyperglycemia, leg pain Acute, or Chronic, or Acute on Chronic? @ -[Chronic Uncomplicated (without systemic symptoms) or Complicated (systemic symptoms)? @ -[default] Side effects of treatment? @ -[No] Exacerbation, Progression, or Severe Exacerbation? @ -[No] Poses a threat to life or bodily function? How? (Chest pain, [place], [place], pneumonia, PE, COPD, DKA, ARF, appy, cholecystitis, CVA, Diverticulitis, Homicidal, Suicidal, threat to staff... and all critical care pts) @ -[Low risk at this time - Lab Data Result diagrams: 11/12/23 12:42 11/12/23 12:42 Lab Results 11/12/23 11/12/23 Range/Units 12:42 12:42 WBC 6.4 (3.8-10.6) k/uL RBC 4.74 (4.30-5.90) m/uL Hgb 14.4 (13.0-17.5) gm/dL Hct 42.4 (39.0-53.0) % MCV 89.5 (80.0-100.0) fL MCH 30.3 (25.0-35.0) pg MCHC 33.9 (31.0-37.0) g/dL RDW 12.2 (11.5-15.5) % Plt Count 182 (150-450) k/uL MPV 8.7 Neutrophils % 69 % Lymphocytes % 23 % Monocytes % 5 % Eosinophils % 1 % Basophils % 1 % Neutrophils # 4.4 (1.3-7.7) k/uL Lymphocytes # 1.5 (1.0-4.8) k/uL Monocytes # 0.3 (0-1.0) k/uL Eosinophils # 0.1 (0-0.7) k/uL Basophils # 0.0 (0-0.2) k/uL Sodium 137 (137-145) mmol/L Potassium 4.6 (3.5-5.1) mmol/L Chloride 99 (98-107) mmol/L Carbon Dioxide 29 (22-30) mmol/L Anion Gap 9 mmol/L BUN 20 (9-20) mg/dL Creatinine 0.64 L (0.66-1.25) mg/dL Est GFR (CKD-EPI)AfAm >90 (>60 ml/min/1.73 sqM) Est GFR (CKD-EPI)NonAf >90 (>60 ml/min/1.73 sqM) Glucose 344 H (74-99) mg/dL Calcium 9.5 (8.4-10.2) mg/dL Magnesium 1.9 (1.6-2.3) mg/dL Total Bilirubin 0.8 (0.2-1.3) mg/dL AST 19 (17-59) U/L ALT 19 (4-49) U/L Alkaline Phosphatase 85 (38-126) U/L Total Protein 7.1 (6.3-8.2) g/dL Albumin 4.3 (3.5-5.0) g/dL Disposition Clinical Impression: Leg pain, Hyperglycemia Disposition: HOME SELF-CARE Condition: Fair Instructions (If sedation given, give patient instructions): Diabetic Hyperglycemia (ED) Is patient prescribed a controlled substance at d/c from ED?: No Referrals: Av Bain MD [Primary Care Provider] - 1-2 days Justin Vu MD [REFERRING] - 1-2 days Wero Anthony MD [STAFF PHYSICIAN] - 1-2 days Time of Disposition: 13:51
[2023-11-12 13:34] LABS: Basophils % (A) 1 %; Eosinophils # (A) 0.1 k/uL (0-0.7); Eosinophils % (A) 1 %; HCT 42.4 % (39.0-53.0); HGB 14.4 gm/dL (13.0-17.5); Lymphocytes # (A) 1.5 k/uL (1.0-4.8); Lymphocytes % (A) 23 %; MCH 30.3 pg (25.0-35.0); MCHC 33.9 g/dL (31.0-37.0); MCV 89.5 fL (80.0-100.0); Mean Platelet Volume 8.7; Monocytes # (A) 0.3 k/uL (0-1.0); Monocytes % (A) 5 %; Neutrophils # (A) 4.4 k/uL (1.3-7.7); Neutrophils % (A) 69 %; Platelet Count 182 k/uL (150-450); RBC 4.74 m/uL (4.30-5.90); RDW 12.2 % (11.5-15.5); WBC 6.4 k/uL (3.8-10.6)
[2023-11-12 13:43] LABS: ALT 19 U/L (4-49); AST 19 U/L (17-59); African American GFR (CKD) >90 (>60 ml/min/1.73 sqM); Albumin 4.3 g/dL (3.5-5.0); Alkaline Phosphatase 85 U/L (38-126); Anion Gap 9 mmol/L; Blood Urea Nitrogen 20 mg/dL (9-20); Calcium 9.5 mg/dL (8.4-10.2); Carbon Dioxide 29 mmol/L (22-30); Chloride 99 mmol/L (98-107); Glucose 344 mg/dL (74-99); Magnesium 1.9 mg/dL (1.6-2.3); Non-African American GFR(CKD) >90 (>60 ml/min/1.73 sqM); Potassium 4.6 mmol/L (3.5-5.1); Sodium 137 mmol/L (137-145); Total Bilirubin 0.8 mg/dL (0.2-1.3); Total Protein 7.1 g/dL (6.3-8.2)
[2023-11-12 14:18] VITALS: BP 126/84; PULSE 79; TEMP 98.1
== END 2023-11-12 14:13 | disposition home or self-care (01) ==
LOC: EC 11:03
DX: M79.605 Pain in left leg (principal); M79.604 Pain in right leg; E10.65 Type 1 diabetes mellitus with hyperglycemia; F12.90 Cannabis use, unspecified, uncomplicated; Z79.4 Long term (current) use of insulin; Z86.16 Personal history of COVID-19
CPT/HCPCS: 36415; 80053; 83735; 85025; 99283

== ENCOUNTER 2023-11-29 12:05 | Emergency (ER) | payer OTHER ==
[2023-11-29] MEDS ORDERED: METOCLOPRAMIDE 5 MG/ML 2 ML VIAL IVP STA (12:55)
[2023-11-29] MEDS ORDERED: SODIUM CHLORIDE 0.9% 1,000 ML IV STA (12:55)
--- NOTE | 2023-11-29 13:06 | ED ---
General Adult HPI - General Chief complaint: Dizziness Stated complaint: left leg numbness,dizzieness Time Seen by Provider: 11/29/23 12:10 Source: patient Mode of arrival: ambulatory - History of Present Illness Initial comments: Dictation was produced using [employer] dictation software. please excuse any grammatical, word or spelling errors. Chief Complaint: 38-year-old type I diabetic presents to the ER for headache, dizziness and paresthesias to the left lower extremity History of Present Illness: Patient is a 38-year-old male presents emergency department for one day of lightheadedness, generalized weakness chest pain, headache and left lower extremity paresthesias. Patient is type I diabetic he is insulin-dependent. Denies any fever, chills or night sweats. States that his headache is reportedly severe RVs had headaches like this in the past. He is told that he had vertigo when seen at an outside emergency Department months ago. Patient states that he is having difficulty walking. The ROS documented in this emergency department record has been reviewed and confirmed by me. Those systems with pertinent positive or negative responses have been documented in the HPI. All other systems are other negative and/or noncontributory. - Related Data Home Medications Medication Instructions Recorded Confirmed Insulin Aspart [NovoLOG Flexpen] See Protocol SQ AC-TID 03/15/21 03/05/22 Insulin Detemir [Levemir Flextouch] 15 units SQ HS 03/15/21 03/05/22 Allergies Allergy/AdvReac Type Severity Reaction Status Date / Time No Known Allergies Allergy Verified 11/29/23 12:11 Review of Systems ROS Statement: Those systems with pertinent positive or pertinent negative responses have been documented in the HPI. ROS Other: All systems not noted in ROS Statement are negative. Past Medical History Past Medical History: Diabetes Mellitus Additional Past Medical History / Comment(s): IDDM type I diagnosed 2008 (no insulin pump), COVID 11/12 History of Any Multi-Drug Resistant Organisms: None Reported Past Surgical History: No Surgical Hx Reported Past Psychological History: No Psychological Hx Reported Smoking Status: Never smoker Past Alcohol Use History: None Reported Past Drug Use History: None Reported - Past Family History Mother Family Medical History: Hyperlipidemia Additional Family Medical History / Comment(s): Elevated heart rate, RLS. Father Family Medical History: Coronary Artery Disease (CAD), Myocardial Infarction ([place]) Additional Family Medical History / Comment(s): Father had a [place] at the age of 50 yrs and has 2 coronary stents. General Exam - General Exam Comments Initial Comments: PHYSICAL EXAM: General Impression: Alert and oriented x3, not in acute distress HEENT: Normocephalic atraumatic, extra-ocular movements intact, pupils equal and reactive to light bilaterally, mucous membranes moist. Cardiovascular: Heart regular rate and rhythm Chest: Able to complete full sentences, no retractions, no tachypnea Abdomen: abdomen soft, non-tender, non-distended, no organomegaly Musculoskeletal: Pulses present and equal in all extremities, no peripheral edema Motor: no focal deficits noted Neurological: CN II-XII grossly intact, no focal motor or sensory deficits noted, normal gait, no extremity ataxia Skin: Intact with no visualized rashes Psych: Normal affect and mood Course Vital Signs 11/29/23 11/29/23 11/29/23 12:08 13:09 14:00 Temperature 98.3 F 98.0 F Pulse Rate 57 L 62 63 Respiratory 18 18 20 Rate Blood Pressure 164/89 150/94 144/94 O2 Sat by Pulse 100 99 100 Oximetry Medical Decision Making - Medical Decision Making My EKG interpretation: Ventricular rate 58, sinus bradycardia,. 156, QS 97, QTC 397. No VT prolongation, no QTC prolongation, no ST or T-wave changes noted. Overall, this EKG is unremarkable Was pt. sent in by a medical professional or institution ([facility], SHE[employer] WORK[employer] SUPERVISOR, urgent care, hospital, or custodial...) When possible be specific @ -No Did you speak to anyone other than the patient for history (EMS, parent, family, police, friend...)? What history was obtained from this source @ -No Did you review nursing and triage notes (agree or disagree)? Why? @ -I reviewed and agree with nursing and triage notes Were old charts reviewed (outside hosp., previous admission, EMS record, old EKG, old radiological studies, urgent care reports/EKG's, custodial records)? Report findings @ -No old charts were reviewed Differential Diagnosis (chest pain, altered mental status, abdominal pain women, abdominal pain men, vaginal bleeding, musculoskeletal, weakness, fever, dyspnea, syncope, headache, dizziness, GI bleed, back pain, seizure, CVA, palpatations, mental health)? @ -Differential Dizziness: Benign paroxysmal positional Vertigo, Menieres disease, otitis media, acoustic neuroma, vertebrobasilar insufficiency, cerebellar stroke, encephalitis, hypovolemic, arrhythmia, coronary artery syndrome, anemia, this is not meant to be an all-inclusive list EKG interpreted by me (3pts min.). @ -See above X-rays interpreted by me (1pt min.). @ -None done CT interpreted by me (1pt min.). @ -None done U/S interpreted by me (1pt. min.). @ -None done What testing was considered but not performed or refused? (CT, X-rays, U/S, labs)? Why? @ -None What meds were considered but not given or refused? Why? @ -None Did you discuss the management of the patient with other professionals (professionals i.e. , PA, SHEET [employer] WORKER SUPERVISOR, lab, RT, psych nurse, social service director, car distributor, teacher, legal compliance officer, home health care case manager)? Give summary @ -No Was smoking cessation discussed for >3mins.? @ -No Was critical care preformed (if so, how long)? @ -No Were there social determinants of health that impacted care today? How? (Homelessness, low income, unemployed, alcoholism, drug addiction, transportation, low edu. Level, literacy, decrease access to med. care, usp, rehab)? @ -No Was there de-escalation of care discussed even if they declined (Discuss DNR or withdrawal of care, Hospice)? DNR status @ -No What co-morbidities impacted this encounter? (DM, HTN, Smoking, COPD, CAD, Cancer, CVA, ARF, Chemo, Hep., AIDS, mental health diagnosis, sleep apnea, morbid obesity)? @ -None Was patient admitted / discharged? Hospital course, mention meds given and route, prescriptions, significant lab abnormalities, going to OR and other pertinent info. @ -38 yo diabetic male presents to the ER for dizziness, chest pain, headache and paresthesias to the left lower extremity. Vital signs stable. Neurologic exam is benign. Physical examination is benign. Patient acute distress. Lab oratory evaluation is unremarkable. Viral testing negative. EKG is negative. Patient reevaluated at bedside from been stable medical condition. This point is unclear what is causing patient's symptoms however he has no high-risk features. Patient discharged told to follow-up with primary care doctor. Undiagnosed new problem with uncertain prognosis? @ -No Drug Therapy requiring intensive monitoring for toxicity (Heparin, Nitro, Insulin, Cardizem)? @ -No Were any procedures done? @ -No Diagnosis/symptom? Acute, or Chronic, or Acute on Chronic? Uncomplicated (without systemic symptoms) or Complicated (systemic symptoms)? @ -Dizziness Side effects of treatment? @ -No Exacerbation, Progression, or Severe Exacerbation? @ -No Poses a threat to life or bodily function? How? (Chest pain, [place], CO, pneumonia, PE, COPD, DKA, ARF, appy, cholecystitis, CVA, Diverticulitis, Homicidal, Suicidal, threat to staff... and all critical care pts) @ -No - Lab Data Result diagrams: 11/29/23 13:12 11/29/23 13:12 Lab Results 11/29/23 11/29/23 11/29/23 Range/Units 13:12 13:12 13:12 WBC 5.4 (3.8-10.6) k/uL RBC 4.73 (4.30-5.90) m/uL Hgb 14.2 (13.0-17.5) gm/dL Hct 41.8 (39.0-53.0) % MCV 88.4 (80.0-100.0) fL MCH 30.0 (25.0-35.0) pg MCHC 33.9 (31.0-37.0) g/dL RDW 12.9 (11.5-15.5) % Plt Count 204 (150-450) k/uL MPV 9.6 Neutrophils % 68 % Lymphocytes % 24 % Monocytes % 4 % Eosinophils % 1 % Basophils % 1 % Neutrophils # 3.7 (1.3-7.7) k/uL Lymphocytes # 1.3 (1.0-4.8) k/uL Monocytes # 0.2 (0-1.0) k/uL Eosinophils # 0.1 (0-0.7) k/uL Basophils # 0.0 (0-0.2) k/uL PT 10.2 (10.0-12.5) sec INR 0.9 (<1.2) APTT 23.3 (22.0-30.0) sec Sodium 140 (137-145) mmol/L Potassium 4.5 (3.5-5.1) mmol/L Chloride 103 (98-107) mmol/L Carbon Dioxide 28 (22-30) mmol/L Anion Gap 9 mmol/L BUN 18 (9-20) mg/dL Creatinine 0.70 (0.66-1.25) mg/dL Est GFR (CKD-EPI)AfAm >90 (>60 ml/min/1.73 sqM) Est GFR (CKD-EPI)NonAf >90 (>60 ml/min/1.73 sqM) Glucose 149 H (74-99) mg/dL Plasma Lactic Acid Homar (0.7-2.0) mmol/L Calcium 9.7 (8.4-10.2) mg/dL Magnesium 1.9 (1.6-2.3) mg/dL Total Bilirubin 0.9 (0.2-1.3) mg/dL AST 26 (17-59) U/L ALT 31 (4-49) U/L Alkaline Phosphatase 69 (38-126) U/L Total Protein 7.4 (6.3-8.2) g/dL Albumin 4.4 (3.5-5.0) g/dL Influenza Type A (PCR) (Not Detectd) Influenza Type B (PCR) (Not Detectd) RSV (PCR) (Not Detectd) SARS-CoV-2 (PCR) (Not Detectd) 11/29/23 11/29/23 Range/Units 13:12 13:12 WBC (3.8-10.6) k/uL RBC (4.30-5.90) m/uL Hgb (13.0-17.5) gm/dL Hct (39.0-53.0) % MCV (80.0-100.0) fL MCH (25.0-35.0) pg MCHC (31.0-37.0) g/dL RDW (11.5-15.5) % Plt Count (150-450) k/uL MPV Neutrophils % % Lymphocytes % % Monocytes % % Eosinophils % % Basophils % % Neutrophils # (1.3-7.7) k/uL Lymphocytes # (1.0-4.8) k/uL Monocytes # (0-1.0) k/uL Eosinophils # (0-0.7) k/uL Basophils # (0-0.2) k/uL PT (10.0-12.5) sec INR (<1.2) APTT (22.0-30.0) sec Sodium (137-145) mmol/L Potassium (3.5-5.1) mmol/L Chloride (98-107) mmol/L Carbon Dioxide (22-30) mmol/L Anion Gap mmol/L BUN (9-20) mg/dL Creatinine (0.66-1.25) mg/dL Est GFR (CKD-EPI)AfAm (>60 ml/min/1.73 sqM) Est GFR (CKD-EPI)NonAf (>60 ml/min/1.73 sqM) Glucose (74-99) mg/dL Plasma Lactic Acid Homar 1.0 (0.7-2.0) mmol/L Calcium (8.4-10.2) mg/dL Magnesium (1.6-2.3) mg/dL Total Bilirubin (0.2-1.3) mg/dL AST (17-59) U/L ALT (4-49) U/L Alkaline Phosphatase (38-126) U/L Total Protein (6.3-8.2) g/dL Albumin (3.5-5.0) g/dL Influenza Type A (PCR) Not Detected (Not Detectd) Influenza Type B (PCR) Not Detected (Not Detectd) RSV (PCR) Not Detected (Not Detectd) SARS-CoV-2 (PCR) Not Detected (Not Detectd) Disposition Clinical Impression: Dizziness Disposition: HOME SELF-CARE Condition: Fair Instructions (If sedation given, give patient instructions): Dizziness (ED) Is patient prescribed a controlled substance at d/c from ED?: No Referrals: Av Bain MD [Primary Care Provider] - 1-2 days Time of Disposition: 15:09
[2023-11-29 14:07] LABS: Basophils % (A) 1 %; Eosinophils # (A) 0.1 k/uL (0-0.7); Eosinophils % (A) 1 %; HCT 41.8 % (39.0-53.0); HGB 14.2 gm/dL (13.0-17.5); Lymphocytes # (A) 1.3 k/uL (1.0-4.8); Lymphocytes % (A) 24 %; MCHC 33.9 g/dL (31.0-37.0); MCV 88.4 fL (80.0-100.0); Mean Platelet Volume 9.6; Monocytes # (A) 0.2 k/uL (0-1.0); Monocytes % (A) 4 %; Neutrophils # (A) 3.7 k/uL (1.3-7.7); Neutrophils % (A) 68 %; Platelet Count 204 k/uL (150-450); RBC 4.73 m/uL (4.30-5.90); RDW 12.9 % (11.5-15.5); WBC 5.4 k/uL (3.8-10.6)
[2023-11-29 14:18] LABS: INR 0.9 (<1.2); Partial Thromboplastin Time 23.3 sec (22.0-30.0); Prothrombin Time 10.2 sec (10.0-12.5)
[2023-11-29 14:29] LABS: ALT 31 U/L (4-49); AST 26 U/L (17-59); African American GFR (CKD) >90 (>60 ml/min/1.73 sqM); Albumin 4.4 g/dL (3.5-5.0); Alkaline Phosphatase 69 U/L (38-126); Anion Gap 9 mmol/L; Blood Urea Nitrogen 18 mg/dL (9-20); Calcium 9.7 mg/dL (8.4-10.2); Carbon Dioxide 28 mmol/L (22-30); Chloride 103 mmol/L (98-107); Glucose 149 mg/dL (74-99); Magnesium 1.9 mg/dL (1.6-2.3); Non-African American GFR(CKD) >90 (>60 ml/min/1.73 sqM); Potassium 4.5 mmol/L (3.5-5.1); Sodium 140 mmol/L (137-145); Total Bilirubin 0.9 mg/dL (0.2-1.3); Total Protein 7.4 g/dL (6.3-8.2)
[2023-11-29 14:32] VITALS: BP 144/94
[2023-11-29 15:37] VITALS: PULSE 58; RESP 18; TEMP 97.9
== END 2023-11-29 15:31 | disposition home or self-care (01) ==
LOC: EC 12:05
DX: R42 Dizziness and giddiness (principal); R00.1 Bradycardia, unspecified; E10.9 Type 1 diabetes mellitus without complications; Z79.4 Long term (current) use of insulin; Z20.822 Contact with and (suspected) exposure to COVID-19; Z86.16 Personal history of COVID-19
CPT/HCPCS: 36415; 93005; 80053; 83605; 83735; 85025; 85610; 85730; 87636; 99284; 96374; 96361; J2765

== ENCOUNTER → 2024-03-01 | Outpatient (CLI) | payer OTHER ==
[2024-03-01 16:24] LABS: Basophils # (A) 0.04 X 10*3/uL (0.00-0.10); Basophils % (A) 0.8 %; Eosinophils # (A) 0.05 X 10*3/uL (0.04-0.35); HCT 41.2 % (39.6-50.0); HGB 13.8 g/dL (13.0-17.0); Lymphocytes # (A) 1.56 X 10*3/uL (0.90-5.00); Lymphocytes % (A) 32.6 %; MCH 30.2 pg (27.0-32.0); MCHC 33.5 g/dL (32.0-37.0); MCV 90.2 FL (80.0-97.0); Mean Platelet Volume 11.8 FL (9.5-12.2); Monocytes # (A) 0.36 X 10*3/uL (0.20-1.00); Monocytes % (A) 7.5 %; NRBC Per 100 WBC 0 X 10*3/uL (0.00-0.01); Neutrophils # (A) 2.75 X 10*3/uL (1.80-7.70); Neutrophils % (A) 57.7 %; Platelet Count 199 X 10*3/uL (140-440); RBC 4.57 X 10*6/uL (4.40-5.60); RDW 12.2 % (11.5-14.5); WBC 4.78 X 10*3/uL (4.50-10.00)
[2024-03-01 16:30] LABS: ALT 32 U/L (10-49); AST 20 U/L (14-35); Albumin 4.5 g/dL (3.8-4.9); Albumin/Globulin Ratio 1.67 Ratio (1.60-3.17); Alkaline Phosphatase 74 U/L (41-126); BUN/Creat Ratio 18.25 Ratio (12.00-20.00); Blood Urea Nitrogen 14.6 mg/dL (9.0-27.0); Carbon Dioxide 25.4 mmol/L (21.6-31.8); Chloride 101 mmol/L (96-109); Chol/HDL Ratio 2.45 Ratio; Globulin 2.7 g/dL (1.6-3.3); Glucose 293 mg/dL (70-110); LDL Cholesterol,Calculated 111.3 mg/dL (0.0-131.0); Magnesium 1.8 mg/dL (1.5-2.4); Sodium 137 mmol/L (135-145); Total Bilirubin 0.8 mg/dL (0.3-1.2); Total Protein 7.2 g/dL (6.2-8.2)
[2024-03-01 19:40] LABS: Microalbumin Creatinine Ratio <25 mg/g Cr (0-30); Urine Creatinine 47.2 mg/dL (39.0-259.0)
== END | disposition home or self-care (01) ==
LOC: LABWHC1 11:39
PROVIDERS: ATTEND Internal Medicine Geriatric Medicine
DX: E08.40 Diabetes mellitus due to underlying condition with diabetic neuropathy, unspecified (principal); E89.6 Postprocedural adrenocortical (-medullary) hypofunction; E78.5 Hyperlipidemia, unspecified; R00.1 Bradycardia, unspecified; R03.0 Elevated blood-pressure reading, without diagnosis of hypertension
CPT/HCPCS: 36415; 80053; 80061; 82043; 82570; 83036; 83735; 84439; 84443; 85025

== ENCOUNTER 2024-09-27 08:33 | Emergency (ER) | payer OTHER ==
[2024-09-27 08:41] VITALS: BP 135/88; TEMP 97.7
--- NOTE | 2024-09-27 08:57 | ED ---
Extremity Problem HPI - General Chief complaint: Extremity Problem,Nontraumatic Stated complaint: L leg pain Time Seen by Provider: 09/27/24 08:42 Source: patient, RN notes reviewed Mode of arrival: ambulatory Limitations: no limitations - History of Present Illness Initial comments: This is a 39-year-old male who presents to the emergency department for left leg pain. Patient states that about 3 days ago he was [place] about a half an acre of land. The next day he developed pain in the left calf and states that it feels like a charley horse. Unsure if it is related to raking the leaves. He does have a small bruise on the kaur. He has had problems with charley horses before, but states that they always go away. This one has essentially been constant over the last 3 days. He is still able to ambulate. Denies any history of blood clots. Denies any chest pain or shortness of breath. MD Complaint: extremity pain - Related Data Home Medications Medication Instructions Recorded Confirmed Insulin Aspart [NovoLOG Flexpen] 15 units SQ AC-TID 03/15/21 09/27/24 Insulin Detemir [Levemir Flextouch] 20 units SQ HS 03/15/21 09/27/24 DULoxetine HCL [Cymbalta] 30 mg PO HS 09/27/24 09/27/24 Previous Rx's Medication Instructions Recorded Ketorolac [Toradol] 10 mg PO Q6HR PRN #15 tab 09/27/24 methocarbamoL [Robaxin-750] 1,500 mg PO TID PRN #30 tab 09/27/24 Allergies Allergy/AdvReac Type Severity Reaction Status Date / Time No Known Allergies Allergy Verified 09/27/24 10:06 Review of Systems ROS Statement: Those systems with pertinent positive or pertinent negative responses have been documented in the HPI. ROS Other: All systems not noted in ROS Statement are negative. Past Medical History Past Medical History: Diabetes Mellitus Additional Past Medical History / Comment(s): IDDM type I diagnosed 2008 (no insulin pump), COVID 11/12 History of Any Multi-Drug Resistant Organisms: None Reported Past Surgical History: No Surgical Hx Reported Additional Past Surgical History / Comment(s): eustachian tubes Past Psychological History: No Psychological Hx Reported Smoking Status: Never smoker Past Alcohol Use History: None Reported Past Drug Use History: None Reported - Past Family History Mother Family Medical History: Hyperlipidemia Additional Family Medical History / Comment(s): Elevated heart rate, RLS. Father Family Medical History: Coronary Artery Disease (CAD), Myocardial Infarction ([place]) Additional Family Medical History / Comment(s): Father had a [place] at the age of 50 yrs and has 2 coronary stents. General Exam Limitations: no limitations General appearance: alert, in no apparent distress Head exam: Present: atraumatic, normocephalic, normal inspection Respiratory exam: Present: normal lung sounds bilaterally. Absent: respiratory distress, wheezes, rales, rhonchi, stridor Cardiovascular Exam: Present: regular rate, normal rhythm, normal heart sounds. Absent: systolic murmur, diastolic murmur, rubs, gallop, clicks Extremities exam: Present: other (Left calf tenderness. No swelling or erythema. Small area of ecchymosis inferior to the right knee on the medial side. 2+ DP and PT pulses. Capillary refill less than 1 second.) Neurological exam: Present: alert, oriented X3, CN II-XII intact Psychiatric exam: Present: normal affect, normal mood Skin exam: Present: warm, dry, intact. Absent: rash Course Vital Signs 09/27/24 09/27/24 08:35 09:44 Temperature 97.7 F Pulse Rate 82 76 Respiratory 18 17 Rate Blood Pressure 135/88 135/88 O2 Sat by Pulse 99 100 Oximetry Medical Decision Making - Medical Decision Making This is a 39-year-old male who presents to the emergency department for left leg pain. Was pt. sent in by a medical professional or institution? @ -No Did you speak to anyone other than the patient for history? @ -No Did you review nursing and triage notes? @ -Yes, and I agree, it is accurate with regards to the patient's symptoms. Were old charts reviewed? @ -No Differential Diagnosis? @ -Differential Musculoskeletal Muscular strain, contusion, ligament sprain, fracture, arthritis, septic arth ritis, bursitis, cellulitis, muscle spasm, nerve compression, DVT, arterial occlusion, herpes zoster, electrolyte abnormality, tumor.... This is not meant to be in all inclusive list EKG interpreted by me (3pts min.)? @ -Not obtained X-rays interpreted by me (1pt min.)? @ -Not obtained CT interpreted by me (1pt min.)? @ -Not obtained U/S interpreted by me (1pt. min.)? @ -Duplex ultrasound of the left lower extremity obtained. My interpretation identifies no evidence of a DVT. What testing was considered but not performed? (CT, X-rays, U/S, labs)? Why? @ -None What meds were considered but not given? Why? @ -None Did you discuss the management of the patient with other professionals? @ -No Did you reconcile home meds? @ -No Was smoking cessation discussed for >3mins.? @ -No Was critical care preformed (if so, how long)? @ -No Were there social determinants of health that impacted care today? How? (Homelessness, low income, unemployed, alcoholism, drug addiction, transportation, low edu. Level, literacy, decrease access to med. care, senior living, rehab)? @ -No Was there de-escalation of care discussed even if they declined? (Discuss DNR or withdrawal of care, Hospice)? @ -No What co-morbidities impacted this encounter? (DM, HTN, Smoking, COPD, CAD, Cancer, CVA, Hep., AIDS, mental health diagnosis, sleep apnea, morbid obesity)? @ -DM Was patient admitted / discharged? @ -Discharged. Lab work demonstrates a mildly elevated lactic acid of 2.1 and was otherwise unremarkable. Duplex ultrasound demonstrates an acute versus chronic superficial clot in the proximal lesser saphenous vein. Findings reviewed with the patient. Symptoms well-controlled in the emergency department. Advised that blood thinner use is controversial in this case, however he is at increased risk for developing a DVT. Advised follow-up with hi s PCP in the next few days with the possibility of a repeat ultrasound. Toradol and Robaxin prescribed for symptomatic management. Advised warm compresses and elevation of the extremity as well. Patient discharged home in stable condition. Case discussed with ED attending Dr. Khan. Return precautions reviewed in depth, the patient is instructed to return to the emergency department with any new, worsening, or concerning symptoms. Patient verbalized understanding. Undiagnosed new problem with uncertain prognosis? @ -None Drug Therapy requiring intensive monitoring for toxicity (Heparin, Nitro, Insulin, Cardizem)? @ -None Were any procedures done? @ -None Diagnosis/symptom? @ -Left leg pain, superficial venous thrombosis of the left lower extremity Acute, or Chronic, or Acute on Chronic? @ -Acute Uncomplicated (without systemic symptoms) or Complicated (systemic symptoms)? @ -Uncomplicated Side effects of treatment? @ -None Exacerbation, Progression, or Severe Exacerbation] @ -Not applicable Poses a threat to life or bodily function? @ -No - Lab Data Result diagrams: 09/27/24 09:30 09/27/24 09:30 Lab Results 09/27/24 09/27/24 09/27/24 Range/Units : 09: 09:30 WBC 5.2 (3.8-10.6) k/uL RBC 5.24 (4.30-5.90) m/uL Hgb 15.5 (13.0-17.5) gm/dL Hct 47.3 (39.0-53.0) % MCV 90.4 (80.0-100.0) fL MCH 29.7 (25.0-35.0) pg MCHC 32.8 (31.0-37.0) g/dL RDW 12.8 (11.5-15.5) % Plt Count 213 (150-450) k/uL MPV 8.5 Neutrophils % 60 % Lymphocytes % 29 % Monocytes % 5 % Eosinophils % 2 % Basophils % 1 % Neutrophils # 3.1 (1.3-7.7) k/uL Lymphocytes # 1.5 (1.0-4.8) k/uL Monocytes # 0.3 (0-1.0) k/uL Eosinophils # 0.1 (0-0.7) k/uL Basophils # 0.0 (0-0.2) k/uL Sodium 138 (137-145) mmol/L Potassium 4.5 (3.5-5.1) mmol/L Chloride 102 (98-107) mmol/L Carbon Dioxide 29 (22-30) mmol/L Anion Gap 7 mmol/L BUN 19 (9-20) mg/dL Creatinine 0.71 (0.66-1.25) mg/dL Est GFR (CKD-EPI)AfAm >90 (>60 ml/min/1.73 sqM) Est GFR (CKD-EPI)NonAf >90 (>60 ml/min/1.73 sqM) Glucose 296 H (74-99) mg/dL Lactic Ac Sepsis Rflx Plasma Lactic Acid Homar 2.1 H* (0.7-2.0) mmol/L Calcium 10.1 (8.4-10.2) mg/dL Magnesium 1.8 (1.6-2.3) mg/dL Total Bilirubin 0.6 (0.2-1.3) mg/dL AST 22 (17-59) U/L ALT 27 (4-49) U/L Alkaline Phosphatase 76 (38-126) U/L Total Protein 8.1 (6.3-8.2) g/dL Albumin 4.9 (3.5-5.0) g/dL 09/27/24 Range/Units 09:51 WBC (3.8-10.6) k/uL RBC (4.30-5.90) m/uL Hgb (13.0-17.5) gm/dL Hct (39.0-53.0) % MCV (80.0-100.0) fL MCH (25.0-35.0) pg MCHC (31.0-37.0) g/dL RDW (11.5-15.5) % Plt Count (150-450) k/uL MPV Neutrophils % % Lymphocytes % % Monocytes % % Eosinophils % % Basophils % % Neutrophils # (1.3-7.7) k/uL Lymphocytes # (1.0-4.8) k/uL Monocytes # (0-1.0) k/uL Eosinophils # (0-0.7) k/uL Basophils # (0-0.2) k/uL Sodium (137-145) mmol/L Potassium (3.5-5.1) mmol/L Chloride (98-107) mmol/L Carbon Dioxide (22-30) mmol/L Anion Gap mmol/L BUN (9-20) mg/dL Creatinine (0.66-1.25) mg/dL Est GFR (CKD-EPI)AfAm (>60 ml/min/1.73 sqM) Est GFR (CKD-EPI)NonAf (>60 ml/min/1.73 sqM) Glucose (74-99) mg/dL Lactic Ac Sepsis Rflx Y Plasma Lactic Acid Homar (0.7-2.0) mmol/L Calcium (8.4-10.2) mg/dL Magnesium (1.6-2.3) mg/dL Total Bilirubin (0.2-1.3) mg/dL AST (17-59) U/L ALT (4-49) U/L Alkaline Phosphatase (38-126) U/L Total Protein (6.3-8.2) g/dL Albumin (3.5-5.0) g/dL - Radiology Data Radiology results: report reviewed, image reviewed Disposition Clinical Impression: Acute superficial venous thrombosis of left lower extremity Disposition: HOME SELF-CARE Instructions (If sedation given, give patient instructions): Superficial Thrombophlebitis (ED) Additional Instructions: Return to the emergency department with any new, worsening, or concerning sympt oms. Take the Toradol with Tylenol as needed for pain relief. If you choose to take the Toradol, do not take any other anti-inflammatories such as ibuprofen, take one or the other. Take the Robaxin as 1 to 2 tablets up to 3-4 times daily. You can apply warm compresses and elevate the leg. Follow-up with your primary care provider in the next couple of days. You may need a repeat ultrasound. Prescriptions: methocarbamoL [Robaxin-750] 1,500 mg PO TID PRN #30 tab PRN Reason: Pain Ketorolac [Toradol] 10 mg PO Q6HR PRN #15 tab PRN Reason: Pain Is patient prescribed a controlled substance at d/c from ED?: No Referrals: Nehemiah Zhu MD [Primary Care Provider] - 1-2 days Time of Disposition: 10:37
--- NOTE | 2024-09-27 09:27 | US ---
EXAMINATION TYPE: US venous doppler duplex LE LT DATE OF EXAM: 09/27/2024 9:18 AM COMPARISON: NONE CLINICAL INDICATION: Male, 39 years old with history of pain; Left calf and popliteal pain x 3 days - Hx diabetes type 1, Pain, Swelling TECHNIQUE: The lower extremity deep venous system is examined utilizing real time linear array sonog vicente with graded compression, color doppler sonography, and spectral doppler. SIDE PERFORMED: Left FINDINGS: VESSELS IMAGED: Common Femoral Vein Deep Femoral Vein Greater Saphenous Vein * Femoral Vein Popliteal Vein Small Saphenous Vein * Proximal Calf Veins (* superficial vessels) Right Leg: NA Left Leg: Negative for DVT; Acute vs chronic superficial clot within the proximal lesser saphenous vein. IMPRESSION: 1. Left lower extremity ultrasound negative for deep venous thrombosis. 2. Some superficial venous thrombosis within the lesser saphenous vein may be present as may be chron ic with incomplete obstruction. [facility], , 09/27/2024 9:25 AM
[2024-09-27] MEDS: KETOROLAC 15 MG/ML 1 ML VIAL IVP STA (09:34)
[2024-09-27] MEDS: SODIUM CHLORIDE 0.9% 1,000 ML IV STA (09:35)
[2024-09-27] MEDS: ORPHENADRINE 30 MG/ML 2 ML VIAL IVP STA (09:36)
[2024-09-27] MEDS: MAGNESIUM OXIDE 400 MG TAB PO STA (09:40)
[2024-09-27 09:44] LABS: Basophils % (A) 1 %; Eosinophils # (A) 0.1 k/uL (0-0.7); Eosinophils % (A) 2 %; HCT 47.3 % (39.0-53.0); HGB 15.5 gm/dL (13.0-17.5); Lymphocytes # (A) 1.5 k/uL (1.0-4.8); Lymphocytes % (A) 29 %; MCH 29.7 pg (25.0-35.0); MCHC 32.8 g/dL (31.0-37.0); MCV 90.4 fL (80.0-100.0); Mean Platelet Volume 8.5; Monocytes # (A) 0.3 k/uL (0-1.0); Monocytes % (A) 5 %; Neutrophils # (A) 3.1 k/uL (1.3-7.7); Neutrophils % (A) 60 %; Platelet Count 213 k/uL (150-450); RBC 5.24 m/uL (4.30-5.90); RDW 12.8 % (11.5-15.5); WBC 5.2 k/uL (3.8-10.6)
[2024-09-27 09:46] VITALS: PULSE 76; RESP 17
[2024-09-27 09:50] LABS: ALT 27 U/L (4-49); AST 22 U/L (17-59); African American GFR (CKD) >90 (>60 ml/min/1.73 sqM); Albumin 4.9 g/dL (3.5-5.0); Alkaline Phosphatase 76 U/L (38-126); Anion Gap 7 mmol/L; Blood Urea Nitrogen 19 mg/dL (9-20); Calcium 10.1 mg/dL (8.4-10.2); Carbon Dioxide 29 mmol/L (22-30); Chloride 102 mmol/L (98-107); Glucose 296 mg/dL (74-99); Magnesium 1.8 mg/dL (1.6-2.3); Non-African American GFR(CKD) >90 (>60 ml/min/1.73 sqM); Potassium 4.5 mmol/L (3.5-5.1); Sodium 138 mmol/L (137-145); Total Bilirubin 0.6 mg/dL (0.2-1.3); Total Protein 8.1 g/dL (6.3-8.2)
[2024-09-27] MEDS: ACET/COD 300 MG/30 MG STARTER PACK 6 TAB BTL PO STA (10:52)
== END 2024-09-27 10:57 | disposition home or self-care (01) ==
LOC: EC 08:33
DX: I82.812 Embolism and thrombosis of superficial veins of left lower extremity (principal); E10.9 Type 1 diabetes mellitus without complications; Z86.16 Personal history of COVID-19
CPT/HCPCS: 36415; 80053; 83605; 83735; 85025; 93971; 99284; 96374; 96375; 96361; J2360; J1885